=== PATIENT | male | born 1940 | race Caucasian/White ===

== ENCOUNTER 2016-06-29 03:07 | Inpatient (IN) | payer MEDICARE, MEDICAID ==
[~2016-06-29] VITALS: Ht 182.9 cm; Wt 102.2 kg
[2016-06-29] VITALS (25 sets, daily range): BP systolic 100–171; BP diastolic 63–97
[~2016-06-29 03:07] MED LIST: AGM875T PO; ASP81TEC PO; ASPI325T32 PO; ATEN25TA; AZIT-21 PO; CITA10TA; CLOP75TA; CLOP75TA PO; CLOP75TA28; FENO134C PO; FENO145T2 PO; FENO145T20; FNT100TD TD; FRSM40T; FURO20TA4; GBPN300C; HYDR-2890 PO; HYDR-32; HYDR-3720 PO; LISI-556; LISI2.5T PO; LISI2.5T56; LISI5TAB PO; LUBI24CA PO; METF500T4; METO25TA; MORP15TA PO; MORP60TA; MTF500T PO; MTL5T; MTP25TSR PO; MTX2.5T; NF-LUBIP24; NIA500ERT PO; OMEG-12 PO; ONDA4TAB11 PO; ORPH30AM2; OXYC-12; OXYC-12 PO; OXYC30TA76 PO; PGLT30T PO; PIOG1TBM PO; PIOG30TA25; PLAVIX; PREG150C; PREG300C PO; SIMV40TA2; SIMV40TA4 PO; SUCR1TAB PO; cefdinir
[2016-06-29] MEDS ORDERED: NS IV 1000 ML 1,000 ML IV ONE (03:18)
[2016-06-29 03:26] LABS: BASOPHILS % (AUTO) 1 % (0-10); EOSINOPHILS # (AUTO) 0.3 10^3/uL (0.0-0.3); EOSINOPHILS % (AUTO) 3 % (0-10); LYMPHOCYTES # (AUTO) 2.2 X 10^3 (1.0-4.0); LYMPHOCYTES % (AUTO) 28 % (12-44); MEAN CORPUSCULAR HEMOGLOBIN 28 PG (25-34); MEAN CORPUSCULAR HGB CONC 33 G/DL (32-36); MEAN CORPUSCULAR VOLUME 86 FL (80-99); MEAN PLATELET VOLUME 7.7 FL (7.4-10.4); MONOCYTES # (AUTO) 0.7 X 10^3 (0.0-1.0); MONOCYTES % (AUTO) 9 % (0-12); NEUTROPHILS # (AUTO) 4.6 X 10^3 (1.8-7.8); NEUTROPHILS % (AUTO) 59 % (42-75); PLATELET COUNT 312 10^3/uL (130-400); RED BLOOD COUNT 4.31 10^6/uL (4.35-5.85); RED CELL DISTRIBUTION WIDTH 13.2 % (10.0-14.5); WHITE BLOOD COUNT 7.7 10^3/uL (4.3-11.0)
[2016-06-29 03:42] LABS: ALANINE AMINOTRANSFERASE 20 U/L (0-55); ANION GAP 9 MMOL/L (5-14); ASPARTATE AMINO TRANSFERASE 21 U/L (5-34); BILIRUBIN,TOTAL 0.4 MG/DL (0.1-1.0); BLOOD UREA NITROGEN 33 MG/DL (7-18); BUN/CREATININE RATIO 27; CALCIUM 9.1 MG/DL (8.5-10.1); CARBON DIOXIDE 29 MMOL/L (21-32); CHLORIDE 99 MMOL/L (98-107); CREATININE SERUM 1.24 MG/DL (0.60-1.30); GFR ESTIMATED 57; GLUCOSE 130 MG/DL (70-105); MAGNESIUM 2.3 MG/DL (1.8-2.4); POTASSIUM 3.8 MMOL/L (3.6-5.0); SODIUM 137 MMOL/L (135-145); TOTAL PROTEIN 7.1 G/DL (6.4-8.2)
[2016-06-29 03:44] LABS: ALCOHOL < 10 MG/DL (<10)
[2016-06-29 03:48] LABS: TROPONIN I < 0.30 NG/ML (<0.30)
--- NOTE | 2016-06-29 04:12 | ED Fall/Injury ---
General Chief Complaint: Trauma-Non Activation Stated Complaint: [facility] Nursing Triage Note: fall from standing postion, c/o left rib pain. Source: patient Exam Limitations: no limitations History of Present Illness Time seen by provider: 03:09 Initial Comments This 75-year-old gentleman presents to the emergency room via EMS after having a fall in his restroom. He reports getting lightheaded when he went to the restroom. He fell into the bathtub striking his left lateral chest. He denies any head or neck injury. Reports intermittent episodes of dizziness/ lightheadedness over the past couple of years. He feels dry and constipated. He has a history of coronary artery disease and peripheral vascular disease. His last carotid artery exam on record was in 2008. Mentation and speech are sluggish but nursing staff familiar with him state this is his baseline. Dr. Reed in [place]. His neck cutter is Dr. Skaggs. Location Injury Occurred: home Occurred: just prior to arrival Allergies and Home Medications Allergies Coded Allergies: No Known Drug Allergies (Verified , 08/17/08) Home Medications Citalopram Hydrobromide 10 Mg Tablet #90 (Reported) Clopidogrel Bisulfate 75 Mg Tablet #90 (Reported) Fenofibrate Nanocrystallized 145 Mg Tablet #90 (Reported) Furosemide 20 Mg Tablet #90 (Reported) Lisinopril 2.5 Mg Tablet #90 (Reported) Lubiprostone 24 Mcg Capsule #60 (Reported) Metformin Hcl 500 Mg Tablet #180 (Reported) Metoprolol Succinate 25 Mg Tab.sr.24h #90 (Reported) Morphine Sulfate 60 Mg Tablet.sa #60 (Reported) Pioglitazone Hcl 30 Mg Tab #90 (Reported) Pregabalin 150 Mg Capsule #60 (Reported) Constitutional: no symptoms reported Eyes: No Symptoms Reported Ears, Nose, Mouth, Throat: no symptoms reported Respiratory: see HPI Cardiovascular: no symptoms reported Gastrointestinal: see HPI Genitourinary: no symptoms reported Musculoskeletal: see HPI Skin: no symptoms reported Psychiatric/Neurological: See HPI Past Aqpiian-Krbbwh-Lsjpes Hx Patient Social History Alcohol Use: Denies Use Recreational Drug Use: No Smoking Status: Never a Smoker Former Smoker/When Quit: Oct 07, 2004 Recent Foreign Travel: No Contact w/Someone Who Travel: No Recent Infectious Disease Expo: No Recent Hopitalizations: No Physical Abuse Screen: No Sexual Abuse: No Immunizations Up To Date Date of Pneumonia Vaccine: Oct 12, 2011 Seasonal Allergies Seasonal Allergies: No Surgeries HX Surgeries: Yes Surgeries: Coronary Stent, Orthopedic, Vascular Surgery (peripheral vascular stenting) Respiratory Hx Respiratory Disorders: No Cardiovascular Hx Cardiac Disorders: Yes Cardiac Disorders: Coronary Artery Disease, Heart Attack, Hypertension, Peripheral Vascular Neurological Hx Neurological Disorders: Yes Neurological Disorders: Neuropathy Reproductive System Hx Reproductive Disorders: No Sexually Transmitted Disease: No Genitourinary Hx Genitourinary Disorders: Yes Genitourinary Disorders: UTI-Chronic Gastrointestinal Hx Gastrointestinal Disorders: No Musculoskeletal Hx Musculoskeletal Disorders: Yes Musculoskeletal Disorders: Arthritis Endocrine Hx Endocrine Disorders: Yes Endocrine Disorders: Diabetes, Non-Insulin dep HEENT HX ENT Disorders: No Cancer Hx Cancer: No Psychosocial Hx Psychiatric Problems: Yes Behavioral Health Disorders: Depression Integumentary HX Skin/Integumentary Disorder: No Blood Transfusions Hx Blood Disorders: No Adverse Reaction to a Blood Tr: No Family Medical History Significant Family History: No Pertinent Family Hx Physical Exam Vital Signs Vital Sign - Last 12Hours 06/29/16 03:08 Temp 98.5 Pulse 88 Resp 16 B/P 150/89 Pulse Ox 99 O2 Delivery Room Air Capillary Refill : Less Than 3 Seconds General Appearance: WD/WN no apparent distress HEENT: PERRL/EOMI normal ENT inspection TMs normal other (oropharynx somewhat dry) Neck: normal inspection Cardiovascular: regular rate, rhythm no edema no murmur Respiratory: lungs clear normal breath sounds no respiratory distress no accessory muscle use other (left lateral chest tender to palpation) Gastrointestinal: normal bowel sounds non tender other (generally slightly firm abdomen) Extremities: normal inspection no pedal edema Neurologic/Psychiatric: no motor/sensory deficits alert normal mood/affect oriented x 3 other (mentation and speech slightly dulled) Skin: normal color warm/dry [place] Coma Score Best Eye Response: (4) Open Spontaneously Best Verbal Response: (5) Oriented Best Motor Response: (6) Obeys Commands [place] Total: 15 Progress/Results/Core Measures Results/Orders Lab Results Laboratory Tests Test 06/29/16 03:20 06/29/16 06:01 Range/Units Alanine Aminotransferase (ALT/SGPT) 20 0-55 U/L Albumin 4.0 3.2-4.5 G/DL Alkaline Phosphatase 74 40-136 U/L Anion Gap 9 5-14 MMOL/L Aspartate Amino Transf (AST/SGOT) 21 5-34 U/L BUN/Creatinine Ratio 27 Basophils # (Auto) 0.0 0.0-0.1 10^3/uL Basophils (%) (Auto) 1 0-10 % Blood Urea Nitrogen 33 H 7-18 MG/DL Calcium Level 9.1 8.5-10.1 MG/DL Carbon Dioxide Level 29 21-32 MMOL/L Chloride Level 99 98-107 MMOL/L Creatinine 1.24 0.60-1.30 MG/DL Eosinophils # (Auto) 0.3 0.0-0.3 10^3/uL Eosinophils (%) (Auto) 3 0-10 % Estimat Glomerular Filtration Rate 57 Glucose Level 130 H 70-105 MG/DL Hematocrit 37 L 36 L 40-54 % Hemoglobin 12.1 L 11.6 L 13.3-17.7 G/DL Lymphocytes # (Auto) 2.2 1.0-4.0 X 10^3 Lymphocytes (%) (Auto) 28 12-44 % Magnesium Level 2.3 1.8-2.4 MG/DL Mean Corpuscular Hemoglobin 28 25-34 PG Mean Corpuscular Hemoglobin Concent 33 32-36 G/DL Mean Corpuscular Volume 86 80-99 FL Mean Platelet Volume 7.7 7.4-10.4 FL Monocytes # (Auto) 0.7 0.0-1.0 X 10^3 Monocytes (%) (Auto) 9 0-12 % Neutrophils # (Auto) 4.6 1.8-7.8 X 10^3 Neutrophils (%) (Auto) 59 42-75 % Platelet Count 312 130-400 10^3/uL Potassium Level 3.8 3.6-5.0 MMOL/L Red Blood Count 4.31 L 4.35-5.85 10^6/uL Red Cell Distribution Width 13.2 10.0-14.5 % Serum Alcohol < 10 <10 MG/DL Sodium Level 137 135-145 MMOL/L Total Bilirubin 0.4 0.1-1.0 MG/DL Total Protein 7.1 6.4-8.2 G/DL Troponin I < 0.30 <0.30 NG/ML White Blood Count 7.7 4.3-11.0 10^3/uL My Orders Orders-LUIS A QUIROZ MD Alcohol (06/29/16 03:18) Cbc With Automated Diff (06/29/16 03:18) Comprehensive Metabolic Panel (06/29/16 03:18) Magnesium (06/29/16 03:18) Ua Culture If Indicated (06/29/16 03:18) Saline Lock/Iv-Start (06/29/16 03:18) Ns Iv 1000 Ml (Sodium Chloride 0.9%) (06/29/16 03:18) Troponin I (06/29/16 03:18) Chest 1 View, Ap/Pa Only (06/29/16 03:22) Ekg Tracing (06/29/16 03:49) Ct Chest/Abdomen/Pelvis W (06/29/16 03:49) Iohexol Injection (Omnipaque 350 Mg/Ml 1 (06/29/16 04:30) Ns (Ivpb) (Sodium Chloride 0.9% Ivpb Bag (06/29/16 04:30) Red Cells Leukocytes Reduced (06/29/16 04:49) Type And Screen (06/29/16 04:49) Fentanyl Injection (Sublimaze Injection (06/29/16 05:15) Hemoglobin And Hematocrit (06/29/16 05:31) Lidocaine 1% Injection (Xylocaine 1% Inj (06/29/16 06:12) Ns Iv 1000 Ml (Sodium Chloride 0.9%) (06/29/16 06:12) Heparin ([employer]) (Heparin ([employer])) (06/29/16 06:13) Fentanyl Injection (Sublimaze Injection (06/29/16 06:30) Medications Given in ED Current Medications Medications Dose Ordered Sig/Max Route Start Time Stop Time Status Last Admin Dose Admin Fentanyl Citrate 100 mcg ONCE ONCE IVP 06/29/16 05:15 06/29/16 05:16 DC 06/29/16 05:13 100 MCG Fentanyl Citrate 100 mcg ONCE ONCE IVP 06/29/16 06:30 06/29/16 06:32 DC 06/29/16 06:30 100 MCG Iohexol 100 ml ONCE ONCE IV 06/29/16 04:30 06/29/16 04:36 DC 06/29/16 04:21 100 ML Sodium Chloride 100 ml ONCE ONCE IV 06/29/16 04:30 06/29/16 04:36 DC 06/29/16 04:21 80 ML Sodium Chloride 1,000 ml @ 0 mls/hr Q0M ONCE IV 06/29/16 03:18 06/29/16 03:23 DC 06/29/16 03:27 0 MLS/HR Vital Signs/I&O Vital Sign - Last 12Hours 06/29/16 06/29/16 06/29/16 06/29/16 03:08 03:30 03:55 04:45 Temp 98.5 Pulse 88 91 87 97 Resp 16 17 9 15 B/P 150/89 135/87 148/81 146/97 Pulse Ox 99 94 99 98 O2 Delivery Room Air Room Air Room Air Room Air 06/29/16 06/29/16 06/29/16 06/29/16 05:02 05:16 05:30 06:00 Temp 98.2 Pulse 95 103 110 111 Resp 13 15 12 35 B/P 146/97 121/83 105/63 107/73 Pulse Ox 98 95 96 95 O2 Delivery Room Air Room Air Room Air Room Air 06/29/16 06/29/16 06:15 06:30 Temp 97.1 Pulse 113 114 Resp 28 18 B/P 138/84 Pulse Ox 94 94 O2 Delivery Room Air Room Air Blood Pressure Mean: 103 Progress Note #1: Time: 04:12 Progress Note after labs were reviewed. Patient was sent for CT of the chest, abdomen and pelvis for further evaluation of injuries. A liter of IV fluids is infusing. Progress Note #2: Time: 05:39 Progress Note Splenic hemorrhage was identified with active extravasation on CT scan. Case was discussed with the radiologist. Case was then reviewed with Dr. Garcia. Plan is for embolization versus surgery. Dr. Arias has been contacted and is agreeable to attempting embolization. laborer wrecking and salvaging team is being called in for the procedure. 4 units of PRBC are being held. Vital signs are stable at this time. Patient was given fentanyl 100 g for pain management. He normally takes a significant amount of morphine daily for maintenance pain management. He has not had any morphine since 16:00. Patient received 1 L of IV fluids.Dr. Garcia and Dr. Arias are in route. Patient is at higher risk for surgery given Plavix use and history of coronary artery disease and peripheral vascular disease. Therefore embolization seems to be a reasonable approach. I have suggested obtaining a carotid ultrasound at some point to further evaluate patient's syncopal/near syncopal episodes. Progress Note #3: Time: 05:59 Progress Note Patient is awaiting consultation with Dr. Garcia. Progress Note #4: Time: 06:37 Progress Note Patient was seen and evaluated by Dr. Holden. He was taken directly to [employer] [facility] for embolization. A second dose of Fentanyl was given for pain control. ECG Initial ECG Impression Date: Jun 29, 2016 Initial ECG Impression Time: 03:05 Initial ECG Rate: 87 Initial ECG Rhythm: Normal Sinus Comment sinus rhythm with no ST elevation or depression. LVH with secondary repolarization. No significant change from prior. Diagnostic Imaging Diagonstic Imaging: Xray Plain Films/CT/US/NM/MRI: chest Comments single view chest x-ray viewed by me. Report not available. No acute abnormalities appreciated. Diagonstic Imaging: CT Plain Films/CT/US/NM/MRI: chest, abdomen, pelvis Comments CT chest, abdomen, and pelvis viewed by me and statrad report reviewed. There are fractures of the 8-10 ribs without significant displacement. There is subtle anterior lateral seventh rib fracture as well. There is inferior splenic laceration with moderate to large. Splenic hematoma and active extravasation at the inferior aspect of the spleen. Surgical consultation was recommended. Small additional hemoperitoneum in the right upper quadrant and pelvis, likely related to splenic injury. There are fractures of L1 through L4 transverse processes of indeterminate age. Departure Impression Impression: Primary Impression: Spleen laceration Qualified Code: S36.039A - Unspecified laceration of spleen, initial encounter Additional Impressions: Fall on same level Qualified Code: W18.30XA - Fall on same level, unspecified, initial encounter Lightheadedness Rib fractures Qualified Code: S22.42XA - Multiple fractures of ribs, left side, initial encounter for closed fracture Disposition: ADMITTED INPATIENT Condition: Improved Decision to Admit Reason: Admit from ER (Trauma) Decision to Admit/Date: Jun 29, 2016 Time/Decision to Admit Time: 05:35 Departure-Patient Inst. Referrals: Hellen KRAMER MD (PCP/Family) Primary Care Physician LUIS A QUIROZ MD Jun 29, 2016 04:12
[2016-06-29] MEDS ORDERED: IOHEXOL 350 MG/ML 100 ML (OMNIPAQUE 350) VIAL IV ONE (04:30)
[2016-06-29] MEDS ORDERED: NS 100 ML (IVPB) BAG IV ONE (04:30)
[2016-06-29] MEDS ORDERED: fentaNYL INJECTION 100 MCG/2 ML AMP IVP ONE ×2 (05:15→06:30)
[2016-06-29] MEDS ORDERED: LIDOCAINE 1% INJ 20 ML (XYLOCAINE) VIAL ONE (06:12)
[2016-06-29] MEDS ORDERED: NS IV 1000 ML 1,000 ML ONE ×2 (06:12→07:15)
[2016-06-29] MEDS ORDERED: HEParin (CATH LAB) 2,000 ML IV ONE (06:13)
--- NOTE | 2016-06-29 06:26 | History & Physical-Surgical ---
History of Present Illness History of Present Illness Reason for visit/HPI This is a modified Trauma Activation. Pt is a 75 yo male with fall and CT shows Splenic Laceration. This 75-year-old gentleman presents to the emergency room via EMS after having a fall in his restroom. He reports getting lightheaded when he went to the restroom. He fell into the bathtub striking his left lateral chest. He denies striking his head; denies head or neck pain. Reports intermittent episodes of dizziness/lightheadedness over the past couple of years. He feels dry and constipated. He has a history of coronary artery disease and peripheral vascular disease. His last carotid artery exam on record was in 2008. Mentation and speech are sluggish. He complains of abdominal pain, rating it as at least 9 out of 10. He thinks his belly is a little bit distended. Location Injury Occurred: home Occurred: just prior to arrival Pt had stable vitals when I was called around 5 am, Pulse 90. Now it is 114. Hg was 12.1 and now just less than 3 hours later it is 11.6. On my way in we also called Interventional Radiology. Date of Admission 06/29/2016 I consulted on this patient on 06/29/16 06:21 Attending Physician Admitting Physician Hellen Tomas MD Consult Allergies and Home Medications Allergies Coded Allergies: No Known Drug Allergies (Verified , 08/17/08) Home Medications Citalopram Hydrobromide 10 Mg Tablet #90 (Reported) Clopidogrel Bisulfate 75 Mg Tablet #90 (Reported) Fenofibrate Nanocrystallized 145 Mg Tablet #90 (Reported) Furosemide 20 Mg Tablet #90 (Reported) Lisinopril 2.5 Mg Tablet #90 (Reported) Lubiprostone 24 Mcg Capsule #60 (Reported) Metformin Hcl 500 Mg Tablet #180 (Reported) Metoprolol Succinate 25 Mg Tab.sr.24h #90 (Reported) Morphine Sulfate 60 Mg Tablet.sa #60 (Reported) Pioglitazone Hcl 30 Mg Tab #90 (Reported) Pregabalin 150 Mg Capsule #60 (Reported) Past Jqaefbp-Pjwttl-Tmkkwi Hx Patient Social History Alcohol Use: Denies Use Recreational Drug Use: No Smoking Status: Never a Smoker Former Smoker/When Quit: Oct 07, 2004 Recent Foreign Travel: No Contact w/Someone Who Travel: No Recent Infectious Disease Expo: No Recent Hopitalizations: No Physical Abuse Screen: No Sexual Abuse: No Immunizations Up To Date Date of Pneumonia Vaccine: Oct 12, 2011 Seasonal Allergies Seasonal Allergies: No Surgeries HX Surgeries: Yes Surgeries: Coronary Stent, Gallbladder, Orthopedic, Vascular Surgery ( peripheral vascular stenting) Respiratory Hx Respiratory Disorders: No Cardiovascular Hx Cardiac Disorders: Yes Cardiac Disorders: Coronary Artery Disease, Heart Attack, Hypertension, Peripheral Vascular Neurological Hx Neurological Disorders: Yes Neurological Disorders: Neuropathy Reproductive System Hx Reproductive Disorders: No Sexually Transmitted Disease: No Genitourinary Hx Genitourinary Disorders: Yes Genitourinary Disorders: UTI-Chronic Gastrointestinal Hx Gastrointestinal Disorders: No Musculoskeletal Hx Musculoskeletal Disorders: Yes Musculoskeletal Disorders: Arthritis Endocrine Hx Endocrine Disorders: Yes Endocrine Disorders: Diabetes, Non-Insulin dep HEENT HX ENT Disorders: No Cancer Hx Cancer: No Psychosocial Hx Psychiatric Problems: Yes Behavioral Health Disorders: Depression Integumentary HX Skin/Integumentary Disorder: No Blood Transfusions Hx Blood Disorders: No Adverse Reaction to a Blood Tr: No Family Medical History Significant Family History: No Pertinent Family Hx, Cancer (brother of colon cancer), Diabetes (3 sisters) Constitutional: No chills, No diaphoresis, dizziness weakness EENTM: hearing loss vision lossNo throat swelling Respiratory: No cough, No dyspnea on exertion Cardiovascular: edemaNo palpitations, vascular heart diseas Gastrointestinal: abdominal painNo hematemesis, No melena, No nausea, No vomiting Genitourinary: No dysuria, No hematuria Musculoskeletal: back pain joint pain joint swelling muscle stiffness Skin: No change in color, No change in hair/nails Psychiatric/Neurological: Denies Anxiety, Denies Depressed, Paresthesia Weakness Other pt denies any swollen lymph nodes, no heat or cold intolerance. He does have diabetic neuropathy of his legs Physical Exam Vital Signs Vital Sign - Last 12Hours 06/29/16 03:08 Temp 98.5 Pulse 88 Resp 16 B/P 150/89 Pulse Ox 99 O2 Delivery Room Air Capillary Refill : Less Than 3 Seconds General Appearance: WD/WN Anxious Mild Distress Obese Eyes: Bilateral Eye EOMI, Bilateral Eye PERRL HEENT: Pharynx NormalNo Pale Conjunctivae (L), No Pale Conjunctivae (R) Neck: Non Tender Supple Respiratory: Lungs Clear Normal Breath Sounds No Accessory Muscle Use No Respiratory Distress Cardiovascular: No MurmurNo JVD, Tachycardia Gastrointestinal: Normal Bowel Sounds Distended Tenderness (diffusely) Rectal: Deferred Genital/Rectal: Normal Genital Exam (circumcised, no masses, testicles descended) Back: CVA Tenderness (L) Muscle Spasm Other (tender over ribs) Extremity: No Calf Tenderness Pedal Edema (up into mid sánchez level, erythema) Pelvis Stable Neurologic/Psychiatric: Alert No Motor/Sensory Deficits senior planner II-XII Norm as Tested Other (almost has a "foggy" mentation, cannot remember things about family) Skin: Normal Color Warm/Dry Lymphatic: No Adenopathy (neck, axilla or groin) Data Review Labs Laboratory Tests 06/29/16 03:20: Alanine Aminotransferase (ALT/SGPT) 20, Albumin 4.0, Alkaline Phosphatase 74, Anion Gap 9, Aspartate Amino Transf (AST/SGOT) 21, BUN/Creatinine Ratio 27, Basophils # (Auto) 0.0, Basophils (%) (Auto) 1, Blood Urea Nitrogen 33H, Calcium Level 9.1, Carbon Dioxide Level 29, Chloride Level 99, Creatinine 1.24, Eosinophils # (Auto) 0.3, Eosinophils (%) (Auto) 3, Estimat Glomerular Filtration Rate 57, Glucose Level 130H, Hematocrit 37L, Hemoglobin 12.1L, Lymphocytes # (Auto) 2.2, Lymphocytes (%) (Auto) 28, Magnesium Level 2.3, Mean Corpuscular Hemoglobin 28, Mean Corpuscular Hemoglobin Concent 33, Mean Corpuscular Volume 86, Mean Platelet Volume 7.7, Monocytes # (Auto) 0.7, Monocytes (%) (Auto) 9, Neutrophils # (Auto) 4.6, Neutrophils (%) (Auto) 59, Platelet Count 312, Potassium Level 3.8, Red Blood Count 4.31L, Red Cell Distribution Width 13.2, Serum Alcohol < 10, Sodium Level 137, Total Bilirubin 0.4, Total Protein 7.1, Troponin I < 0.30, White Blood Count 7.7 06/29/16 06:01: Hematocrit 36L, Hemoglobin 11.6L Assessment/Plan Assessment/Plan Assessment/Plan Trauma - Same level Fall Rib fracture 8,9, and 10 Splenic Laceration with intraperitoneal blood - Pt is going straight to specialist employee labor relations, will monitor H/H and he may need to go urgently to the OR. Pt was told about the splenic laceration and the possible need for surgery. If he needs surgery would try to first save spleen, but last resort would be splenectomy. If spleen is removed he is a risk of streptococcal sepsis and would need vaccinations. DM with neuropathy, CAD, Arthritis Max medical management. DEJAH REBOLLAR DO Jun 29, 2016 06:26
--- NOTE | 2016-06-29 06:57 | Diagnostic Imaging Report ---
Clinical indication: Patient is status post fall and complains of left rib pain. Exam: Portable chest x-ray upright view. Comparisons: Chest x-ray dated 10/16/2014. Findings: Lungs/pleura: Lungs are clear. There is no pneumothorax. There is no pleural effusion. Mediastinum: Unremarkable. Pulmonary vasculature: Unremarkable. Heart: Unremarkable. Bones/extrathoracic soft tissue: Concern for minimally displaced rib fracture involving the lateral aspect of the left T8 and T9 ribs. Impression: 1: Concern for minimally displaced rib fracture involving the lateral aspect of left T8 and T9 ribs. 2: Otherwise, there is no radiographic evidence of acute cardiopulmonary process. Dictated by: Dictated on workstation # [id number]
[2016-06-29] MEDS ORDERED: NS IV 1000 ML 1,000 ML IV SCH (07:30)
[2016-06-29] MEDS ORDERED: NS IV 500 ML 0 ML ONE (07:40)
[2016-06-29] MEDS: NS IV 1000 ML 1,000 ML IV SCH ×4 (08:00→20:02)
[2016-06-29] MEDS ORDERED: ONDANSETRON 4 MG/2 ML (SDV) Z0FRAN ONE (08:56)
[2016-06-29] MEDS ORDERED: proPOfol 200 MG/20 ML (DIPRIVAN) VIAL IV ONE (08:56)
[2016-06-29] MEDS ORDERED: ROCURONIUM 50 MG/5 ML (ZEMURON) VIAL IV ONE (08:56)
[2016-06-29] MEDS ORDERED: LACTATED RINGERS 1,000 ML IV ONE (08:56)
[2016-06-29] MEDS ORDERED: MIDAZOLAM 2 MG/2 ML (VERSED) VIAL ONE (08:57)
[2016-06-29] MEDS ORDERED: fentaNYL INJECTION 250 MCG/5 ML AMP ONE (08:57)
[2016-06-29] MEDS ORDERED: LACTATED RINGERS 1,000 ML IV PRN (09:34)
[2016-06-29] MEDS ORDERED: fentaNYL INJECTION 100 MCG/2 ML AMP ONE ×2 (09:35→22:32)
--- NOTE | 2016-06-29 10:44 | Radiology Progress Note ---
Progress Note-Radiology Progress Note s/p angiogram with distal embolization of splenic artery branchs that appeared to be feeding the lacerated area. The active bleeding stopped in the middle of the procedure spontaneously. Prophylactic distal embolization of 2 branches less than 10% of the spleen is performed. The procedure details will be dictated separately. ELIZABETH PEREZ MD Jun 29, 2016 10:44
--- NOTE | 2016-06-29 11:12 | Diagnostic Imaging Report ---
PROCEDURE: CT chest, abdomen, and pelvis with contrast. TECHNIQUE: Multiple contiguous axial images were obtained through the chest, abdomen, and pelvis after the administration of intravenous contrast. INDICATION: Fall. Left rib pain. CONTRAST: 100 mL of Omnipaque 350 was administered intravenously. COMPARISON: The exam from 04/07/2010 was reviewed. FINDINGS: CT CHEST: There is a nodule measuring 7 mm in the right middle lobe. This compares to a nodular density seen in the same area that appeared slightly smaller on the 2010 exam. Although it appears slightly larger at this time, the difference over 6 years is minimal and is favored to be benign. There is a 6 mm stable left lung base nodule in the left lower lobe. There is minimal atelectasis in the right lower lobe. There are minimally displaced left rib fractures involving the posterior aspects of the 12th, 10th, 9th, and 8th ribs. There is no bleeding into the peritoneal cavity. There is no hematoma in the mediastinum. The thoracic aorta is ectatic. There is no lymphadenopathy or soft tissue mass of significance seen. CT ABDOMEN AND PELVIS: There is a perisplenic moderate sized hematoma with evidence of active hemorrhage and contrast extravasation that accumulates in the perisplenic region. Some of the hemorrhage is subcapsular; however, most of it is into the adjacent perisplenic peritoneal cavity. A small amount of hemorrhage is seen in the pelvis. A small amount of perihepatic fluid is seen. The area of splenic laceration is within the lateral inferior aspect and is about 2.4 cm deep into the splenic parenchyma. This is a grade 3 peripheral splenic parenchymal injury. There is no extension of the injury into the splenic hilum or the major hilar vascular branches seen. The adrenal glands appear unremarkable. The pancreas appears unremarkable. The kidneys have symmetric enhancement and excretion without hematoma or laceration. No hydronephrosis. The liver demonstrate no laceration. There are cholecystectomy clips seen. The abdominal aorta demonstrates mild atherosclerotic plaque. There is mild atherosclerotic plaque in the common iliac arteries bilaterally. There is a prosthesis in the right hip with beam hardening artifacts obscuring portions of the pelvis. There is a normal appearance of the urinary bladder. The bowel loops appear grossly unremarkable. There is no free air identified. The osseous structures demonstrate degenerative changes in the lumbar spine. IMPRESSION: CT CHEST: 1. Minimally displaced left rib fractures involving the 8th, 9th, 10th, and 12th ribs without significant hemorrhage or contusion in the chest. 2. A nonspecific right middle lobe 7 mm nodule is minimally larger compared to the 2010 exam. A [address] chest is recommended. CT ABDOMEN/PELVIS: 1. Splenic laceration involving the inferior tip of the splenic parenchyma with surrounding subcapsular and peritoneal moderate hematoma with active hemorrhage. 2. No other solid organ injury is seen. A small amount of perihepatic and pelvic peritoneal hematoma is seen. The ER physician taking care of the patient has diagnosed the splenic injury and was also notified by radiology [employer] service. Dictated by: Dictated on workstation # [id number]
--- NOTE | 2016-06-29 12:39 | Radiology-Procedure Note ---
Procedures/Interventions Procedure/Intervention Procedure: Celiac angiogram, splenic artery angiogram and multiple distal branch splenic artery angiograms Embolization of distal subsegmental the splenic branch intraparenchymal arteries near the laceration. Followup splenic artery angiogram. Angiogram of the right groin. Closure of right common femoral arteriotomy with MynxGrip device. Conscious sedation for 3.5 hours INDICATION: Splenic artery laceration with a moderate sized perisplenic hematoma and evidence of arterial active extravasation of contrast on CT scan CONSENT: Informed consent was obtained from the patient. The risks, benefits, potential complications and alternatives were reviewed and all questions answered to the patient's satisfaction. Potential vascular, catheter related and nontarget embolization/chemotherapy related complications were discussed with the patient. The patient's vital signs, cardiac rhythm, and pulse oximetry were observed throughout the procedure by qualified nursing personnel. Sedation: Fentanyl 25 mcg IV. Contrast: 100 mL of Isovue 300. Fluoroscopy time: 85.3 minutes PROCEDURE: After maximal barrier sterile preparation and draping, 1% lidocaine was utilized for local anesthesia. Right common femoral artery puncture utilizing a micropuncture needle was performed The micropuncture access was exchanged over a wire for a 5 [place] sheath. Subsequently, a 5 [place] C2 Cobra catheter was advanced into the abdominal aorta. Subsequently, the catheter was repositioned into the celiac artery. Celiac angiogram was performed and demonstrates a patent splenic artery, and common hepatic artery. Second order selection into the splenic artery was performed and contrast power injection arteriogram with digital subtraction is performed and demonstrates active extravasation of contrast from the lower from lateral aspect of the spleen. Subsequently, a 2.8 [place] Prograte microcatheter was introduced into the Cobra catheter and the it was advanced into the splenic artery which is long and tortuous. The 5 [place] Cobra catheter was not stable enough for distal catheterization of the branch vessels of the splenic artery. Exchange over a wire for a 5 [place] angled tapered catheter is performed and the with attempted to be advanced further into the splenic artery without significant improvement in the stability. Loss of access resulted and the introduction of 4 [place] C2 Cobra that was introduced into the celiac trunk and then into the splenic artery was performed and negotiated with an angled glide wire into the proximal to mid portion of the splenic artery. It was impossible to advance the catheter due to significant tortuosity. This however was utilized for the introduction of a 2.8 [place] microcatheter which was advanced further into the splenic artery to the hilum of the and the branch vessels then were successfully catheterized. 2 main large branches at the bifurcation of the splenic artery with multiple other branches appearing within very short segment near the splenic hilum. Eventually after doing multiple catheterizations of a small branches and the focus in the branches of the vessels feeding the area of injury , 2 sixth order distal branches were embolized with Gelfoam slurry within the distal aspect of the spleen feeding the spleen around the laceration site and the another similar branch was embolized with the 2 mm coils, 2 coils were utilized. The embolization is based on the abnormal angiogram and site of laceration without active extravasation seen at this point. Active extravasation stopped spontaneously during the exam. Followup angiogram from the splenic artery mainstem demonstrate satisfactory results with embolized the branches around the laceration and no active extravasation was present. Subsequently, the microcatheter and the 4 [place] Cobra catheter was removed over a wire. Subsequently, utilizing the sheath in the right groin, an angiogram was performed with the tip of the sheath in the right external iliac artery. The external iliac and the common femoral artery and the bifurcation are all patent. There is good position of the arterial access over the femoral head in the mid common femoral artery suitable for closure device. Closure device utilizing MynxGrip collagen plug is successfully utilized with no immediate hematoma or bleeding noted. The patient tolerated the procedure well with no immediate complications. FINDINGS: Active extravasation of contrast is seen from inferior lateral aspect of the spleen with the irregularities in the parenchyma in the enhancement compatible with splenic lacerations. This involves about 10% of the splenic parenchyma inferiorly and laterally. The initial angiograms demonstrated the active extravasation that has resolved spontaneously during procedure. The distal branches near the laceration, total of a 2 branches embolized with Gelfoam and one branch embolized with the 2 mm coils was performed in the distal branches which had some distal irregularity and adjacent to the laceration based on the location without active extravasation at this time. This is felt to be appropriate to prevent rebleeding since this cessation of active extravasation could be temporary spasm or in adequate left related. It should be safe without the splenic complications given the very distal embolization. IMPRESSION: Successful embolization of distal splenic artery branches to the inferior lateral aspect of the spleen near the site of laceration. ELIZABETH PEREZ MD Jun 29, 2016 12:39
[2016-06-29] MEDS ORDERED: inSUlin (REGULAR) HUMAN 1 UNIT/0.01 ML (CHARGE PER UNIT) SC SCH (19:30)
[2016-06-29 21:55] LABS: ABG HCO3 25 MMOL/L (23-27); ABG OXYGEN SATURATION 95 % (94-100); ABG PCO2 41 MMHG (35-45); ABG PH 7.42 (7.37-7.43); ABG PO2 69 MMHG (79-93); ABG TCO2 26.5 MMOL/L (21.0-31.0)
[2016-06-29 22:05] LABS: ALLENS TEST YES-POS; PATIENT TEMP 100.3
[2016-06-29] MEDS: fentaNYL INJECTION 100 MCG/2 ML AMP IV PRN (22:44)
[2016-06-29] MEDS ORDERED: fentaNYL INJECTION 100 MCG/2 ML AMP IVP PRN (22:45)
[2016-06-30] VITALS (24 sets, daily range): BP systolic 120–174; BP diastolic 72–99
[2016-06-30] MEDS: inSUlin (REGULAR) HUMAN 1 UNIT/0.01 ML (CHARGE PER UNIT) SC SCH ×4 (01:22→18:20)
[2016-06-30] MEDS: fentaNYL INJECTION 100 MCG/2 ML AMP IV PRN ×2 (01:22→02:54)
[2016-06-30] MEDS: ONDANSETRON 4 MG/2 ML (SDV) Z0FRAN IVP PRN ×4 (02:34→23:40)
[2016-06-30 04:28] LABS: BASOPHILS % (AUTO) 0 % (0-10); EOSINOPHILS % (AUTO) 0 % (0-10); LYMPHOCYTES % (AUTO) 8 % (12-44); MEAN CORPUSCULAR HEMOGLOBIN 28 PG (25-34); MEAN CORPUSCULAR HGB CONC 32 G/DL (32-36); MEAN CORPUSCULAR VOLUME 87 FL (80-99); MEAN PLATELET VOLUME 8.1 FL (7.4-10.4); MONOCYTES % (AUTO) 8 % (0-12); NEUTROPHILS # (AUTO) 9.7 X 10^3 (1.8-7.8); NEUTROPHILS % (AUTO) 83 % (42-75); PLATELET COUNT 286 10^3/uL (130-400); RED CELL DISTRIBUTION WIDTH 13.4 % (10.0-14.5); WHITE BLOOD COUNT 11.6 10^3/uL (4.3-11.0)
[2016-06-30 04:42] LABS: ANION GAP 9 MMOL/L (5-14); BLOOD UREA NITROGEN 26 MG/DL (7-18); BUN/CREATININE RATIO 25; CALCIUM 8.5 MG/DL (8.5-10.1); CARBON DIOXIDE 24 MMOL/L (21-32); CHLORIDE 106 MMOL/L (98-107); CREATININE SERUM 1.02 MG/DL (0.60-1.30); GFR ESTIMATED > 60; GLUCOSE 172 MG/DL (70-105); MAGNESIUM 2.1 MG/DL (1.8-2.4); PHOSPHORUS 2.2 MG/DL (2.3-4.7); POTASSIUM 3.9 MMOL/L (3.6-5.0); SODIUM 139 MMOL/L (135-145)
[2016-06-30] MEDS: MAGNESIUM 1 GM/100 ML IVPB 100 ML IV SCH (05:24)
[2016-06-30] MEDS: KCL 20 MEQ TAB (K-DUR) PO SCH (05:24)
[2016-06-30] MEDS: POTASSIUM CL 10MEQ/50ML IVPB 50 ML IV SCH (05:24)
[2016-06-30] MEDS ORDERED: NS IV 1000 ML 1,000 ML ONE (05:38)
--- NOTE | 2016-06-30 08:05 | Diagnostic Imaging Report ---
Portable upright radiograph of the chest. INDICATION: Dyspnea. FINDINGS: Bibasilar atelectasis is seen. The heart size is at the upper limits of normal. There is no effusion or pneumothorax. The mediastinum and marli appear unremarkable. IMPRESSION: Bibasilar atelectasis. Dictated by: Dictated on workstation # [id number]
[2016-06-30] MEDS: CLOPIDOGREL 75 MG (PLAVIX) TABLET PO SCH (08:32)
[2016-06-30] MEDS ORDERED: MORP60TA52 PO (10:37)
[2016-06-30] MEDS ORDERED: MORP15TA PO (10:37)
[2016-06-30] MEDS: NS IV 1000 ML 1,000 ML IV SCH ×2 (12:00→15:49)
--- NOTE | 2016-06-30 13:41 | Progress Note ---
Subjective Subjective/Events-last exam Pt seen and examined, he is having some nausea and vomiting. States he is hungry but can't keep it down. Pt complains of some abdominal pain. Review of Systems General: No Chills, No Night Sweats HEENT: Head AchesNo Visual Changes Pulmonary: No Cough Cardiovascular: No: Chest Pain, Palpitations Gastrointestinal: : Abdominal Pain: Nausea: Vomiting Neurological: No: Change in speech, Weakness Objective Exam Vital Signs Date Time Temp Pulse Resp B/P Pulse Ox O2 Delivery O2 Flow Rate FiO2 06/30/16 12:33 99.4 06/30/16 12:00 Room Air 06/30/16 12:00 91 10 174/91 99 Room Air 06/30/16 11:00 94 7 162/84 93 Room Air 06/30/16 10:00 121 18 168/91 95 Room Air 06/30/16 08:30 98.8 89 10 154/76 94 Room Air 06/30/16 08:15 Room Air 06/30/16 08:00 90 21 154/76 95 Room Air 06/30/16 07:00 85 06/30/16 07:00 86 17 132/77 93 Room Air 06/30/16 06:00 89 11 146/78 94 Room Air 06/30/16 05:00 90 9 152/75 95 Room Air 06/30/16 04:00 97 Room Air 06/30/16 04:00 98.4 90 18 150/78 94 Room Air 06/30/16 03:00 92 24 148/95 92 Room Air 06/30/16 02:00 87 10 143/79 96 Room Air 06/30/16 01:00 90 06/30/16 01:00 89 7 145/86 95 Room Air 06/30/16 00:00 97 Room Air 06/30/16 00:00 98.5 87 20 140/74 97 Room Air 06/29/16 23:00 87 9 149/81 95 Room Air 06/29/16 22:00 91 11 144/75 96 Room Air 06/29/16 21:00 91 11 146/75 92 Room Air 06/29/16 20:00 96 Room Air 06/29/16 20:00 99.2 89 18 142/96 96 Room Air 06/29/16 19:00 92 13 142/96 95 Room Air 06/29/16 19:00 92 06/29/16 18:00 95 12 171/97 97 Room Air 06/29/16 17:20 112 17 120/71 95 Room Air 06/29/16 16:55 97 10 97 Room Air 06/29/16 16:00 99.1 06/29/16 15:00 98 35 118/68 98 Room Air 06/29/16 14:30 104 10 107/77 95 Room Air I & O 06/30/16 07:00 Intake Total 2180 ml Output Total 850 ml Balance 1330 ml Capillary Refill : Less Than 3 Seconds General Appearance: WD/WN Anxious Mild Distress Obese HEENT: Pharynx NormalNo Pale Conjunctivae (L), No Pale Conjunctivae (R) Neck: Non Tender Supple Respiratory: Lungs Clear Normal Breath Sounds No Accessory Muscle Use No Respiratory Distress Cardiovascular: No MurmurNo JVD, Tachycardia Gastrointestinal: normal bowel sounds distended (slightly more than normal for pt) tenderness (diffusely) other (generally slightly firm abdomen) Extremity: No Calf Tenderness Pedal Edema (up into mid sánchez level, erythema) Pelvis Stable Neurologic/Psychiatric: Alert No Motor/Sensory Deficits browning processor II-XII Norm as Tested Other (Pt knows he is in hospital and knows its in [place], knows his name....but you almost have to drag the information out of him.) Skin: Normal Color Warm/Dry Lymphatic: No Adenopathy (neck, axilla or groin) Results Lab Laboratory Tests 06/29/16 13:54: Hemoglobin 9.3L 06/29/16 21:45: Loyd Test YES-POS, Arterial Blood Base Excess 1.0, Arterial Blood HCO3 25, Arterial Blood Oxygen Saturation 95, Arterial Blood Partial Pressure CO2 41, Arterial Blood Partial Pressure O2 69L, Arterial Blood Total CO2 26.5, Arterial Blood pH 7.42, Blood Gas Inspired Oxygen ROOM AIR, Blood Gas Patient Temperature 100.3, Blood Gas Puncture Site RT RADIAL, Blood Gas Ventilator Setting NO 06/30/16 01:18: Glucometer 211H 06/30/16 03:50: Hemoglobin 8.7L, Anion Gap 9, BUN/Creatinine Ratio 25, Basophils # (Auto) 0.0, Basophils (%) (Auto) 0, Blood Urea Nitrogen 26H, Calcium Level 8.5, Carbon Dioxide Level 24, Chloride Level 106, Creatinine 1.02, Eosinophils # (Auto) 0.0 , Eosinophils (%) (Auto) 0, Estimat Glomerular Filtration Rate > 60, Glucose Level 172H, Hematocrit 27L, Lymphocytes # (Auto) 1.0, Lymphocytes (%) (Auto) 8L , Magnesium Level 2.1, Mean Corpuscular Hemoglobin 28, Mean Corpuscular Hemoglobin Concent 32, Mean Corpuscular Volume 87, Mean Platelet Volume 8.1, Monocytes # (Auto) 1.0, Monocytes (%) (Auto) 8, Neutrophils # (Auto) 9.7H, Neutrophils (%) (Auto) 83H, Phosphorus Level 2.2L, Platelet Count 286, Potassium Level 3.9, Red Blood Count 3.10L, Red Cell Distribution Width 13.4, Sodium Level 139, White Blood Count 11.6H 06/30/16 12:32: Glucometer 146H Assessment/Plan Assessment/Plan Assessment/Plan Trauma - Same level Fall -- will keep in ICU one more day for close monitoring. Rib fracture 8,9, and 10 Splenic Laceration with intraperitoneal blood Anemia secondary to splenic lac - monitor H/H Dizzy spells - order Carotid US to rule out carotids as cause of mentation DM with neuropathy, CAD, Arthritis Max medical management; will consult hospitalist. Clinical Quality Measures DVT/VTE Risk/Contraindication: Risk Factor Score Per Nursin RFS Level Per Nursing on Admit: 3=High DEJAH REBOLLAR DO Jun 30, 2016 13:41
--- NOTE | 2016-06-30 14:50 | Diagnostic Imaging Report ---
PROCEDURE: US Carotid Duplex Bilateral. TECHNIQUE: Multiple real-time grayscale images were obtained over the carotid arteries in various projections bilaterally. Additional duplex Doppler and color Doppler images were also obtained. INDICATION: Dizziness. FINDINGS: Grayscale images demonstrate mild atherosclerotic plaque seen in the carotid bifurcation bilaterally. The color Doppler evaluation demonstrates patency of the common, internal, and external carotid arteries on both sides. There is antegrade flow in the left vertebral artery and antegrade flow in the right vertebral artery as well. The peak systolic velocities in the right ICA are 52, 88, and 116 cm/s from proximal/ distal and on the left 114, 109, and 96 cm/s. ICA/ CCA ratios are up to 1.9 on the right and up to 2.0 on the left side. The left proximal internal carotid artery has a short-segment of obscured portion of the vessel due to shadowing from a calcified plaque. IMPRESSION: Calcified plaque is seen along the carotid bifurcation bilaterally with minimal elevation of internal carotid artery velocities suggestive of stenosis in the range of 25-50% bilaterally. Dictated by: Dictated on workstation # [id number]
--- NOTE | 2016-06-30 16:10 | Consultation-Cardiology ---
HPI-Cardiology Cardiology Consultation Date of Consultation 06/30/16 Date of Admission Indication: Coronary artery disease HPI 75-year-old gentleman was admitted after sustaining a fall in the bathtub yesterday, patient expressed that he felt lightheaded which has been a chronic problem for the last few years. Matthews lightheaded and fell in the bathtub. Does not recall having a syncopal episode, sustained a broken rib with liver laceration, underwent embolization of the liver. He is laying down in bed, tired, poor historian. Did not provide history does not recall having history of coronary artery disease, after reviewing his record he has seen Dr. Skaggs who performed multiple procedures in the past for him. He denied any chest pain or palpitation prior to the fall. Did not see Dr. Skaggs for the last 40 years. Seen by primary physician Jarrod gallegos. Has history of ischemic cardiomyopathy in the past also no recent follow-up was done. Home Medications & Allergies Allergies: Coded Allergies: No Known Drug Allergies (Verified , 08/17/08) Home Medication List Reviewed: Yes [id number] Hx Patient Social History Alcohol Use: Denies Use Recreational Drug Use: No Smoking Status: Former Smoker Former smoker/When Quit: Oct 07, 2004 Recent Foreign Travel: No Recent Infectious Disease Expo: No Recent Hopitalizations: No Physical Abuse Screen: No Sexual Abuse: No Immunizations Up To Date Date of Pneumonia Vaccine: Oct 12, 2011 Date of Influenza Vaccine: Mar 21, 2016 Past Medical History Past medical history as discussed below Family Medical History Significant Family History: No Pertinent Family Hx, Cancer (brother of colon cancer), Diabetes (3 sisters) Family History: Colon cancer G8 BROTHER, Onset:55 FHx: brain tumor G8 SISTER Constitutional: see HPI dizziness malaise weakness EENTM: no symptoms reported see HPI Respiratory: see HPI dyspnea on exertion Cardiovascular: see HPI chest pain (Musculoskeletal) Gastrointestinal: LUQ see HPI abdominal pain constipation Genitourinary: no symptoms reported see HPI Musculoskeletal: see HPI back pain joint pain Skin: no symptoms reported see HPI Psychiatric/Neurological: No Symptoms Reported See HPI Reviewed Test Results Reviewed Test Results Lab Laboratory Tests Test 06/29/16 21:45 06/30/16 01:18 06/30/16 03:50 06/30/16 12:32 Range/Units Loyd Test YES-POS Arterial Blood Base Excess 1.0 -2.5-2.5 MMOL/L Arterial Blood HCO3 25 23-27 MMOL/L Arterial Blood Oxygen Saturation 95 94-100 % Arterial Blood Partial Pressure CO2 41 35-45 MMHG Arterial Blood Partial Pressure O2 69 L 79-93 MMHG Arterial Blood Total CO2 26.5 21.0-31.0 MMOL/L Arterial Blood pH 7.42 7.37-7.43 Blood Gas Inspired Oxygen ROOM AIR Blood Gas Patient Temperature 100.3 Blood Gas Puncture Site RT RADIAL Blood Gas Ventilator Setting NO Glucometer 211 H 146 H 70-110 MG/DL Anion Gap 9 5-14 MMOL/L BUN/Creatinine Ratio 25 Basophils # (Auto) 0.0 0.0-0.1 10^3/uL Basophils (%) (Auto) 0 0-10 % Blood Urea Nitrogen 26 H 7-18 MG/DL Calcium Level 8.5 8.5-10.1 MG/DL Carbon Dioxide Level 24 21-32 MMOL/L Chloride Level 106 98-107 MMOL/L Creatinine 1.02 0.60-1.30 MG/DL Eosinophils # (Auto) 0.0 0.0-0.3 10^3/uL Eosinophils (%) (Auto) 0 0-10 % Estimat Glomerular Filtration Rate > 60 Glucose Level 172 H 70-105 MG/DL Hematocrit 27 L 40-54 % Hemoglobin 8.7 L 13.3-17.7 G/DL Lymphocytes # (Auto) 1.0 1.0-4.0 X 10^3 Lymphocytes (%) (Auto) 8 L 12-44 % Magnesium Level 2.1 1.8-2.4 MG/DL Mean Corpuscular Hemoglobin 28 25-34 PG Mean Corpuscular Hemoglobin Concent 32 32-36 G/DL Mean Corpuscular Volume 87 80-99 FL Mean Platelet Volume 8.1 7.4-10.4 FL Monocytes # (Auto) 1.0 0.0-1.0 X 10^3 Monocytes (%) (Auto) 8 0-12 % Neutrophils # (Auto) 9.7 H 1.8-7.8 X 10^3 Neutrophils (%) (Auto) 83 H 42-75 % Phosphorus Level 2.2 L 2.3-4.7 MG/DL Platelet Count 286 130-400 10^3/uL Potassium Level 3.9 3.6-5.0 MMOL/L Red Blood Count 3.10 L 4.35-5.85 10^6/uL Red Cell Distribution Width 13.4 10.0-14.5 % Sodium Level 139 135-145 MMOL/L White Blood Count 11.6 H 4.3-11.0 10^3/uL Physical Exam Vital Signs Vital Sign - Last 12Hours 06/29/16 03:08 Temp 98.5 Pulse 88 Resp 16 B/P 150/89 Pulse Ox 99 O2 Delivery Room Air Capillary Refill : Less Than 3 Seconds General Appearance: WD/WN Moderate Distress Eyes: Bilateral Eye EOMI, Bilateral Eye Normal Inspection, Bilateral Eye PERRL HEENT: PERRL/EOMI TMs Normal Normal ENT Inspection Pharynx Normal Neck: Full Range of Motion Normal Inspection Non Tender Supple Carotid Bruit Respiratory: Chest Non Tender Lungs Clear Normal Breath Sounds No Accessory Muscle Use No Respiratory Distress Cardiovascular: Regular Rate, Rhythm No Edema No Gallop No JVD Normal Peripheral Pulses Systolic Murmur Gastrointestinal: Normal Bowel Sounds No Organomegaly No Pulsatile Mass Non Tender Soft Back: Normal Inspection No CVA Tenderness No Vertebral Tenderness Extremity: Normal Capillary Refill Normal Inspection Normal Range of Motion Non Tender No Calf Tenderness Pedal Edema (Mild edema) Neurologic/Psychiatric: Alert Oriented x3 No Motor/Sensory Deficits Normal Mood/Affect Skin: Normal Color Warm/Dry Lymphatic: No Adenopathy A/P-Cardiology Admission Diagnosis Rib fracture Coronary artery disease Congestive heart failure, chronic compensated left ventricle systolic dysfunction, ischemic cardiomyopathy Hyperlipidemia Assessment/Plan Status post fall and rib fracture with liver laceration, status post embolization to the liver. Questionable cause for syncope could be hypotension versus arrhythmia. Autonomic dysfunction. Patient is monitored on telemetry. Continue to monitor H&H. Planning to evaluate echocardiogram Coronary artery disease, multiple intervention the past, last procedure reported in 2011. Patient had a patent stent in the mid LAD, at 10 2.2512 mm, 70 percent stenosis in the proximal ramus intermedius artery which was not intervened on. No further workup was done since 2011. Planning to evaluate echocardiogram Chronic dizziness and lightheadedness, no syncope was reported in the past. Mild bilateral carotid stenosis, ultrasound was done today. History of ischemic cardiomyopathy with diffuse left ventricular hypokinesia and ejection fraction 30-35 percent per last study in 2011, planning to repeat echocardiogram and monitor. 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 Hyperlipidemia Diabetes mellitus, followed and managed by primary care physician Peripheral neuropathy Gastroesophageal reflux disease Degenerative joint disease, neuropathy, chronic back pain Clinical Quality Measures DVT/VTE Risk/Contraindication: Risk Factor Score Per Nursin RFS Level Per Nursing on Admit: 3=High RODRI JOLLY MD Jun 30, 2016 16:10
[2016-07-01] VITALS (23 sets, daily range): BP systolic 126–174; BP diastolic 64–92
[2016-07-01] MEDS: inSUlin (REGULAR) HUMAN 1 UNIT/0.01 ML (CHARGE PER UNIT) SC SCH ×6 (00:19→22:22)
[2016-07-01] MEDS: NS IV 1000 ML 1,000 ML IV SCH (01:37)
[2016-07-01 04:02] LABS: BASOPHILS % (AUTO) 0 % (0-10); EOSINOPHILS % (AUTO) 0 % (0-10); LYMPHOCYTES # (AUTO) 0.9 X 10^3 (1.0-4.0); LYMPHOCYTES % (AUTO) 7 % (12-44); MEAN CORPUSCULAR HEMOGLOBIN 28 PG (25-34); MEAN CORPUSCULAR HGB CONC 32 G/DL (32-36); MEAN CORPUSCULAR VOLUME 87 FL (80-99); MEAN PLATELET VOLUME 8.1 FL (7.4-10.4); MONOCYTES # (AUTO) 1.1 X 10^3 (0.0-1.0); MONOCYTES % (AUTO) 8 % (0-12); NEUTROPHILS # (AUTO) 11.7 X 10^3 (1.8-7.8); NEUTROPHILS % (AUTO) 85 % (42-75); PLATELET COUNT 249 10^3/uL (130-400); RED BLOOD COUNT 2.96 10^6/uL (4.35-5.85); RED CELL DISTRIBUTION WIDTH 13.3 % (10.0-14.5); WHITE BLOOD COUNT 13.6 10^3/uL (4.3-11.0)
[2016-07-01 04:18] LABS: ANION GAP 10 MMOL/L (5-14); BLOOD UREA NITROGEN 20 MG/DL (7-18); BUN/CREATININE RATIO 24; CALCIUM 8.2 MG/DL (8.5-10.1); CARBON DIOXIDE 21 MMOL/L (21-32); CHLORIDE 108 MMOL/L (98-107); CREATININE SERUM 0.84 MG/DL (0.60-1.30); GFR ESTIMATED > 60; GLUCOSE 155 MG/DL (70-105); MAGNESIUM 1.8 MG/DL (1.8-2.4); PHOSPHORUS 1.6 MG/DL (2.3-4.7); POTASSIUM 3.5 MMOL/L (3.6-5.0); SODIUM 139 MMOL/L (135-145)
[2016-07-01 04:26] LABS: BAND NEUTROPHILS 0 %; BASOPHILS % (MANUAL) 0 %; EOSINOPHILS % (MANUAL) 0 %; HYPOCHROMASIA SLIGHT; LYMPHOCYTES % (MANUAL) 6 %; NEUTROPHILS % (MANUAL) 87 %; POIKILOCYTOSIS SLIGHT
[2016-07-01] MEDS: POTASSIUM CL 10MEQ/50ML IVPB 50 ML IV SCH ×3 (05:14→06:12)
[2016-07-01] MEDS: MAGNESIUM 1 GM/100 ML IVPB 100 ML IV SCH (06:00)
[2016-07-01] MEDS: KCL 20 MEQ TAB (K-DUR) PO SCH (06:00)
[2016-07-01] MEDS: fentaNYL INJECTION 100 MCG/2 ML AMP IV PRN (06:10)
--- NOTE | 2016-07-01 06:11 | Pulmonary Consultation ---
History of Present Illness History of Present Illness Date of Consultation 07/01/16 06:06 Date of Admission Reason for Visit: Coronary artery disease History of Present Illness 75yo presented to ED via EMS s/p fall and CT shows splenic laceration. PT was lightheaded and went to restroom and fell striking bathtub. He did not hit head. Reports intermittent episodes of dizziness/lightheadedness over the past couple of years. He was also found to have RIb fractures 8-10. Dr. Hanson is consulting me for ICU management. Allergies and Home Medications Allergies Coded Allergies: No Known Drug Allergies (Verified , 08/17/08) Home Medications Lubiprostone 24 Mcg Capsule 24 MCG PO BID (Reported) Morphine Sulfate 60 Mg Tablet.er 60 MG PO BID (Reported) Morphine Sulfate 15 Mg Tablet 15 MG PO Q6H PRN PRN PAIN (Reported) Past Esipvmg-Jdkdxw-Zlfepo Hx Patient Social History Alcohol Use: Denies Use Recreational Drug Use: No Smoking Status: Former Smoker Former Smoker/When Quit: Oct 07, 2004 Recent Foreign Travel: No Contact w/Someone Who Travel: No Recent Infectious Disease Expo: No Recent Hopitalizations: No Physical Abuse Screen: No Sexual Abuse: No Immunizations Up To Date Date of Pneumonia Vaccine: Oct 12, 2011 Date of Influenza Vaccine: Mar 21, 2016 Seasonal Allergies Seasonal Allergies: No Surgeries HX Surgeries: Yes Surgeries: Coronary Stent, Gallbladder, Orthopedic, Vascular Surgery ( peripheral vascular stenting) Respiratory Hx Respiratory Disorders: No Cardiovascular Hx Cardiac Disorders: Yes Cardiac Disorders: Coronary Artery Disease, Heart Attack, Hypertension, Peripheral Vascular Neurological Hx Neurological Disorders: Yes Neurological Disorders: Neuropathy Reproductive System Hx Reproductive Disorders: No Sexually Transmitted Disease: No Genitourinary Hx Genitourinary Disorders: Yes Genitourinary Disorders: UTI-Chronic Gastrointestinal Hx Gastrointestinal Disorders: No Musculoskeletal Hx Musculoskeletal Disorders: Yes Musculoskeletal Disorders: Arthritis Endocrine Hx Endocrine Disorders: Yes Endocrine Disorders: Diabetes, Non-Insulin dep HEENT HX ENT Disorders: No Cancer Hx Cancer: No Psychosocial Hx Psychiatric Problems: Yes Behavioral Health Disorders: Depression Integumentary HX Skin/Integumentary Disorder: No Blood Transfusions Hx Blood Disorders: No Adverse Reaction to a Blood Tr: No Family Medical History Significant Family History: No Pertinent Family Hx, Cancer (brother of colon cancer), Diabetes (3 sisters) Family Medial History: Colon cancer G8 BROTHER, Onset:55 FHx: brain tumor G8 SISTER Review of Systems Constitutional: : Malaise: Sweats: WeaknessNo: Chills, Fever, Other Eyes: No: Conjunctivae inflammation, Eyelid inflammation, Other, Pain, Redness , Vision change ENT: No: Ear discharge, Ear pain, Mouth pain, Mouth swelling, Nose congestion, Nose discharge, Nose pain, Other, Throat pain, Throat swelling Respiratory: : Cough: SOB with excertion: Shortness of breath Cardiovascular: No: Chest Pain, Edema, Lt Headedness, Orthopnea, Other, Palpitations, Paroxysmal Noc. Dyspnea Gastrointestinal: : Abdominal Pain: Constipation: Diarrhea: Nausea: VomitingNo : Hematochezia, Melena, Other Genitourinary: No Dysuria, No Frequency, No Incontinence, No Hematuria, No Retention, No Other Musculoskeletal: : back painNo: arm pain, foot pain, hand pain, leg pain, neck pain, other, shoulder pain Skin: : BruisingNo: Jaundice, Lesions, Other, Rash Neurological: : Confusion: Incoordination: Weakness Exam Exam Vital Signs Date Time Temp Pulse Resp B/P Pulse Ox O2 Delivery O2 Flow Rate FiO2 07/01/16 04:00 98 Nasal Cannula 2.00 07/01/16 02:00 97 18 133/88 99 Nasal Cannula 2.00 07/01/16 01:00 105 07/01/16 01:00 105 31 132/81 97 Nasal Cannula 2.00 07/01/16 00:00 100.6 93 17 138/80 98 Nasal Cannula 2.00 07/01/16 00:00 98 Nasal Cannula 2.00 06/30/16 23:00 109 32 159/76 97 Nasal Cannula 2.00 06/30/16 22:20 108 23 98 Nasal Cannula 2.00 06/30/16 22:00 100 28 147/99 92 Room Air 06/30/16 21:00 100 14 127/73 94 Room Air 06/30/16 20:00 100.3 95 10 120/80 96 Room Air 06/30/16 20:00 96 Room Air 2.00 06/30/16 19:00 94 26 133/72 95 Room Air 06/30/16 19:00 94 06/30/16 18:00 94 16 156/85 94 Room Air 06/30/16 17:00 98 18 143/81 92 Room Air 06/30/16 16:51 Nasal Cannula 2.00 06/30/16 16:00 97 7 149/80 95 Room Air 06/30/16 16:00 Nasal Cannula 2.00 06/30/16 15:49 100.9 06/30/16 15:00 100 29 149/76 Room Air 06/30/16 14:00 92 14 145/77 Room Air 06/30/16 13:00 97 7 159/93 93 Room Air 06/30/16 13:00 94 06/30/16 12:33 99.4 06/30/16 12:00 Room Air 06/30/16 12:00 91 10 174/91 99 Room Air 06/30/16 11:00 94 7 162/84 93 Room Air 06/30/16 10:00 121 18 168/91 95 Room Air 06/30/16 08:30 98.8 89 10 154/76 94 Room Air 06/30/16 08:15 Room Air 06/30/16 08:00 90 21 154/76 95 Room Air 06/30/16 07:00 85 06/30/16 07:00 86 17 132/77 93 Room Air I & O 07/01/16 06:59 Intake Total 2255 ml Output Total 1840 ml Balance 415 ml General Appearance: WD/WN Moderate Distress HEENT: PERRL/EOMI TMs Normal Normal ENT Inspection Pharynx Normal Neck: Full Range of Motion Normal Inspection Non Tender Supple Carotid Bruit Respiratory: Chest Non Tender Lungs Clear Normal Breath Sounds No Accessory Muscle Use No Respiratory Distress Cardiovascular: Regular Rate, Rhythm No Edema No Gallop No JVD Normal Peripheral Pulses Systolic Murmur Capillary Refill: Less Than 3 Seconds Gastrointestinal: normal bowel sounds distended (slightly more than normal for pt) tenderness (diffusely) other (generally slightly firm abdomen) Extremity: Normal Capillary Refill Normal Inspection Normal Range of Motion Non Tender No Calf Tenderness Pedal Edema (Mild edema) Neurologic/Psychiatric: Alert Oriented x3 No Motor/Sensory Deficits Normal Mood/Affect Skin: Normal Color Warm/Dry Lymphatic: No Adenopathy Results Lab Laboratory Tests 06/29/16 13:54 06/30/16 03:50 07/01/16 03:55 Assessment/Plan Assessment/Plan Trauma - Same level Fall -- -trauma is following Rib fracture 8,9, and 10 with atelectasis -IS -increase activity Splenic Laceration with intraperitoneal blood s/p embolization per radiology -monitor Gastric distention -check KUB Bilateral carotid stenosis CHF EF 35% Anemia secondary to splenic lac - monitor H/H vertigo DM with neuropathy CAD Clinical Quality Measures DVT/VTE Risk/Contraindication: Risk Factor Score Per Nursin RFS Level Per Nursing on Admit: 3=High BINA TSAI DO Jul 01, 2016 06:11
[2016-07-01] MEDS ORDERED: SODIUM PHOSPHATE INJ 30 MM in NS (IVPB) 100 ML IV NR (06:30)
--- NOTE | 2016-07-01 08:19 | Diagnostic Imaging Report ---
Supine view of the abdomen. INDICATION: Abdominal distention. FINDINGS: There is marked gaseous distention of the stomach. There is mild nonspecific gaseous distention of small bowel loops. There is some air seen in the colon and in the rectum. Right hip prosthesis is seen. IMPRESSION: Gaseous distention mostly in the stomach and small bowel loops may relate to reactive ileus. Dictated by: Dictated on workstation # [id number]
[2016-07-01] MEDS: CLOPIDOGREL 75 MG (PLAVIX) TABLET PO SCH (08:46)
--- NOTE | 2016-07-01 08:50 | Diagnostic Imaging Report ---
INDICATION: Dyspnea. COMPARISON: June 30. FINDINGS: There is a questionable minimal lucency at the right apex which may reflect a 2 mm pleural separation and signify a minute apical pneumothorax, maybe 1%. Rib fractures bilaterally are noted. There is no convincing evidence for substantial pleural fluid. There is some vascular congestion, perihilar edema, and basilar atelectasis. IMPRESSION: Increased vascular caliber basilar atelectasis. No obvious pleural fluid. Questionable findings for a minute right apical pneumothorax. Dictated by: Dictated on workstation # [id number]
--- NOTE | 2016-07-01 10:06 | ECHOCARDIOGRAPHY REPORT ---
PROCEDURE PHYSICIAN: RODRI JOLLY DATE OF PROCEDURE: 06/30/2016 TWO DIMENSIONAL ECHOCARDIOGRAM REPORT PRIMARY PHYSICIAN: OTHER PHYSICIAN: REFERRING PHYSICIAN: Dr. Rodriguez, Dr. Garcia ORDERING PHYSICIAN: INDICATION FOR THE PROCEDURE: MEASUREMENTS DERIVED VALUES LV DIAMETER (LAX) NORMALS NORMALS Diastolic 5.6 (3.6-5.2) Eject. Fract. 50% (60%+/-6%) Systolic (2.3-3.9) Diastolic Vol. % Shortening (0.22-0.42) Systolic Vol. Aortic Root IVS THICKNESS Diastolic 1.2 (0.6-1.1) LVPW THICKNESS Diastolic 1.2 (0.6-1.1) LA DIAMETER Systolic 4.6 (2.1-3.7) FINDINGS: 1. Technically difficult study. 2. The left ventricle is normal in size with mild left ventricular hypertrophy. Endocardium was not well visualized in all segments. Hypokinesia is suspected in the mid to apical anterior wall. Systolic function is mildly reduced. Ejection fraction 50%. 3. The left atrium is dilated. No clot or thrombus were seen within the left atrium. 4. The right atrium and right ventricle were not well visualized. 5. Mitral valve is normal in morphology with mild mitral regurgitation noted by color Doppler flow. No mitral valve prolapse. No mitral valve stenosis. 6. Aortic valve was not visualized. There is no significant aortic stenosis or regurgitation was seen. 7. Tricuspid valve is normal in morphology with mild tricuspid regurgitation noted by color Doppler flow. Doppler across tricuspid valve estimated pulmonary artery pressure of 24+ right atrial pressure. 8. Pulmonic valve is functioning normally. 9. No pericardial effusion. CONCLUSION: 1. Technically difficult study. The patient had trauma with spleen laceration and abdominal distention. 2. Mild to moderate left ventricular hypertrophy. Endocardium was not well visualized in all segments. Questionable hypokinesia at the mid to apical anterior wall. Systolic function is mildly reduced. Estimated ejection fraction 50%. 3. Mildly dilated left atrium. 4. Mild mitral and tricuspid regurgitation. 5. Estimated pulmonary artery pressure of 30 mmHg. Job ID: [id number] Dictated Date: 07/01/2016 09:22:29 [address] Truck Driver Date: 07/01/2016 10:00:59 / abi
[2016-07-01] MEDS: AA 4.25% W/LYTES IN D5W IV SOL 1,000 ML IV SCH ×2 (11:00→22:23)
[2016-07-01] MEDS: LUBIPROSTONE 24 MCG CAP (AMITIZA) NON-FORMULARY PO SCH ×2 (11:24→21:13)
[2016-07-01] MEDS: morphine IMMEDIATE RELEASE 15 MG TABLET PO PRN (11:24)
--- NOTE | 2016-07-01 11:24 | Cardiology Progress Note ---
Subjective Subjective/Events-last exam Patient is asleep in bed. Easily awakens to answer questions. Denies any CP or dyspnea. Review of Systems General: No Night Sweats, No Fatigue, No Malaise HEENT: No Visual Changes, No Dysphasia, No Sore Throat Pulmonary: No Dyspnea, No Cough, No Pleuritic Chest Pain Cardiovascular: No: Chest Pain, Edema, Palpitations, Paroxysmal Noc. Dyspnea Gastrointestinal: No: Abdominal Pain, Constipation, Diarrhea, Nausea, Vomiting Genitourinary: No Dysuria, No Frequency Musculoskeletal: No: back pain, neck pain Neurological: : WeaknessNo: Change in speech, Confusion, Numbness Objective-Cardiology Exam Last Set of Vital Signs Vital Signs 07/01/16 07/01/16 07/01/16 07/01/16 06:00 07:00 07:51 09:27 Temp 99.9 Pulse 77 Resp 34 B/P 174/86 Pulse Ox 97 O2 Delivery Nasal Cannula O2 Flow Rate 2.00 Capillary Refill : Less Than 3 Seconds I&O Intake and Output 07/01/16 00:00 Intake Total 1220 ml Output Total 1890 ml Balance -670 ml Intake Oral 220 ml IV Total 1000 ml Output Urine Total 1750 ml Emesis 140 ml # Bowel Movements 1 # Emeses 1 General: Alert, Oriented X3, Cooperative HEENT: Atraumatic, PERRLA Neck: Supple, No JVD, No Thyromegaly Lungs: Clear to Auscultation, Normal Air Movement Heart: Regular Rate, Normal S1, Normal S2, No Murmurs Abdomen: Normal Bowel Sounds, Soft, No Tenderness, No Hepatosplenomegaly, No Masses Extremities: No Clubbing, No Cyanosis, No Edema, Normal Pulses, No Tenderness/ Swelling Skin: No Rashes, No Breakdown Neuro: Normal Gait, Normal Speech, Strength at 5/5 X4 Ext, Normal Tone, Sensation Intact Results Lab Laboratory Tests 07/01/16 03:55 A/P-Cardiology Admission Diagnosis Rib fracture Coronary artery disease Congestive heart failure, chronic compensated left ventricle systolic dysfunction, ischemic cardiomyopathy Hyperlipidemia Assessment/Plan Status post fall and rib fracture with liver laceration, status post embolization to the liver. Questionable cause for syncope could be hypotension versus arrhythmia. Autonomic dysfunction. Telemetry reveals SR with BBB, 2D Echo shows EF 50%. Continue to monitor. Coronary artery disease, multiple intervention the past, last procedure reported in 2011. Patient had a patent stent in the mid LAD, at 10 2.2512 mm, 70 percent stenosis in the proximal ramus intermedius artery which was not intervened on. 2D Echo done yesterday reveals mild LVH with EF 50%. Chronic dizziness and lightheadedness, no syncope was reported in the past. Mild bilateral carotid stenosis, ultrasound done yesterday reveals nonobstructive disease bilaterally. History of ischemic cardiomyopathy with diffuse left ventricular hypokinesia and ejection fraction 30-35 percent per last study in 2011, EF improved to 50% per 2D Echo done yesterday. 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 Hyperlipidemia Diabetes mellitus, followed and managed by primary care physician Peripheral neuropathy Gastroesophageal reflux disease Degenerative joint disease, neuropathy, chronic back pain Clinical Quality Measures DVT/VTE Risk/Contraindication: Risk Factor Score Per Nursin RFS Level Per Nursing on Admit: 3=High MERY MUNSON Jul 01, 2016 11:24
--- NOTE | 2016-07-01 11:32 | Progress Note ---
Subjective Subjective/Events-last exam Pt seen and examined. States he has some stomach pain. Partially controlled with meds. Pt has been incontinent of stool twice. Review of Systems General: No Chills, No Night Sweats Cardiovascular: No: Chest Pain, Palpitations Gastrointestinal: : Abdominal PainNo: Nausea, Vomiting Objective Exam Vital Signs Date Time Temp Pulse Resp B/P Pulse Ox O2 Delivery O2 Flow Rate FiO2 07/01/16 09:27 97 Nasal Cannula 2.00 07/01/16 09:26 81 Room Air 07/01/16 07:54 97 Room Air 07/01/16 07:51 99.9 Room Air 07/01/16 07:00 77 07/01/16 06:00 97 34 174/86 97 Nasal Cannula 2.00 07/01/16 05:00 96 33 157/83 97 Nasal Cannula 2.00 07/01/16 04:00 100.1 94 32 167/77 98 Nasal Cannula 2.00 07/01/16 04:00 98 Nasal Cannula 2.00 07/01/16 03:00 96 16 160/91 98 Nasal Cannula 2.00 07/01/16 02:00 97 18 133/88 99 Nasal Cannula 2.00 07/01/16 01:00 105 07/01/16 01:00 105 31 132/81 97 Nasal Cannula 2.00 07/01/16 00:00 100.6 93 17 138/80 98 Nasal Cannula 2.00 07/01/16 00:00 98 Nasal Cannula 2.00 06/30/16 23:00 109 32 159/76 97 Nasal Cannula 2.00 06/30/16 22:20 108 23 98 Nasal Cannula 2.00 06/30/16 22:00 100 28 147/99 92 Room Air 06/30/16 21:00 100 14 127/73 94 Room Air 06/30/16 20:00 100.3 95 10 120/80 96 Room Air 06/30/16 20:00 96 Room Air 2.00 06/30/16 19:00 94 26 133/72 95 Room Air 06/30/16 19:00 94 06/30/16 18:00 94 16 156/85 94 Room Air 06/30/16 17:00 98 18 143/81 92 Room Air 06/30/16 16:51 Nasal Cannula 2.00 06/30/16 16:00 97 7 149/80 95 Room Air 06/30/16 16:00 Nasal Cannula 2.00 06/30/16 15:49 100.9 06/30/16 15:00 100 29 149/76 Room Air 06/30/16 14:00 92 14 145/77 Room Air 06/30/16 13:00 97 7 159/93 93 Room Air 06/30/16 13:00 94 06/30/16 12:33 99.4 06/30/16 12:00 Room Air 06/30/16 12:00 91 10 174/91 99 Room Air I & O 07/01/16 07:00 Intake Total 2351 ml Output Total 2065 ml Balance 286 ml Capillary Refill : Less Than 3 Seconds General Appearance: WD/WN Moderate Distress HEENT: PERRL/EOMI Pharynx Normal Neck: Non Tender Supple Carotid Bruit Respiratory: Chest Non Tender Lungs Clear Normal Breath Sounds No Accessory Muscle Use No Respiratory Distress Cardiovascular: Regular Rate, Rhythm No Edema No Gallop No JVD Normal Peripheral Pulses Systolic Murmur Gastrointestinal: normal bowel sounds distended (slightly more than normal for pt) tenderness (diffusely) other (generally slightly firm abdomen) Extremity: Normal Capillary Refill Non Tender No Calf Tenderness Pedal Edema ( Mild edema) Neurologic/Psychiatric: Alert Skin: Normal Color Warm/Dry Lymphatic: No Adenopathy Results Lab Laboratory Tests 06/30/16 12:32: Glucometer 146H 06/30/16 18:10: Glucometer 173H 07/01/16 00:13: Glucometer 166H 07/01/16 03:55: Anion Gap 10, BUN/Creatinine Ratio 24, Band Neutrophils 0, Basophils # (Auto) 0.0, Basophils % (Manual) 0, Basophils (%) (Auto) 0, Blood Urea Nitrogen 20H, Calcium Level 8.2L, Carbon Dioxide Level 21, Chloride Level 108H, Creatinine 0.84, Eosinophils # (Auto) 0.0, Eosinophils % (Manual) 0, Eosinophils (%) (Auto ) 0, Estimat Glomerular Filtration Rate > 60, Glucose Level 155H, Hematocrit 26L , Hemoglobin 8.3L, Hypochromasia SLIGHT, Lymphocytes # (Auto) 0.9L, Lymphocytes % (Manual) 6, Lymphocytes (%) (Auto) 7L, Magnesium Level 1.8, Mean Corpuscular Hemoglobin 28, Mean Corpuscular Hemoglobin Concent 32, Mean Corpuscular Volume 87, Mean Platelet Volume 8.1, Monocytes # (Auto) 1.1H, Monocytes % (Manual) 7, Monocytes (%) (Auto) 8, Neutrophils # (Auto) 11.7H, Neutrophils % (Manual) 87, Neutrophils (%) (Auto) 85H, Phosphorus Level 1.6L, Platelet Count 249, Poikilocytosis SLIGHT, Potassium Level 3.5L, Red Blood Count 2.96L, Red Cell Distribution Width 13.3, Sodium Level 139, White Blood Count 13.6H 07/01/16 06:38: Glucometer 143H Assessment/Plan Assessment/Plan Assessment/Plan Trauma - Same level Fall . Rib fracture 8,9, and 10 Splenic Laceration with intraperitoneal blood Anemia secondary to splenic lac - monitor H/H, has been stable 8.3 today Dizzy spells - Carotid US showed 25-50% stenosis bilaterally, not sure if they are causing any symptoms Hypokalemia and Hypophosphatemia - being replaced Pt must get up and move around; PT/OT has been consulted. DM with neuropathy, CAD, Arthritis Max medical management; Appreciate Pulmonary and Hospitalist consult Clinical Quality Measures DVT/VTE Risk/Contraindication: Risk Factor Score Per Nursin RFS Level Per Nursing on Admit: 3=High DEJAH REBOLLAR DO Jul 01, 2016 11:32
--- NOTE | 2016-07-01 13:42 | Cardiology Progress Note ---
Subjective Subjective/Events-last exam patient is laying down in bed, still having abdominal distention and abdominal pain. No chest pain. Generalized weakness. Review of Systems General: No Chills, No Night Sweats, No Fatigue, No Malaise, No Appetite, No Other HEENT: No Head Aches, No Visual Changes, No Eye Pain, No Ear Pain, No Dysphasia , No Sinus Congestion, No Post Nasal Drip, No Sore Throat, No Other Pulmonary: No Dyspnea, No Cough, No Pleuritic Chest Pain, No Other Cardiovascular: No: Chest Pain, Edema, Lt Headedness, Orthopnea, Other, Palpitations, Paroxysmal Noc. Dyspnea Objective-Cardiology Exam Last Set of Vital Signs Vital Signs 07/01/16 07/01/16 06:00 13:00 Pulse 85 Resp 34 B/P 174/86 Capillary Refill : Less Than 3 Seconds I&O Intake and Output 07/01/16 00:00 Intake Total 1220 ml Output Total 1890 ml Balance -670 ml Intake Oral 220 ml IV Total 1000 ml Output Urine Total 1750 ml Emesis 140 ml # Bowel Movements 1 # Emeses 1 General: Alert, Oriented X3, Cooperative HEENT: Atraumatic, PERRLA Neck: Supple, No JVD, No Thyromegaly Lungs: Clear to Auscultation, Normal Air Movement Heart: Regular Rate, Normal S1, Normal S2, No Murmurs Abdomen: Normal Bowel Sounds, Soft, No Tenderness, No Hepatosplenomegaly, No Masses Extremities: No Clubbing, No Cyanosis, No Edema, Normal Pulses, No Tenderness/ Swelling Skin: No Rashes, No Breakdown Neuro: Normal Gait, Normal Speech, Strength at 5/5 X4 Ext, Normal Tone, Sensation Intact Results Lab Laboratory Tests 07/01/16 03:55 A/P-Cardiology Admission Diagnosis Rib fracture Coronary artery disease Congestive heart failure, chronic compensated left ventricle systolic dysfunction, ischemic cardiomyopathy Hyperlipidemia Assessment/Plan Status post fall and rib fracture with liver laceration, status post embolization to the liver. Questionable cause for syncope could be hypotension versus arrhythmia. Autonomic dysfunction. Telemetry reveals SR with BBB, 2D Echo shows EF 50%. Continue to monitor. Generalized weakness, unable to support himself. Starting on physical therapy. I doubt that he will be able to go home and live by himself beyond this point. Coronary artery disease, multiple intervention the past, last procedure reported in 2011. Patient had a patent stent in the mid LAD, at 10 2.2512 mm, 70 percent stenosis in the proximal ramus intermedius artery which was not intervened on. 2D Echo done yesterday reveals mild LVH with EF 50%. Chronic dizziness and lightheadedness, no syncope was reported in the past. Mild bilateral carotid stenosis, ultrasound done yesterday reveals nonobstructive disease bilaterally. History of ischemic cardiomyopathy with diffuse left ventricular hypokinesia and ejection fraction 30-35 percent per last study in 2011, EF improved to 50% per 2D Echo done yesterday. 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 Hyperlipidemia Diabetes mellitus, followed and managed by primary care physician Peripheral neuropathy Gastroesophageal reflux disease Degenerative joint disease, neuropathy, chronic back pain Clinical Quality Measures DVT/VTE Risk/Contraindication: Risk Factor Score Per Nursin RFS Level Per Nursing on Admit: 3=High RODRI JOLLY MD Jul 01, 2016 1:42 pm
--- NOTE | 2016-07-01 15:23 | Physical Therapy Progress Note ---
Therapy Progress Note Evaluation attempted but patient is ill. Patient is laying in bed with emesis basin in hand. He states he is on the verge of vomiting and would prefer to try physical therapy in the morning tomorrow. WOLFGANG MOTA PT Jul 01, 2016 15:23
--- NOTE | 2016-07-01 15:55 | Occ Therapy Progress Note ---
Therapy Progress Note Order received for OT eval and treat. Chart review completed. Attempted evaluation at 1545. Pt in bed with eyes closed. Pt refused therapy this afternoon secondary to fatigue and feeling ill. Pt agrees to participate tomorrow, states "I will start fresh tomorrow." Will attempt to complete . 1 visit DORENE PERRY OT Jul 01, 2016 15:55
[2016-07-01 22:40] LABS: BILIRUBIN,URINE NEGATIVE (NEGATIVE); KETONES,URINE NEGATIVE (NEGATIVE); LEUKOCYTE ESTERASE ,URINE NEGATIVE (NEGATIVE); NITRITE,URINE NEGATIVE (NEGATIVE); PH,URINE 6.5 (5-9); PROTEIN,URINE 1+ (NEGATIVE); UROBILINOGEN,URINE NORMAL (NORMAL)
[2016-07-01 23:06] LABS: WBC,URINE 0-2 /HPF
[2016-07-01 23:07] LABS: SQUAMOUS EPITHELIAL CELL,UR RARE /HPF
[2016-07-02] VITALS (13 sets, daily range): BP systolic 121–154; BP diastolic 61–97
[2016-07-02 03:57] LABS: BASOPHILS % (AUTO) 0 % (0-10); EOSINOPHILS % (AUTO) 0 % (0-10); LYMPHOCYTES % (AUTO) 9 % (12-44); MEAN CORPUSCULAR HEMOGLOBIN 28 PG (25-34); MEAN CORPUSCULAR HGB CONC 33 G/DL (32-36); MEAN CORPUSCULAR VOLUME 86 FL (80-99); MEAN PLATELET VOLUME 8.5 FL (7.4-10.4); MONOCYTES # (AUTO) 0.9 X 10^3 (0.0-1.0); MONOCYTES % (AUTO) 8 % (0-12); NEUTROPHILS # (AUTO) 9.5 X 10^3 (1.8-7.8); NEUTROPHILS % (AUTO) 83 % (42-75); PLATELET COUNT 250 10^3/uL (130-400); RED BLOOD COUNT 2.93 10^6/uL (4.35-5.85); RED CELL DISTRIBUTION WIDTH 13.4 % (10.0-14.5); WHITE BLOOD COUNT 11.5 10^3/uL (4.3-11.0)
[2016-07-02 04:13] LABS: ANION GAP 9 MMOL/L (5-14); BLOOD UREA NITROGEN 19 MG/DL (7-18); BUN/CREATININE RATIO 24; CALCIUM 8.3 MG/DL (8.5-10.1); CARBON DIOXIDE 22 MMOL/L (21-32); CHLORIDE 105 MMOL/L (98-107); GFR ESTIMATED > 60; GLUCOSE 150 MG/DL (70-105); MAGNESIUM 1.8 MG/DL (1.8-2.4); PHOSPHORUS 2.1 MG/DL (2.3-4.7); POTASSIUM 3.2 MMOL/L (3.6-5.0); SODIUM 136 MMOL/L (135-145)
[2016-07-02] MEDS: POTASSIUM CL 10MEQ/50ML IVPB 50 ML IV SCH ×6 (04:54→09:59)
[2016-07-02] MEDS: KCL 20 MEQ TAB (K-DUR) PO SCH (06:00)
[2016-07-02] MEDS: MAGNESIUM 1 GM/100 ML IVPB 100 ML IV SCH (06:00)
--- NOTE | 2016-07-02 06:26 | Pulmonary Progress Note ---
Subjective Subjective/Events-last exam Pt is doing better no complications noted. Exam Exam Vital Signs Date Time Temp Pulse Resp B/P Pulse Ox O2 Delivery O2 Flow Rate FiO2 07/02/16 06:00 94 14 129/97 99 Nasal Cannula 2.00 07/02/16 05:00 89 13 135/80 99 Nasal Cannula 2.00 07/02/16 04:00 Nasal Cannula 2.00 07/02/16 04:00 98.3 92 34 142/75 100 Nasal Cannula 2.00 07/02/16 03:00 83 16 148/80 98 Nasal Cannula 2.00 07/02/16 02:00 84 10 121/72 99 Nasal Cannula 2.00 07/02/16 01:00 87 07/02/16 01:00 87 33 132/64 96 Nasal Cannula 2.00 07/02/16 00:00 99.1 89 18 123/61 97 Nasal Cannula 2.00 07/02/16 00:00 97 Nasal Cannula 2.00 07/01/16 23:00 90 32 126/64 95 Nasal Cannula 2.00 07/01/16 22:00 87 19 136/92 99 Nasal Cannula 2.00 07/01/16 21:00 84 9 141/72 98 Nasal Cannula 2.00 07/01/16 20:00 97.3 82 8 140/67 96 Nasal Cannula 2.00 07/01/16 20:00 96 Nasal Cannula 2.00 07/01/16 19:00 89 14 142/78 95 Nasal Cannula 2.00 07/01/16 19:00 89 07/01/16 18:00 87 17 150/74 95 Nasal Cannula 2.00 07/01/16 17:00 90 31 156/82 96 Nasal Cannula 2.00 07/01/16 16:00 99.4 Nasal Cannula 2.00 07/01/16 16:00 97 Nasal Cannula 2.00 07/01/16 16:00 75 150/74 100 Nasal Cannula 2.00 07/01/16 15:00 84 17 153/80 98 Nasal Cannula 2.00 07/01/16 14:00 92 10 149/79 97 Nasal Cannula 2.00 07/01/16 13:00 92 6 149/84 98 Nasal Cannula 2.00 07/01/16 13:00 85 07/01/16 12:00 99.7 97 Nasal Cannula 2.00 07/01/16 12:00 97 Nasal Cannula 2.00 07/01/16 11:00 109 36 164/89 95 Nasal Cannula 2.00 07/01/16 10:00 108 40 173/88 96 Nasal Cannula 2.00 07/01/16 09:27 97 Nasal Cannula 2.00 07/01/16 09:26 81 Room Air 07/01/16 09:00 76 12 167/88 94 Room Air 07/01/16 08:00 100 36 159/84 94 Room Air 07/01/16 07:54 97 Room Air 07/01/16 07:51 99.9 Room Air 07/01/16 07:00 15 160/92 98 Nasal Cannula 2.00 07/01/16 07:00 77 I & O 07/02/16 07:00 Intake Total 2820 ml Output Total 1725 ml Balance 1095 ml General Appearance: No Apparent Distress WD/WN Chronically ill Obese HEENT: PERRL/EOMI Normal ENT Inspection Pharynx Normal Neck: Full Range of Motion Normal Inspection Non Tender Supple Carotid Bruit Respiratory: Chest Non Tender No Accessory Muscle Use No Respiratory Distress Crackles Decreased Breath Sounds Cardiovascular: No Edema No Gallop No JVD No Murmur Normal Peripheral Pulses Tachycardia Capillary Refill: Less Than 3 Seconds Gastrointestinal: normal bowel sounds distended (slightly more than normal for pt) tenderness (diffusely) other (generally slightly firm abdomen) Extremity: Normal Capillary Refill Normal Inspection Normal Range of Motion Non Tender No Calf Tenderness No Pedal Edema Neurologic/Psychiatric: Alert Oriented x3 (poor recall, searching for words unsure of baseline) No Motor/Sensory Deficits Normal Mood/Affect Skin: Normal Color Warm/Dry Lymphatic: No Adenopathy Results Lab Laboratory Tests 07/01/16 03:55 07/02/16 03:25 Assessment/Plan Assessment/Plan Trauma - Same level Fall -- -trauma is following Rib fracture 8,9, and 10 with atelectasis -IS -increase activity Splenic Laceration with intraperitoneal blood s/p embolization per radiology -monitor Gastric distention improving Bilateral carotid stenosis CHF EF 35% Anemia secondary to splenic lac - monitor H/H vertigo DM with neuropathy CAD To floor when ok with surgery. Clinical Quality Measures DVT/VTE Risk/Contraindication: Risk Factor Score Per Nursin RFS Level Per Nursing on Admit: 3=High BINA TSAI DO Jul 02, 2016 06:26
[2016-07-02] MEDS: inSUlin (REGULAR) HUMAN 1 UNIT/0.01 ML (CHARGE PER UNIT) SC SCH ×3 (06:27→18:00)
[2016-07-02] MEDS ORDERED: POTASSIUM CL 10MEQ/50ML IVPB 50 ML IV SCH (06:30)
--- NOTE | 2016-07-02 07:09 | Cardiology Progress Note ---
Subjective Subjective/Events-last exam Patient is laying down in bed, still having chest pain, had trauma to the chest with rib fracture. Expressed that he is ready to get out of bed today, willing to work with the physical therapist Review of Systems General: No Chills, No Night Sweats, No Fatigue, No Malaise, No Appetite, No Other HEENT: No Head Aches, No Visual Changes, No Eye Pain, No Ear Pain, No Dysphasia , No Sinus Congestion, No Post Nasal Drip, No Sore Throat, No Other Pulmonary: DyspneaNo Cough, No Pleuritic Chest Pain, No Other Cardiovascular: : Chest PainNo: Edema, Lt Headedness, Orthopnea, Other, Palpitations, Paroxysmal Noc. Dyspnea Objective-Cardiology Exam Last Set of Vital Signs Vital Signs 07/02/16 07/02/16 04:00 06:00 Temp 98.3 Pulse 94 Resp 14 B/P 129/97 Pulse Ox 99 O2 Delivery Nasal Cannula O2 Flow Rate 2.00 Capillary Refill : Less Than 3 Seconds I&O Intake and Output 07/01/16 23:59 Intake Total 3856 ml Output Total 1900 ml Balance 1956 ml Intake Oral 690 ml IV Total 3166 ml Output Urine Total 1900 ml # Bowel Movements 10 General: Alert, Oriented X3, Cooperative HEENT: Atraumatic, PERRLA Neck: Supple, No JVD, No Thyromegaly Lungs: Clear to Auscultation, Normal Air Movement Heart: Regular Rate, Normal S1, Normal S2, No Murmurs Abdomen: Normal Bowel Sounds, Soft, No Tenderness, No Hepatosplenomegaly, No Masses Extremities: No Clubbing, No Cyanosis, No Edema, Normal Pulses, No Tenderness/ Swelling Skin: No Rashes, No Breakdown Neuro: Normal Gait, Normal Speech, Strength at 5/5 X4 Ext, Normal Tone, Sensation Intact Results Lab Laboratory Tests 07/02/16 03:25 A/P-Cardiology Admission Diagnosis Rib fracture Coronary artery disease Congestive heart failure, chronic compensated left ventricle systolic dysfunction, ischemic cardiomyopathy Hyperlipidemia Assessment/Plan Status post fall and rib fracture with liver laceration, status post embolization to the spleen. Questionable cause for syncope could be hypotension versus arrhythmia, Autonomic dysfunction. Telemetry reveals SR with BBB, 2D Echo shows EF 50%. Continue on current medication monitor, no changes are recommended at this time. Generalized weakness, unable to support himself. Starting on physical therapy. I doubt that he will be able to go home and live by himself beyond this point. Possible acute rehabilitation Coronary artery disease, multiple intervention the past, last procedure reported in 2011. Patient had a patent stent in the mid LAD, at 10 2.2512 mm, 70 percent stenosis in the proximal ramus intermedius artery which was not intervened on. 2D Echo done yesterday reveals mild LVH with EF 50%. Continue to monitor Mild bilateral carotid stenosis, ultrasound done yesterday reveals nonobstructive disease bilaterally. Continue to monitor History of ischemic cardiomyopathy with diffuse left ventricular hypokinesia and ejection fraction 30-35 percent per last study in 2011, EF improved to 50%, quality of the echo was fairly limited, endocardium was not well visualized, I will evaluate MUGA scan prior to discharge. 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 Hyperlipidemia Diabetes mellitus, followed and managed by primary care physician Peripheral neuropathy Gastroesophageal reflux disease Degenerative joint disease, neuropathy, chronic back pain Clinical Quality Measures DVT/VTE Risk/Contraindication: Risk Factor Score Per Nursin RFS Level Per Nursing on Admit: 3=High RODRI JOLLY MD Jul 02, 2016 07:08
--- NOTE | 2016-07-02 08:49 | Physical Therapy Evaluation ---
PT Evaluation-General Medical Diagnosis Admission Date Jun 29, 2016 at 10:50 Medical Diagnosis: splenic laceration/rib fractures Onset Date: Jun 29, 2016 Therapy Diagnosis Therapy Diagnosis: general weakness/debility Height/Weight Height (Feet): 6 Height (Inches): 0.00 Weight (Pounds): 225 Weight (Ounces): 4.8 Precautions Precautions/Isolations: Fall Prevention, Standard Precautions Referral Physician: Margie Reason for Referral: Evaluation/Treatment Medical History Pertinent Medical History: Arthritis, CAD, DM, HTN, RI, Neuropathy, PVD Additional Medical History excessive alcohol use/smoker Current History s/p fall landing in the bathtub resulting in left rib fractures (8-10) and splenic laceration Reviewed History: Yes Social History Home: Apartment Current Living Status: Alone Entry Into Home: Level Entry Prior/Core FIM Prior Level of Function Functional [place] Measure 0=Not Assessed/NA 4=Minimal Assistance 1=Total Assistance 5=Supervision or Setup 2=Maximal Assistance 6=Modified [place] 3=Moderate Assistance 7=Complete [place] Bed Mobility: 7 Transfers (B,C,W/C) (FIM): 7 Gait: 7 Locomotion: 7 PT Evaluation-Current Subjective Patient reluctantly agrees to PT. Patient states, "I feel like hell." Pain Numeric Pain Scale: 8 Location: Left Location Body Site: Side Pain Description: Acute Comment: RN notified of patient pain level Objective Patient Orientation: Normal For Age Problem Solving: Fair Attachments: Oxygen, IV ROM/Strength ROM Lower Extremities bilateral LE WFL Strenght Lower Extremities bilateral LE WFL Integumentary/Posture Integumentary refer to nursing notes Bowel Incontinence: No Bladder Incontinence: No Posture slight flexed hip posture due to left rib discomfort Neuromuscular (Tone, Coordination, Reflexes) slightly diminished coordination due to inactivity x 4 days Sensory Vision: Wears Glasses Hearing: Functional Sensation Right Lower Extremit: Impaired Sensation Left Lower Extremity: Impaired Sensation Lower Extremities neuropathy Transfers Functional [place] Measure 0=Not Assessed/NA 4=Minimal Assistance 1=Total Assistance 5=Supervision or Setup 2=Maximal Assistance 6=Modified [place] 3=Moderate Assistance 7=Complete [place] Transfers (B, C, W/C) (FIM): 3 Scootin Rollin Supine to/from Sit: 3 Sit to/from Stand: 5 assist due to left side pain Gait Mode of Locomotion: Walk Anticipated Mode of Locomotion: Walk Gait (FIM): 4 Distance (FIM): 3=150 ft Distance: 150' Gait Level of Assist: 4 Gait Persons Needed: 1 Gait Assistive Device: FWW Comments/Gait Description slight LOB initially with improved gait sequence with distance; safe and functional Balance Sitting Static: Normal Sitting Dynamic: Normal Standing Static: Good Standing Dynamic: Good Assessment/Needs 75 y.o. male, will benefit from short term skilled PT to address functional strength and mobility to improve current LOF and to safely return to home at independent PLOF. Rehab Potential: Poor (per Dr. Hanson ) Post Rehab Potential-Barriers: comorbidities PT Email Marketing Assistant Goals Intermediate Goals PT Intermediate Goals Time Frame: Jul 09, 2016 Transfers (B,C,W/C) (FIM): 7 Gait (FIM): 7 Gait distance (FIM): 3=150 ft Distance: 250' Gait Level of Assist: 7 Gait Assistive Device: None, FWW PT Plan Problem List Problem List: Activity Tolerance, Functional Strength Treatment/Plan Treatment Plan: Continue Plan of Care Treatment Plan: Bed Mobility, Education, Functional Activity Aris, Functional Strength, Gait, Safety, Therapeutic Exercise, Transfers Treatment Duration: Jul 09, 2016 # of days/week 5-6 Visits Per Week: 5-6 Pt/Family Agrees w/Plan: Yes Safety Risks/Education Patient Education: Safety Issues Teaching Recipient: Patient Teaching Methods: Discussion Response to Teaching: Verbalize Understanding Discharge Recommendations Therapy D/C Recommendations: Home Independently Time/GCodes Time In: 810 Time Out: 835 Total Billed Treatment Time: 25 Total Billed Treatment 1 visit EVM 15 min FA 10 min G Codes Necessary: SHLOMO Farrell PT Jul 02, 2016 08:49
[2016-07-02] MEDS: morphine IMMEDIATE RELEASE 15 MG TABLET PO PRN ×2 (08:54→22:23)
[2016-07-02] MEDS: LUBIPROSTONE 24 MCG CAP (AMITIZA) NON-FORMULARY PO SCH ×2 (08:54→21:00)
[2016-07-02] MEDS: ONDANSETRON 4 MG/2 ML (SDV) Z0FRAN IVP PRN (08:54)
[2016-07-02] MEDS: CLOPIDOGREL 75 MG (PLAVIX) TABLET PO SCH (08:54)
--- NOTE | 2016-07-02 11:15 | Progress Note-Hospitalist ---
Progress Note HPI/CC on Admission CC: Confusion after fall with splenic injury HPI: This is a 75[address]WM pt of Dr. Khan that presented to ED via EMS after fall and workup revealed splenic laceration on CT and rib fractures 8-10. He underwent an uncomplicated embolization per interventional radiology and Dr. Alcantara and Dr. Holder have been consulted for pulmonary contusion and CHF respectively. photographer news: Pt was incontinent of stool today twice Pt has not been ambulating yet RN states that pt has not been eating much Pt has SCDs Pt has not received any pain meds K+ and PO4 are being replaced. Patient Interview: Pt confirms that PCP is Dr. Tomas in [place]. Pt lives in [place] by himself. Pt states that family members from [place] occasionally check on him. Physical exam was stable. Pt denies smoking and drinking excessive ETOH. 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 Pt states that he used to see Dr. Holder for Cardiology but no longer does on a regular basis. Pt states that he checks his blood sugar almost every day at home. Pt uses [facility] and [facility] for pharmacy needs. Dr. Pearl informs pt that he will receive nutrition through IV and begin to work with PT. Pt states that he normally takes morphine prescribed by Dr. Guadalupe but he has not received it this month. Scribed by Arpan Fitzgerald under the direct supervision of Dr. Pearl. Progress Notes/Assess & Plan Date Seen 07/02/16 Admission Dx/Process Assessment: Fall with splenic laceration s/p embolization Cognitive deficit with live and care takers CHF EF of 35% Rib fractures 8-10 with ATX Anemia due to splenic laceration DM CAD Leukocytosis Hypokalemia HTN Low grade fever Weakness Diagonsis/Assessment & Plan Chart Review: BP 154/95 Max fever 100.6 WBC 11.5 Hgb 8.2 K+ 3.2 w/ supplement Albumin poor at 2.1 Sugars 160s photographer news: Pt had a loose BM this morning but it did not smell like C. Diff. Dr. Alcantara stated that he is ok with move to floor if approved by Dr. Garcia. Dr. Garcia has not seen pt yet today. MUGA scan scheduled for 1pm. Pt has been ambulating this morning. RN states that swingbed is likely. RN has not spoken to family regarding baseline. Patient Interview: Pt states that he remembers Dr. Pearl from yesterday. Pt states that he still feels somewhat weak and sore. Dr. Pearl informs pt that he will receive MUGA scan. Pt confirms that he has been ambulating. Pt states that he normally does not use a walker at home. Dr. Pearl discusses rehab option with pt. Pt is not decisive at this time but is open to the option. Pt states that he has spoken to PCP and will have a follow-up after DC. Physical exam was stable. Low grade fever noted, O x 3 delayed affect RRR, decreased BS all tyler No edema Laboratory Tests 07/02/16 03:25 Assessment: Fall with splenic laceration s/p embolization Cognitive deficit with live-in care takers CHF EF of 35% Rib fractures 8-10 with ATX Anemia due to splenic laceration DM CAD Leukocytosis Hypokalemia HTN Low grade fever Weakness Plan: Rehab eval Swingbed eval MUGA scan at 1pm to evaluate for spleen bleeding Prognosis poor Scribed by Arpan Fitzgerald under the direct supervision of Dr. Pearl. CATHIE PEARL DO Jul 02, 2016 11:14
--- NOTE | 2016-07-02 11:28 | Diagnostic Imaging Report ---
Posterior upright radiograph of the chest. INDICATION: Dyspnea. COMPARISON: 07/01/2016. FINDINGS: There is increased opacity in the left lung base compatible with atelectasis or infiltrate. Mild right basilar atelectasis is also seen. The heart size is enlarged. There is minimal vascular congestion suggested. Small left pleural effusion is suggested. No pneumothorax is seen. IMPRESSION: Slightly increased left basilar infiltrate or atelectasis. Cardiomegaly with minimal vascular congestion. Dictated by: Dictated on workstation # [id number]
--- NOTE | 2016-07-02 11:59 | Occupational Therapy Eval ---
OT Evaluation-General/PLF Medical Diagnosis Admission Date Jun 29, 2016 at 10:50 Medical Diagnosis: splenic laceration/rib fractures Onset Date: Jun 29, 2016 Therapy Diagnosis Therapy Diagnosis: decreased self care, weakness, decreased activity tolerance Height/Weight Height (Feet): 6 Height (Inches): 0.00 Weight (Pounds): 225 Weight (Ounces): 4.8 Precautions Precautions/Isolations: Fall Prevention, Standard Precautions Safety Interventions: Bed Exit Alarm, Reorient-PRN Referral Physician: Margie Referral Reason: Evaluation/Treatment Medical History Pertinent Medical History: Arthritis, CAD, DM, HTN, [place], Neuropathy, PVD Additional Medical History Hx coronary stent, chronic UTI, depression, bilat carotid stenosis Current History Fell at home in bathroom, fx several ribs. Syncope Reviewed History: Yes Social History Home: Apartment ([facility]) Current Living Status: Alone Entry Into Home: Level Entry ADL-Prior Level of Function ADL PLOF Comments Pt reported that he has been able to manage his basic self care needs, do light cooking and housework, laundry. He said his daughter comes over every now and then to help around his apartment. He still drives. he seemed most concerned abotu getting morphine for chronic back and leg pain. Pt was on IRF about 6 years ago for hip fx DME/Equipment Comments Pt reports no adapted equipment in bathroom Occupation: retired truck mechanic apprentice Drive Self: Yes OT Current Status Subjective Pt seen in room, up in chair finishing lunch, agreeable to OT. Pt reported pain 0/10 but demonstrated some discomfort in back when asked to sit up tall away from the back of the chair. Appearance Alert, but difficulty staying awake Mental Status/Objective Patient Orientation: Person, Place Attachments: IV (2), Oxygen, Telemetry Current Glasses/Contacts: Yes Hand Dominance: Right Upper Extremity ROM Grossly WFL bilat Upper Extremity Strength Grossly 4/5 bilat ADL-Treatment ADL-Current Pt was unable or unwilling to lean forward to take slipper socks off. He said that he normally has trouble with socks and is interested in finding out about devices to help with dressing. He was feeding himself and observed getting a drink from a glass Functional [place] Measure 0=Not Assessed/NA 4=Minimal Assistance 1=Total Assistance 5=Supervision or Setup 2=Maximal Assistance 6=Modified [place] 3=Moderate Assistance 7=Complete IndependenceIRFPAI Quality Coding Scale 6 Independent with activity with or without an assistive device 5 Patient requires set up or clean up by helper. Patient completes activity by themselves 4 Supervision or touching assist (CGA). [place] provide cues , steadying assist 3 The helper provides less than half the effort to complete the activity 2 The helper provides more than half the effort to complete the activity 1 Dependent. The helper does all the effort to complete an activity 7 Patient refused to complete or attempt activity 9 The patient did not perform the activity before the current illness or injury 88 Not attempted due to Medical conditions or safety concerns Education OT Patient Education: Purpose of tx/functional activities, Rehab process Teaching Recipient: Patient Teaching Methods: Discussion Response to Teaching: Verbalize Understanding OT Short Term Goals Short Term Goals 1=Demonstrate adherence to instructed precautions during ADL tasks. 2=Patient will verbalize/demonstrate understanding of assistive devices/ modifications for ADL. 3=Patient will improve strength/tolerance for activity to enable patient to perform ADL's. OT Prison Goals Crusher [employer] [place] Goals Time Frame: 2 weeks Grooming(FIM): 6 Bathing(FIM): 5 Upper Body Dressing(FIM): 5 Lower Body Dressing(FIM): 5 Toileting(FIM): 6 Toilet/Commode Transfer(FIM): 6 Shower Transfer(FIM): 5 Additional Goals: 2-Verbalize Understanding, 3-ImproveStrength/Aris 1=Demonstrate adherence to instructed precautions during ADL tasks. 2=Patient will verbalize/demonstrate understanding of assistive devices/ modifications for ADL. 3=Patient will improve strength/tolerance for activity to enable patient to perform ADL's. OT Education/Plan Problem List/Assessment Assessment: Decreased Activ Tolerance, Decreased UE Strength, Dependent Transfers, Impaired Funct Balance, Impaired Self-Care Skills Pt would benefit from skilled OT to increase his independence in basic self care to allow him to safely return to his home after hospitalization, rib fx, chronic back and leg pain Discharge Recommendations Plan/Recommendations: Continue POC Barriers to Progress comorbidities Treatment Plan/Plan of Care Treatment,Training & Education: Yes Patient would benefit from OT for education, treatment and training to promote independence in ADL's, mobility, safety and/or upper extremity function for ADL' s. Plan of Care: ADL Retraining, Functional Mobility, UE Funct Exercise/Act, UE Neuromus Re-Ed/Coord Treatment Duration: Jul 16, 2016 # of days/week 5 Visits Per Week: 5 Agreement: Yes Rehab Potential: Fair (per Dr. Hanson ) Time/GCodes Start Time: 11:30 Stop Time: 11:50 Total Time Billed (hr/min): 20 Billed Treatment Time visit, eval medium complexity 20 minutes NICO CHIRINOS OT Jul 02, 2016 11:59
[2016-07-02] MEDS: AA 4.25% W/LYTES IN D5W IV SOL 1,000 ML IV SCH (12:00)
[2016-07-02] MEDS ORDERED: HEParin (CENTRAL IV FLUSH) 500 UNIT/5 ML SYR ONE (12:15)
--- NOTE | 2016-07-02 12:26 | Progress Note ---
Subjective Subjective/Events-last exam Pt seen and examined. Denies pain, states he is trying to eat. He is sitting up in chair. It is still hard to get him to answer questions. Review of Systems General: No Chills, No Night Sweats Pulmonary: No Dyspnea, No Cough Cardiovascular: No: Chest Pain, Palpitations Gastrointestinal: No: Abdominal Pain, Nausea, Vomiting Objective Exam Vital Signs Date Time Temp Pulse Resp B/P Pulse Ox O2 Delivery O2 Flow Rate FiO2 07/02/16 09:00 97 14 154/95 93 Nasal Cannula 2.00 07/02/16 08:30 98.3 07/02/16 08:00 93 Nasal Cannula 2.00 07/02/16 08:00 87 16 147/71 97 Nasal Cannula 2.00 07/02/16 07:00 86 07/02/16 07:00 86 13 146/79 98 Nasal Cannula 2.00 07/02/16 06:00 94 14 129/97 99 Nasal Cannula 2.00 07/02/16 05:00 89 13 135/80 99 Nasal Cannula 2.00 07/02/16 04:00 Nasal Cannula 2.00 07/02/16 04:00 98.3 92 34 142/75 100 Nasal Cannula 2.00 07/02/16 03:00 83 16 148/80 98 Nasal Cannula 2.00 07/02/16 02:00 84 10 121/72 99 Nasal Cannula 2.00 07/02/16 01:00 87 07/02/16 01:00 87 33 132/64 96 Nasal Cannula 2.00 07/02/16 00:00 99.1 89 18 123/61 97 Nasal Cannula 2.00 07/02/16 00:00 97 Nasal Cannula 2.00 07/01/16 23:00 90 32 126/64 95 Nasal Cannula 2.00 07/01/16 22:00 87 19 136/92 99 Nasal Cannula 2.00 07/01/16 21:00 84 9 141/72 98 Nasal Cannula 2.00 07/01/16 20:00 97.3 82 8 140/67 96 Nasal Cannula 2.00 07/01/16 20:00 96 Nasal Cannula 2.00 07/01/16 19:00 89 14 142/78 95 Nasal Cannula 2.00 07/01/16 19:00 89 07/01/16 18:00 87 17 150/74 95 Nasal Cannula 2.00 07/01/16 17:00 90 31 156/82 96 Nasal Cannula 2.00 07/01/16 16:00 99.4 Nasal Cannula 2.00 07/01/16 16:00 97 Nasal Cannula 2.00 07/01/16 16:00 75 150/74 100 Nasal Cannula 2.00 07/01/16 15:00 84 17 153/80 98 Nasal Cannula 2.00 07/01/16 14:00 92 10 149/79 97 Nasal Cannula 2.00 07/01/16 13:00 92 6 149/84 98 Nasal Cannula 2.00 07/01/16 13:00 85 I & O 07/02/16 07:00 Intake Total 2995 ml Output Total 2625 ml Balance 370 ml Capillary Refill : Less Than 3 Seconds General Appearance: No Apparent Distress WD/WN Chronically ill Obese HEENT: PERRL/EOMI Normal ENT Inspection Pharynx Normal Neck: Full Range of Motion Normal Inspection Non Tender Supple Carotid Bruit Respiratory: Chest Non Tender No Accessory Muscle Use No Respiratory Distress Crackles Decreased Breath Sounds Cardiovascular: No Edema No Gallop No JVD No Murmur Normal Peripheral Pulses Tachycardia Gastrointestinal: normal bowel sounds distended (slightly more than normal for pt) tenderness (diffusely but mild, much less than yesterday) other ( generally slightly firm abdomen) Extremity: Normal Capillary Refill Normal Inspection Normal Range of Motion Non Tender No Calf Tenderness No Pedal Edema Neurologic/Psychiatric: Alert Oriented x3 (poor recall, searching for words unsure of baseline) No Motor/Sensory Deficits Normal Mood/Affect Skin: Normal Color Warm/Dry Lymphatic: No Adenopathy Results Lab Laboratory Tests 07/01/16 18:49: Glucometer 157H 07/01/16 22:15: Glucometer 166H 07/01/16 22:30: Urine Bacteria NONE, Urine Bilirubin NEGATIVE, Urine Casts NONE, Urine Clarity CLEAR, Urine Color YELLOW, Urine Crystals NONE, Urine Culture Indicated NO, Urine Glucose (UA) 4+H, Urine Ketones NEGATIVE, Urine Leukocyte Esterase NEGATIVE, Urine Mucus NEGATIVE, Urine Nitrite NEGATIVE, Urine Protein 1+H, Urine RBC 0-2, Urine RBC (Auto) 1+H, Urine Specific [place] 1.015L, Urine Squamous Epithelial Cells RARE, Urine Urobilinogen NORMAL, Urine WBC 0-2, Urine pH 6.5 07/02/16 03:25: Anion Gap 9, BUN/Creatinine Ratio 24, Basophils # (Auto) 0.0, Basophils (%) ( Auto) 0, Blood Urea Nitrogen 19H, Calcium Level 8.3L, Carbon Dioxide Level 22, Chloride Level 105, Creatinine 0.80, Eosinophils # (Auto) 0.0, Eosinophils (%) ( Auto) 0, Estimat Glomerular Filtration Rate > 60, Glucose Level 150H, Hematocrit 25L, Hemoglobin 8.2L, Lymphocytes # (Auto) 1.0, Lymphocytes (%) (Auto ) 9L, Magnesium Level 1.8, Mean Corpuscular Hemoglobin 28, Mean Corpuscular Hemoglobin Concent 33, Mean Corpuscular Volume 86, Mean Platelet Volume 8.5, Monocytes # (Auto) 0.9, Monocytes (%) (Auto) 8, Neutrophils # (Auto) 9.5H, Neutrophils (%) (Auto) 83H, Phosphorus Level 2.1L, Platelet Count 250, Potassium Level 3.2L, Red Blood Count 2.93L, Red Cell Distribution Width 13.4, Smear Scan YES, Sodium Level 136, White Blood Count 11.5H 07/02/16 06:21: Glucometer 162H Assessment/Plan Assessment/Plan Assessment/Plan Trauma - Same level Fall . Rib fracture 8,9, and 10 Splenic Laceration with intraperitoneal blood H/H has been stable recommend stopping daily CBC Dizzy spells - Carotid US showed 25-50% stenosis bilaterally, not sure if they are causing any symptoms Hypokalemia and Hypophosphatemia - being replaced Pt must get up and move around; PT/OT has been consulted. DM with neuropathy, CAD, Arthritis Max medical management; Appreciate Pulmonary and Hospitalist consult Pt probably will be ok to be discharged in next day or so, but would not send him home. He needs SNF or swing bed or rehab, but not home alone. Clinical Quality Measures DVT/VTE Risk/Contraindication: Risk Factor Score Per Nursin RFS Level Per Nursing on Admit: 3=High DEJAH REBOLLAR DO Jul 02, 2016 12:25
--- NOTE | 2016-07-02 17:21 | Diagnostic Imaging Report ---
PROCEDURE: CT head without contrast. TECHNIQUE: Multiple contiguous axial images were obtained through the brain without the use of intravenous contrast. INDICATION: Decreased level of consciousness. FINDINGS: There is no mass, shift of the midline, or hemorrhage to suggest an acute intracranial abnormality. The ventricles are not abnormally dilated and similar in size to the prior exam of 02/23/2010. The senescent changes seen on the previous study are again evident and do not appear to have progressed. The bone windows show no evidence for a skull fracture or for a destructive lesion. The orbits are symmetric and within normal limits. The sinuses are not visualized in their entirety; where visualized, there is no acute abnormality. IMPRESSION: 1. There is no evidence for an acute intracranial abnormality. 2. If clinical concern regarding an underlying abnormality persists, then MRI will be recommended for further study. Dictated by: Dictated on workstation # [id number]
[2016-07-03] VITALS: BP 156/72
[2016-07-03] MEDS: AA 4.25% W/LYTES IN D5W IV SOL 1,000 ML IV SCH (00:16)
[2016-07-03] MEDS: inSUlin (REGULAR) HUMAN 1 UNIT/0.01 ML (CHARGE PER UNIT) SC SCH ×2 (00:17→05:39)
[2016-07-03 04:00] VITALS: BP 129/77
[2016-07-03 05:06] LABS: BASOPHILS % (AUTO) 0 % (0-10); EOSINOPHILS # (AUTO) 0.1 10^3/uL (0.0-0.3); EOSINOPHILS % (AUTO) 2 % (0-10); LYMPHOCYTES # (AUTO) 1.1 X 10^3 (1.0-4.0); LYMPHOCYTES % (AUTO) 13 % (12-44); MEAN CORPUSCULAR HEMOGLOBIN 28 PG (25-34); MEAN CORPUSCULAR HGB CONC 33 G/DL (32-36); MEAN CORPUSCULAR VOLUME 85 FL (80-99); MEAN PLATELET VOLUME 8.6 FL (7.4-10.4); MONOCYTES # (AUTO) 0.7 X 10^3 (0.0-1.0); MONOCYTES % (AUTO) 9 % (0-12); NEUTROPHILS # (AUTO) 6.2 X 10^3 (1.8-7.8); NEUTROPHILS % (AUTO) 76 % (42-75); PLATELET COUNT 267 10^3/uL (130-400); RED BLOOD COUNT 2.81 10^6/uL (4.35-5.85); RED CELL DISTRIBUTION WIDTH 13.3 % (10.0-14.5); WHITE BLOOD COUNT 8.2 10^3/uL (4.3-11.0)
[2016-07-03 05:32] LABS: ANION GAP 9 MMOL/L (5-14); BLOOD UREA NITROGEN 19 MG/DL (7-18); BUN/CREATININE RATIO 27; CALCIUM 8.2 MG/DL (8.5-10.1); CARBON DIOXIDE 20 MMOL/L (21-32); CHLORIDE 105 MMOL/L (98-107); CREATININE SERUM 0.71 MG/DL (0.60-1.30); GFR ESTIMATED > 60; GLUCOSE 128 MG/DL (70-105); MAGNESIUM 1.9 MG/DL (1.8-2.4); PHOSPHORUS 2.2 MG/DL (2.3-4.7); POTASSIUM 3.2 MMOL/L (3.6-5.0); SODIUM 134 MMOL/L (135-145)
[2016-07-03] MEDS: morphine IMMEDIATE RELEASE 15 MG TABLET PO PRN (05:41)
[2016-07-03 06:00] VITALS: BP 129/77
[2016-07-03] MEDS: fentaNYL INJECTION 100 MCG/2 ML AMP IV PRN (07:53)
[2016-07-03] MEDS: LUBIPROSTONE 24 MCG CAP (AMITIZA) NON-FORMULARY PO SCH (07:54)
[2016-07-03] MEDS: CLOPIDOGREL 75 MG (PLAVIX) TABLET PO SCH (07:54)
[2016-07-03 08:00] VITALS: BP 131/77
--- NOTE | 2016-07-03 08:06 | Pulmonary Progress Note ---
Subjective Subjective/Events-last exam PT feels improved no complications noted. Exam Exam Vital Signs Date Time Temp Pulse Resp B/P Pulse Ox O2 Delivery O2 Flow Rate FiO2 07/03/16 06:00 99.0 82 18 129/77 96 Nasal Cannula 2.00 07/03/16 05:30 95 Nasal Cannula 2.00 07/03/16 04:00 99.0 82 18 129/77 96 Nasal Cannula 2.00 07/03/16 00:00 99.1 86 18 156/72 95 Nasal Cannula 2.00 07/02/16 21:10 Nasal Cannula 2.00 07/02/16 20:35 Nasal Cannula 2.00 07/02/16 19:55 98.3 92 20 127/75 96 Nasal Cannula 2.00 07/02/16 16:05 98.1 90 26 121/66 96 Nasal Cannula 2.00 07/02/16 14:44 98.2 89 20 149/82 93 Nasal Cannula 2.00 07/02/16 12:30 98.2 07/02/16 09:00 97 14 154/95 93 Nasal Cannula 2.00 07/02/16 08:30 98.3 I & O 07/03/16 07:00 Intake Total 3690 ml Output Total 1725 ml Balance 1965 ml General Appearance: No Apparent Distress WD/WN Chronically ill Obese HEENT: PERRL/EOMI Normal ENT Inspection Pharynx Normal Neck: Full Range of Motion Normal Inspection Non Tender Supple Carotid Bruit Respiratory: Chest Non Tender No Accessory Muscle Use No Respiratory Distress Crackles Decreased Breath Sounds Cardiovascular: No Edema No Gallop No JVD No Murmur Normal Peripheral Pulses Tachycardia Capillary Refill: Less Than 3 Seconds Gastrointestinal: normal bowel sounds distended (slightly more than normal for pt) tenderness (diffusely but mild, much less than yesterday) other ( generally slightly firm abdomen) Extremity: Normal Capillary Refill Normal Inspection Normal Range of Motion Non Tender No Calf Tenderness No Pedal Edema Neurologic/Psychiatric: Alert Oriented x3 (poor recall, searching for words unsure of baseline) No Motor/Sensory Deficits Normal Mood/Affect Skin: Normal Color Warm/Dry Lymphatic: No Adenopathy Results Lab Laboratory Tests 07/02/16 03:25 07/03/16 04:30 Assessment/Plan Assessment/Plan Trauma - Same level Fall -- -trauma is following Rib fracture 8,9, and 10 with atelectasis -IS -increase activity Splenic Laceration with intraperitoneal blood s/p embolization per radiology -monitor Gastric distention improving Bilateral carotid stenosis CHF EF 35% Anemia secondary to splenic lac - monitor H/H vertigo DM with neuropathy CAD Clinical Quality Measures DVT/VTE Risk/Contraindication: Risk Factor Score Per Nursin RFS Level Per Nursing on Admit: 3=High BINA TSAI DO Jul 03, 2016 08:06
--- NOTE | 2016-07-03 08:58 | Physical Therapy Daily Note ---
PT Daily Note-Current Subjective Pt says "It's bad" when asked to rate pain level. Pt rates pain 8/10 located in "this whole L side". Pt agreeable to therapy at this time. Transfers Functional [place] Measure 0=Not Assessed/NA 4=Minimal Assistance 1=Total Assistance 5=Supervision or Setup 2=Maximal Assistance 6=Modified [place] 3=Moderate Assistance 7=Complete IndependenceIRFPAI Quality Coding Scale 6 Independent with activity with or without an assistive device 5 Patient requires set up or clean up by helper. Patient completes activity by themselves 4 Supervision or touching assist (CGA). [place] provide cues , steadying assist 3 The helper provides less than half the effort to complete the activity 2 The helper provides more than half the effort to complete the activity 1 Dependent. The helper does all the effort to complete an activity 7 Patient refused to complete or attempt activity 9 The patient did not perform the activity before the current illness or injury 88 Not attempted due to Medical conditions or safety concerns Transfers slow and guarded due to pain. Pt able to stand mod (I) level from chair. Gait Training Gait Assistive Device: FWW Pt amb with FWW and SBA x 400ft at slow speed. Treatments Pt seen for gait training in [facility]. Pt amb with FWW, O2 at 2L/min and f/u of IV pole, SBA. Assessment Current Status: Good Progress Pt moving slow and guarded due to pain. Pt lukas fair-well and was able to participate despite high pain level. Pt back to chair with call light in reach , O2 insitu and all needs met. PT Mcc Goals Mcc Goals PT Assembling Machine Operator Goals Time Frame: Jul 09, 2016 Transfers (B,C,W/C) (FIM): 7 Gait (FIM): 7 Gait distance (FIM): 3=150 ft Distance: 250' Gait Level of Assist: 7 Gait Assistive Device: None, FWW PT Plan Treatment/Plan Treatment Plan: Continue Plan of Care Treatment Plan: Bed Mobility, Education, Functional Activity Aris, Functional Strength, Gait, Safety, Therapeutic Exercise, Transfers Treatment Duration: Jul 09, 2016 Visits Per Week: 5-6 Time/GCodes Time In: 825 Time Out: 850 Total Billed Treatment Time: 25 Total Billed Treatment 1, gait 25 min [facility] CPTA Jul 03, 2016 08:58
--- NOTE | 2016-07-03 09:29 | Cardiology Progress Note ---
Objective-Cardiology Exam Last Set of Vital Signs Vital Signs 07/03/16 08:00 Temp 99.0 Pulse 86 Resp 20 B/P 131/77 Pulse Ox 97 O2 Delivery Nasal Cannula O2 Flow Rate 2.00 Capillary Refill : Less Than 3 Seconds I&O Intake and Output 07/03/16 00:00 Intake Total 2500 ml Output Total 2450 ml Balance 50 ml Intake Oral 1205 ml IV Total 1295 ml Output Urine Total 2450 ml # Bowel Movements 7 General: Alert, Oriented X3, Cooperative HEENT: Atraumatic, PERRLA Neck: Supple, No JVD, No Thyromegaly Lungs: Clear to Auscultation, Normal Air Movement Heart: Regular Rate, Normal S1, Normal S2, No Murmurs Abdomen: Normal Bowel Sounds, Soft, No Tenderness, No Hepatosplenomegaly, No Masses Extremities: No Clubbing, No Cyanosis, No Edema, Normal Pulses, No Tenderness/ Swelling Skin: No Rashes, No Breakdown Neuro: Normal Gait, Normal Speech, Strength at 5/5 X4 Ext, Normal Tone, Sensation Intact Results Lab Laboratory Tests 07/03/16 04:30 A/P-Cardiology Admission Diagnosis Rib fracture Coronary artery disease Congestive heart failure, chronic compensated left ventricle systolic dysfunction, ischemic cardiomyopathy Hyperlipidemia Assessment/Plan Status post fall and rib fracture with liver laceration, status post embolization to the spleen. Questionable cause for syncope could be hypotension versus arrhythmia, Autonomic dysfunction. Telemetry reveals SR with BBB, H&H are decreasing. Continue to monitor, stop Plavix. Generalized weakness, receiving physical therapy. Hypokalemia, replace and monitor electrolytes Coronary artery disease, multiple intervention the past, last procedure reported in 2011. Patient had a patent stent in the mid LAD, Atom 2.2512 mm, 70 percent stenosis in the proximal ramus intermedius artery which was not intervened on. I will discontinue Plavix at this time. Monitor H&H Mild bilateral carotid stenosis, ultrasound done yesterday reveals nonobstructive disease bilaterally. Continue to monitor History of ischemic cardiomyopathy with diffuse left ventricular hypokinesia and ejection fraction 30-35 percent per last study in 2011, EF improved to 50%, quality of the echo was fairly limited, endocardium was not well visualized, MUGA scan showed ejection fraction 40 percent.cannot tolerate beta blockers, MIHAI inhibitor and/or ARB at this point due to possible orthostatic hypotension and syncope. I will try low dose beta blockers and evaluate tolerance. 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 Hyperlipidemia Diabetes mellitus, followed and managed by primary care physician Peripheral neuropathy Gastroesophageal reflux disease Degenerative joint disease, neuropathy, chronic back pain Clinical Quality Measures DVT/VTE Risk/Contraindication: Risk Factor Score Per Nursin RFS Level Per Nursing on Admit: 3=High RODRI JOLLY MD Jul 03, 2016 09:29
[2016-07-03] MEDS: POTASSIUM CL 10MEQ/50ML IVPB 50 ML IV SCH (09:41)
[2016-07-03 12:00] VITALS: BP 161/79
--- NOTE | 2016-07-03 12:09 | Discharge Summary-Hospitalist ---
Diagnosis/Chief Complaint Date of Admission Jun 29, 2016 at 10:50 Date of Discharge Jul 03, 2016 at 10:16 Discharge Date: Jul 03, 2016 Admission Diagnosis Assessment: Fall with splenic laceration s/p embolization Cognitive deficit with live and care takers CHF EF of 35% Rib fractures 8-10 with ATX Anemia due to splenic laceration DM CAD Leukocytosis Hypokalemia HTN Low grade fever Weakness Discharge Diagnosis Assessment: Fall with splenic laceration s/p embolization MUGA scan negative Cognitive deficit with live-in care takers CT head negative likely this slowed cognition is baseline CHF EF of 35% Rib fractures 8-10 with ATX Anemia due to splenic laceration DM CAD Leukocytosis Hypokalemia HTN Low grade fever Weakness Chart Review: BP 154/95 Max fever 100.6 WBC 11.5 Hgb 8.2 K+ 3.2 w/ supplement Albumin poor at 2.1 Sugars 160s varnisher: Pt had a loose BM this morning but it did not smell like C. Diff. Dr. Alcantara stated that he is ok with move to floor if approved by Dr. Garcia. Dr. Garcia has not seen pt yet today. MUGA scan scheduled for 1pm. Pt has been ambulating this morning. RN states that swingbed is likely. RN has not spoken to family regarding baseline. Patient Interview: Pt states that he remembers Dr. Pearl from yesterday. Pt states that he still feels somewhat weak and sore. Dr. Pearl informs pt that he will receive MUGA scan. Pt confirms that he has been ambulating. Pt states that he normally does not use a walker at home. Dr. Pearl discusses rehab option with pt. Pt is not decisive at this time but is open to the option. Pt states that he has spoken to PCP and will have a follow-up after DC. Physical exam was stable. Low grade fever noted, O x 3 delayed affect RRR, decreased BS all tyler No edema Laboratory Tests 07/02/16 03:25 Assessment: Fall with splenic laceration s/p embolization Cognitive deficit with live-in care takers CHF EF of 35% Rib fractures 8-10 with ATX Anemia due to splenic laceration DM CAD Leukocytosis Hypokalemia HTN Low grade fever Weakness Plan: Rehab eval Swingbed eval MUGA scan at 1pm to evaluate for spleen bleeding Prognosis poor Scribed by Arpan Fitzgerald under the direct supervision of Dr. Pearl. Reason Hospital Visit/Course CC: Confusion after fall with splenic injury HPI: This is a 75yoWM pt of Dr. Noriega' that presented to ED via EMS after fall and workup revealed splenic laceration on CT and rib fractures 8-10. He underwent an uncomplicated embolization per interventional radiology and Dr. Alcantara and Dr. Holder have been consulted for pulmonary contusion and CHF respectively. varnisher: Pt was incontinent of stool today twice Pt has not been ambulating yet RN states that pt has not been eating much Pt has SCDs Pt has not received any pain meds K+ and PO4 are being replaced. Patient Interview: Pt confirms that PCP is Dr. Tomas in [place]. Pt lives in [place] by himself. Pt states that family members from [place] occasionally check on him. Physical exam was stable. Pt denies smoking and drinking excessive ETOH. 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 Pt states that he used to see Dr. Holder for Cardiology but no longer does on a regular basis. Pt states that he checks his blood sugar almost every day at home. Pt uses [facility] and [facility] for pharmacy needs. Dr. Pearl informs pt that he will receive nutrition through IV and begin to work with PT. Pt states that he normally takes morphine prescribed by Dr. Guadalupe but he has not received it this month. Scribed by Arpan Fitzgerald under the direct supervision of Dr. Pearl. Patient feels much better but overall slow recovery and has little confidence in his ability to ambulate with 1 assist with physical therapy but he appears to be doing well Reviewed CT head due to confusion but no acute abnormality and likely cognition is baseline but unable to confer with family Will swing bed to further recuperate no fever, vital signs stable, Slow affect and cognition no change Regular rate and rhythm, but also should bilaterally but decreased excursion due to rib fractures No edema Positive bowel sounds nontender Hospital course: Patient had an uneventful hospital course very complicated though requiring ICU after fall sustaining a splenic laceration status post embolization by interventional radiology with good results and MUGA scan showed no evidence of any continued bleeding. He overall had severe weakness and unable to regain ability to ambulate and baseline cognitive decline slowed that recovery process he was placed on swing bed for close monitoring and supportive care and hopefully be able to disposition to home or senior living facility on Wednesday. Discharge Summary Discharge Physical Examination Allergies: Coded Allergies: No Known Drug Allergies (Verified , 07/03/16) Vitals & I&Os Vital Signs Date Time Temp Pulse Resp B/P Pulse Ox O2 Delivery O2 Flow Rate FiO2 07/03/16 08:00 97 Nasal Cannula 2.00 07/03/16 08:00 99.0 86 20 131/77 Hospital Course Labs (last 24 hrs) Laboratory Tests 07/02/16 17:53: Glucometer 134H 07/03/16 00:07: Glucometer 210H 07/03/16 04:30: Anion Gap 9, BUN/Creatinine Ratio 27, Basophils # (Auto) 0.0, Basophils (%) ( Auto) 0, Blood Urea Nitrogen 19H, Calcium Level 8.2L, Carbon Dioxide Level 20L, Chloride Level 105, Creatinine 0.71, Eosinophils # (Auto) 0.1, Eosinophils (%) ( Auto) 2, Estimat Glomerular Filtration Rate > 60, Glucose Level 128H, Hematocrit 24L, Hemoglobin 7.8L, Lymphocytes # (Auto) 1.1, Lymphocytes (%) (Auto ) 13, Magnesium Level 1.9, Mean Corpuscular Hemoglobin 28, Mean Corpuscular Hemoglobin Concent 33, Mean Corpuscular Volume 85, Mean Platelet Volume 8.6, Monocytes # (Auto) 0.7, Monocytes (%) (Auto) 9, Neutrophils # (Auto) 6.2, Neutrophils (%) (Auto) 76H, Phosphorus Level 2.2L, Platelet Count 267, Potassium Level 3.2L, Red Blood Count 2.81L, Red Cell Distribution Width 13.3, Sodium Level 134L, White Blood Count 8.2 Pending Labs Laboratory Tests 07/03/16 04:30: Anion Gap 9, BUN/Creatinine Ratio 27, Basophils # (Auto) 0.0, Basophils (%) ( Auto) 0, Blood Urea Nitrogen 19, Calcium Level 8.2, Carbon Dioxide Level 20, Chloride Level 105, Creatinine 0.71, Eosinophils # (Auto) 0.1, Eosinophils (%) ( Auto) 2, Estimat Glomerular Filtration Rate > 60, Glucose Level 128, Hematocrit 24, Hemoglobin 7.8, Lymphocytes # (Auto) 1.1, Lymphocytes (%) (Auto) 13, Magnesium Level 1.9, Mean Corpuscular Hemoglobin 28, Mean Corpuscular Hemoglobin Concent 33, Mean Corpuscular Volume 85, Mean Platelet Volume 8.6, Monocytes # (Auto) 0.7, Monocytes (%) (Auto) 9, Neutrophils # (Auto) 6.2, Neutrophils (%) (Auto) 76, Phosphorus Level 2.2, Platelet Count 267, Potassium Level 3.2, Red Blood Count 2.81, Red Cell Distribution Width 13.3, Sodium Level 134, White Blood Count 8.2 Discharge Home Medications: Active Scripts Active Reported Morphine Sulfate 15 Mg Tablet 15 Mg PO Q6H PRN Morphine Sulfate ER (Morphine Sulfate) 60 Mg Tablet.er 60 Mg PO BID Amitiza (Lubiprostone) 24 Mcg Capsule 24 Mcg PO BID Instructions to patient/family Please see electonic discharge instructions given to patient. Clinical Quality Measures DVT/VTE Risk/Contraindication: Risk Factor Score Per Nursin RFS Level Per Nursing on Admit: 3=High CATHIE PEARL DO Jul 03, 2016 12:09
--- NOTE | 2016-07-03 14:58 | Diagnostic Imaging Report ---
Indication: Shortness of breath. Exam: Portable chest at 3:04 AM Findings: The heart size and pulmonary vascularity are normal. There is slight blunting of left costophrenic angle suggesting left basilar infiltrate and/or atelectasis plus or minus an effusion. Impression: Minimal consolidation of the left lung base appears similar to the previous day. Dictated by: Dictated on workstation # [id number]
[2016-07-03] MEDS ORDERED: meTOprolol TARTRATE 25 MG (LOPRESSOR) TABLET PO SCH (21:00)
[2016-07-07] MEDS ORDERED: MORP15TA PO (09:16)
[2016-07-07] MEDS ORDERED: MORP60TA52 PO (09:16)
== END 2016-07-03 10:16 | disposition swing bed (61) | DRG 988 ==
LOC: EDUNIT# 03:07 → ER 03:10 → CATH 06:30 → ICU 10:30 → CATH 10:50 → ICU 10:50 → 4TH 07-02 13:35
PROVIDERS: ADMIT Surgery; ATTEND Surgery
PROC: 04L43DZ Occlusion of Splenic Artery with Intraluminal Device, Percutaneous Approach (ICD-10-PCS; principal; 2016-06-29)
PROC: B4131ZZ Fluoroscopy of Splenic Arteries using Low Osmolar Contrast (ICD-10-PCS; 2016-06-29)
PROC: B4121ZZ Fluoroscopy of Hepatic Artery using Low Osmolar Contrast (ICD-10-PCS; 2016-06-29)
PROC: B41C1ZZ Fluoroscopy of Pelvic Arteries using Low Osmolar Contrast (ICD-10-PCS; 2016-06-29)
DX: S36.039A Unspecified laceration of spleen, initial encounter (principal); S22.42XA Multiple fractures of ribs, left side, initial encounter for closed fracture; I25.10 Atherosclerotic heart disease of native coronary artery without angina pectoris; E11.51 Type 2 diabetes mellitus with diabetic peripheral angiopathy without gangrene; E11.42 Type 2 diabetes mellitus with diabetic polyneuropathy; I11.0 Hypertensive heart disease with heart failure; I50.22 Chronic systolic (congestive) heart failure; D64.9 Anemia, unspecified; E87.6 Hypokalemia; I25.2 Old myocardial infarction; F32.9 Major depressive disorder, single episode, unspecified; M19.90 Unspecified osteoarthritis, unspecified site; E83.39 Other disorders of phosphorus metabolism; Z95.5 Presence of coronary angioplasty implant and graft; Z95.820 Peripheral vascular angioplasty status with implants and grafts; W18.2XXA Fall in (into) shower or empty bathtub, initial encounter; Y92.002 Bathroom of unspecified non-institutional (private) residence as the place of occurrence of the external cause; Y99.8 Other external cause status; R53.1 Weakness; R42 Dizziness and giddiness; I65.23 Occlusion and stenosis of bilateral carotid arteries; I25.5 Ischemic cardiomyopathy; R41.89 Other symptoms and signs involving cognitive functions and awareness
CPT/HCPCS: 36245; 36246; 36248; 36415; 37244; 70450; 71010; 71260; 74000; 74177; 75625; 75774; 78472; 80048; 80053; 80320; 81000; 82805; 82962; 83735; 84100; 84484; 85007; 85014; 85018; 85025; 85027; 86850; 86900; 86901; 86920; 93005; 93306; 93880; 94664; 96361; 96374; 96376

== ENCOUNTER 2016-07-03 10:44 | Inpatient (IN) | payer MEDICARE, MEDICAID ==
[~2016-07-03] VITALS: Ht 182.9 cm; Wt 102.2 kg
--- NOTE | 2016-07-03 09:55 | Diagnostic Imaging Report ---
PROCEDURE PHYSICIAN: RODRI JOLLY DATE OF PROCEDURE: 07/02/2016 REFERRING PHYSICIAN: Dr. Reed SUMMARY: The patient was injected with 31.8 mCi of technetium 99 tagged RBCs. Images were acquired in 4 views. Review of the images showed the left ventricular contractility appeared to be good. Calculated ejection fraction is 40%. CONCLUSION: Calculated ejection fraction on MUGA scan is 40% Job ID: [id number] Dictated Date: 07/03/2016 08:42:09 Internal Grinder Set Up Operator Date: 07/03/2016 09:52:19 / abi
[~2016-07-03 10:44] MED LIST changes: +MORP60TA52 PO; +ONDANSETRON 4 MG/2 ML (SDV) Z0FRAN IVP PRN; +POTASSIUM CL 10MEQ/50ML IVPB 50 ML IV SCH
[2016-07-03] MEDS: AA 4.25% W/LYTES IN D5W IV SOL 1,000 ML IV SCH (13:05)
[2016-07-03] MEDS: inSUlin (REGULAR) HUMAN 1 UNIT/0.01 ML (CHARGE PER UNIT) SC SCH ×2 (13:06→17:50)
--- NOTE | 2016-07-03 13:34 | Physical Therapy Progress Note ---
Therapy Progress Note Attempted swing bed evaluation twice this afternoon. Patient refused both times. He states he is just "too " to do anything right now, meaning he is too exhausted. Will try again in the morning. WOLFGANG MOTA PT Jul 03, 2016 13:33
--- NOTE | 2016-07-03 16:22 | Occupational Therapy Eval ---
OT Evaluation-General/PLF Medical Diagnosis Admission Date Jul 03, 2016 at 10:44 Medical Diagnosis: splenic laceration, rib fractures Onset Date: Jun 29, 2016 Therapy Diagnosis Therapy Diagnosis: decr self care, weakness, decr activity tolerance Height/Weight Height (Feet): 6 Height (Inches): 0.00 Weight (Pounds): 225 Weight (Ounces): 4.8 Precautions Precautions/Isolations: Fall Prevention, Standard Precautions Referral Physician: Margie Referral Reason: Evaluation/Treatment Medical History Pertinent Medical History: Arthritis, CAD, DM, HTN, [place], Neuropathy, PVD Additional Medical History Hx coronary stent, chronic UTI, depression, bilat carotid stenosis Current History Fell at home in bathroom, fx several ribs. Syncope Social History Home: Apartment ([facility]) Current Living Status: Alone Entry Into Home: Level Entry ADL-Prior Level of Function ADL PLOF Comments Pt reported that he has been able to manage his basic self care needs , do light cooking and housework, laundry. He said his daughter comes over every now and then to help around his apartment. he still drives. Pt was on IRF about 6 years ago for hip fx. DME/Equipment Comments Pt reported no adapted equipment in bathroom Occupation: retired flatbed truck driver Drive Self: Yes OT Current Status Subjective Pt seen in room, up in bed, agreeable to OT but having difficulty staying awake and on task. Pt reported pain 5/10 but unable to describe where he hurt or how much. Said he was getting the medicine he needed Appearance Sleepy, slow to respond Mental Status/Objective Patient Orientation: Person, Place, Time, Situation Attachments: IV, Oxygen, Telemetry Current Glasses/Contacts: Yes Hand Dominance: Right Upper Extremity ROM Grossly WFL bilat Upper Extremity Strength Grossly 4/5 bilat ADL-Treatment ADL-Current Pt was eating lunch and was able to get drink and take bites with setup. He was able to brush his teeth with supervision and cues. Nursing reported he was able to get on/off toilet with CGA and was able to manage clothing CGA and hygiene Functional [place] Measure 0=Not Assessed/NA 4=Minimal Assistance 1=Total Assistance 5=Supervision or Setup 2=Maximal Assistance 6=Modified [place] 3=Moderate Assistance 7=Complete IndependenceIRFPAI Quality Coding Scale 6 Independent with activity with or without an assistive device 5 Patient requires set up or clean up by helper. Patient completes activity by themselves 4 Supervision or touching assist (CGA). [place] provide cues , steadying assist 3 The helper provides less than half the effort to complete the activity 2 The helper provides more than half the effort to complete the activity 1 Dependent. The helper does all the effort to complete an activity 7 Patient refused to complete or attempt activity 9 The patient did not perform the activity before the current illness or injury 88 Not attempted due to Medical conditions or safety concerns Eating (FIM): 5 Eating (QC): 5 Grooming (FIM): 5 (superv) Oral Hygiene (QC): 4 (superv) Toileting Hygiene (QC): 4 Toileting (FIM): 4 (CGA) Toilet/Commode Transfer (FIM): 4 (CGA) Toilet Transfer (QC): 4 Education OT Patient Education: Purpose of tx/functional activities, Rehab process Teaching Recipient: Patient Teaching Methods: Discussion Response to Teaching: Verbalize Understanding, Reinforcement Needed OT Detention Goals Detention Goals Time Frame: Jul 17, 2016 Eating (FIM): 6 Eating (QC): 6 Oral Hygiene (QC): 6 Grooming(FIM): 6 Bathing(FIM): 5 Upper Body Dressing(FIM): 5 Lower Body Dressing(FIM): 5 Toileting(FIM): 6 Toilet/Commode Transfer(FIM): 6 Toilet/Commode Transfer (QC): 5 Shower Transfer(FIM): 5 Additional Goals: 2-Verbalize Understanding, 3-ImproveStrength/Aris 1=Demonstrate adherence to instructed precautions during ADL tasks. 2=Patient will verbalize/demonstrate understanding of assistive devices/ modifications for ADL. 3=Patient will improve strength/tolerance for activity to enable patient to perform ADL's. OT Education/Plan Problem List/Assessment Assessment: Decreased Activ Tolerance, Decreased UE Strength, Dependent Transfers, Impaired Funct Balance, Impaired Self-Care Skills Pt would benefit from skilled OT to increase his indep in basic self care to allow him to safely return to his home after hospitalization, rib fx, chronic back and leg pain Discharge Recommendations Plan/Recommendations: Continue POC Barriers to Progress medications Treatment Plan/Plan of Care Treatment,Training & Education: Yes Patient would benefit from OT for education, treatment and training to promote independence in ADL's, mobility, safety and/or upper extremity function for ADL' s. Plan of Care: ADL Retraining, Functional Mobility, UE Funct Exercise/Act, UE Neuromus Re-Ed/Coord Treatment Duration: Jul 17, 2016 # of days/week 5 Visits Per Week: 5 Agreement: Yes Rehab Potential: Fair Time/GCodes Start Time: 13:45 Stop Time: 14:03 Total Time Billed (hr/min): 18 Billed Treatment Time visit, 18 minutes evaluation moderate complexity NICO CHIRINOS OT Jul 03, 2016 16:22
[2016-07-03 16:55] VITALS: BP 136/74
[2016-07-03 19:20] VITALS: BP 138/85
[2016-07-03 21:33] VITALS: BP 150/80
[2016-07-03] MEDS: LUBIPROSTONE 24 MCG CAP (AMITIZA) NON-FORMULARY PO SCH (21:35)
[2016-07-03] MEDS: meTOprolol TARTRATE 25 MG (LOPRESSOR) TABLET PO SCH (21:36)
[2016-07-03] MEDS: morphine IMMEDIATE RELEASE 15 MG TABLET PO PRN (23:45)
[2016-07-04] VITALS (7 sets, daily range): BP systolic 100–140; BP diastolic 50–80
[2016-07-04] MEDS: inSUlin (REGULAR) HUMAN 1 UNIT/0.01 ML (CHARGE PER UNIT) SC SCH ×5 (00:50→18:35)
[2016-07-04] MEDS: AA 4.25% W/LYTES IN D5W IV SOL 1,000 ML IV SCH ×2 (01:50→12:12)
[2016-07-04] MEDS: morphine IMMEDIATE RELEASE 15 MG TABLET PO PRN ×3 (06:42→21:14)
[2016-07-04] MEDS: fentaNYL INJECTION 100 MCG/2 ML AMP IV PRN ×2 (07:48→18:39)
[2016-07-04] MEDS: LUBIPROSTONE 24 MCG CAP (AMITIZA) NON-FORMULARY PO SCH ×2 (09:04→21:14)
[2016-07-04] MEDS: meTOprolol TARTRATE 25 MG (LOPRESSOR) TABLET PO SCH ×2 (09:04→21:00)
--- NOTE | 2016-07-04 10:20 | Physical Therapy Evaluation ---
PT Evaluation-General Medical Diagnosis Admission Date Jul 03, 2016 at 10:44 Medical Diagnosis: splenic laceration, rib fractures Onset Date: Jun 29, 2016 Therapy Diagnosis Therapy Diagnosis: decreased mobility Height/Weight Height (Feet): 6 Height (Inches): 0.00 Weight (Pounds): 225 Weight (Ounces): 4.8 Precautions Precautions/Isolations: Fall Prevention, Standard Precautions Referral Physician: Margie Reason for Referral: Evaluation/Treatment Medical History Pertinent Medical History: Arthritis, CAD, DM, HTN, [place], Neuropathy, PVD Current History Fall at home, sustained several rib fractures Reviewed History: Yes ([place]) Social History Home: Apartment ([facility]) Current Living Status: Alone Entry Into Home: Level Entry Pt. says he may stay with his daughter following discharge Prior/Core FIM Prior Level of Function Functional [place] Measure 0=Not Assessed/NA 4=Minimal Assistance 1=Total Assistance 5=Supervision or Setup 2=Maximal Assistance 6=Modified [place] 3=Moderate Assistance 7=Complete [place] Bed Mobility: 7 Transfers (B,C,W/C) (FIM): 7 Gait: 7 Locomotion: 7 PT Evaluation-Current Subjective Pt. in bed and agrees to therapy. Pain Numeric Pain Scale: 8 Location: Anterior Location Body Site: Abdomen Pain Description: Sharp Pt/Family Goals home with daughter vs. apartment Objective Patient Orientation: Person, Place, Time, Situation Problem Solving: Good Attachments: Oxygen (2L), IV ROM/Strength ROM Upper Extremities WFL ROM Lower Extremities WFL Strength Upper Extremities WFL Strenght Lower Extremities Grossly 4+/5 (B) Integumentary/Posture Integumentary see nursing notes Bowel Incontinence: No Bladder Incontinence: No Posture guarded of trunk due to pain Neuromuscular (Tone, Coordination, Reflexes) intact Sensory Vision: Wears Glasses Hearing: Functional Hand Dominance: Right Sensation Right Upper Extremit: Intact Sensation Left Upper Extremity: Intact Sensation Right Lower Extremit: Intact Sensation Left Lower Extremity: Intact Transfers Functional [place] Measure 0=Not Assessed/NA 4=Minimal Assistance 1=Total Assistance 5=Supervision or Setup 2=Maximal Assistance 6=Modified [place] 3=Moderate Assistance 7=Complete [place] Transfers (B, C, W/C) (FIM): 3 Supine to/from Sit: 3 Sit to/from Stand: 4 Sit to Lying (QC): 88 Lying to Sitting/Side of Bed(Q: 3 Sit to Stand (QC): 4 Chair/Uyd-pb-Cqdll Xfer(QC): 4 Gait Does the Patient Walk?: Yes Mode of Locomotion: Walk Anticipated Mode of Locomotion: Walk Gait (FIM): 4 Distance (FIM): 3=150 ft Distance: 400 ft Walk 50 ft with 2 Turns(QC): 4 Walk 150 ft (QC): 4 Gait Level of Assist: 4 Gait Persons Needed: 1 Gait Assistive Device: FWW Comments/Gait Description steady during ambulation but leans of walker Balance Sitting Static: Good Sitting Dynamic: Good Standing Static: Good Standing Dynamic: Fair Treatment gait Assessment/Needs Pt. is a 75 y.o. male with decreased mobility following a fall at home and sustaining several rib fractures. Pt. was steady during ambulation and has some difficulty with transfers due to rib pain. Pt. to benefit from skilled PT to improve mobility and (I) to return home. Rehab Potential: Good PT Retirement Goals Retirement Goals PT Retirement Goals Time Frame: Jul 25, 2016 Transfers (B,C,W/C) (FIM): 6 Sit to Lying (QC): 6 Lying-Sitting on Side/Bed(QC): 6 Sit to Stand (QC): 6 Chair/Juc-pi-Nnrqm Xfer(QC): 6 Does the Patient Walk: Yes Gait (FIM): 6 Gait distance (FIM): 3=150 ft Distance: 300 ft Walk 50ft with 2 Turns (QC): 6 Walk 150 ft (QC): 6 Gait Level of Assist: 6 Gait Assistive Device: FWW Does the Pt use WC or Scooter?: No PT Plan Problem List Problem List: Activity Tolerance, Functional Strength, Safety, Balance, Gait, Transfer, Bed Mobility Treatment/Plan Treatment Plan: Continue Plan of Care Treatment Plan: Bed Mobility, Education, Functional Activity Aris, Functional Strength, Gait, Safety, Therapeutic Exercise, Transfers Treatment Duration: Jul 25, 2016 # of days/week 6 Visits Per Week: 6 Pt/Family Agrees w/Plan: Yes Time/GCodes Time In: 815 Time Out: 845 Total Billed Treatment Time: 30 Total Billed Treatment 1, EVS 15', GT 15' EDGAR VIGIL PT Jul 04, 2016 10:20
[2016-07-05] VITALS: BP 105/62
[2016-07-05] MEDS: fentaNYL INJECTION 100 MCG/2 ML AMP IV PRN (00:11)
[2016-07-05] MEDS: inSUlin (REGULAR) HUMAN 1 UNIT/0.01 ML (CHARGE PER UNIT) SC SCH ×4 (00:14→18:25)
[2016-07-05] MEDS: AA 4.25% W/LYTES IN D5W IV SOL 1,000 ML IV SCH ×3 (01:51→16:33)
[2016-07-05 04:00] VITALS: BP 110/56
[2016-07-05] MEDS: morphine IMMEDIATE RELEASE 15 MG TABLET PO PRN ×3 (06:41→20:36)
[2016-07-05 08:00] VITALS: BP 118/55
[2016-07-05] MEDS: LUBIPROSTONE 24 MCG CAP (AMITIZA) NON-FORMULARY PO SCH ×2 (10:08→20:08)
[2016-07-05] MEDS: meTOprolol TARTRATE 25 MG (LOPRESSOR) TABLET PO SCH ×2 (10:08→20:34)
[2016-07-05 12:00] VITALS: BP 141/64
[2016-07-05 16:00] VITALS: BP 124/60
[2016-07-05 20:05] VITALS: BP 118/71
[2016-07-05] MEDS ORDERED: ACETAMINOPHEN 500 MG TAB (TYLENOL) PO PRN (21:30)
[2016-07-06] MEDS: fentaNYL INJECTION 100 MCG/2 ML AMP IV PRN (00:05)
[2016-07-06 00:12] VITALS: BP 96/59
[2016-07-06] MEDS: inSUlin (REGULAR) HUMAN 1 UNIT/0.01 ML (CHARGE PER UNIT) SC SCH ×4 (00:51→19:24)
[2016-07-06 04:40] LABS: MEAN PLATELET VOLUME 8.7 FL (7.4-10.4); RED BLOOD COUNT 2.97 10^6/uL (4.35-5.85); RED CELL DISTRIBUTION WIDTH 14.5 % (10.0-14.5); WHITE BLOOD COUNT 8.3 10^3/uL (4.3-11.0)
[2016-07-06] MEDS: AA 4.25% W/LYTES IN D5W IV SOL 1,000 ML IV SCH (04:41)
[2016-07-06 05:04] LABS: ANION GAP 8 MMOL/L (5-14); BLOOD UREA NITROGEN 18 MG/DL (7-18); BUN/CREATININE RATIO 23; CALCIUM 8.6 MG/DL (8.5-10.1); CARBON DIOXIDE 21 MMOL/L (21-32); CHLORIDE 109 MMOL/L (98-107); CREATININE SERUM 0.77 MG/DL (0.60-1.30); GFR ESTIMATED > 60; GLUCOSE 145 MG/DL (70-105); POTASSIUM 3.3 MMOL/L (3.6-5.0); SODIUM 138 MMOL/L (135-145)
--- NOTE | 2016-07-06 07:44 | Progress Note-Hospitalist ---
Progress Note Progress Notes/Assess & Plan Date Seen 07/06/16 Diagonsis/Assessment & Plan Patient had no events over the weekend Low-grade fever persist Still in a lot of pain so will restart his home medication extended release morphine Loose stools persist low potassium noted so we'll supplement Overall doing much better and getting around better so will plan on disposition in the next day or two AFVSS, pleasant, oriented 3, improved cognition Regular rate and rhythm, clear to auscultation bilaterally but decreased breath sounds in the bases No edema Laboratory Tests 07/06/16 04:08 Assessment: Fall with splenic laceration s/p embolization MUGA scan negative Cognitive deficit with live-in care takers CT head negative likely this slowed cognition is baseline CHF EF of 35% Rib fractures 8-10 with ATX Anemia due to splenic laceration DM CAD Leukocytosis Hypokalemia replacing HTN Low grade fever Weakness Check Iron level and give Venofer empirically due to iron loss from acute blood loss Replace Potassium Social service consult for disposition Discontinue Clinimix Restart home meds morphine CATHIE PEARL DO Jul 06, 2016 07:44
[2016-07-06 08:05] VITALS: BP 124/58
[2016-07-06] MEDS ORDERED: KCL 20 MEQ TAB (K-DUR) PO NR (08:12)
[2016-07-06] MEDS ORDERED: IRON SUCROSE INJECTION 200 MG in NS (IVPB) 100 ML IV SCH (08:15)
[2016-07-06] MEDS: morphine ER 15 MG (MS CONTIN) TAB PO SCH ×2 (08:33→20:29)
[2016-07-06] MEDS: meTOprolol TARTRATE 25 MG (LOPRESSOR) TABLET PO SCH ×2 (08:40→21:50)
[2016-07-06] MEDS: LUBIPROSTONE 24 MCG CAP (AMITIZA) NON-FORMULARY PO SCH ×2 (08:41→20:20)
[2016-07-06] MEDS ORDERED: ZINC OXIDE 16% OINT (BUTT PASTE) 113 GM TUBE TOP PRN (08:45)
--- NOTE | 2016-07-06 10:45 | Physical Therapy Daily Note ---
PT Daily Note-Current Subjective Pt sitting in recliner upon arrival. Pt reports still having pain along all L side in ribs where is fell. Pt agrees to walk for PT though. Pain Numeric Pain Scale: 7 Location: Left Location Body Site: Side Pain Description: Sharp Mental Status Patient Orientation: Person, Place, Time, Situation Attachments: IV Transfers Functional [place] Measure 0=Not Assessed/NA 4=Minimal Assistance 1=Total Assistance 5=Supervision or Setup 2=Maximal Assistance 6=Modified [place] 3=Moderate Assistance 7=Complete IndependenceIRFPAI Quality Coding Scale 6 Independent with activity with or without an assistive device 5 Patient requires set up or clean up by helper. Patient completes activity by themselves 4 Supervision or touching assist (CGA). [place] provide cues , steadying assist 3 The helper provides less than half the effort to complete the activity 2 The helper provides more than half the effort to complete the activity 1 Dependent. The helper does all the effort to complete an activity 7 Patient refused to complete or attempt activity 9 The patient did not perform the activity before the current illness or injury 88 Not attempted due to Medical conditions or safety concerns Transfers (B, C, W/C) (FIM): 4 Scootin Roll Left to Right (QC): 88 Sit to/from Stand: 4 Sit to Lying (QC): 88 Sit to Stand (QC): 4 Chair/Mpx-ay-[facility] Xfer(QC): 88 Didn't attempt any lying transfers due to pain and discomfort pt is feeling in L side ribs. Weight Bearing Weight Bearing Restriction: Full Weight Bearing Location Restriction: LE Bilateral Gait Training Does the Patient Walk?: Yes Gait (FIM): 4 Distance (FIM): 3=150 ft Distance: 325' Walk 50 ft with 2 Turns(QC): 4 Walk 150 ft (QC): 4 Gait Level of Assist: 4 Gait Persons Needed: 1 Gait Assistive Device: FWW Pt walks with slow josé luis but is steady with no LOB. Treatments Pt transferred from recliner to standing using FWW at Min A. Pt ambulates using FWW at CGA in case of unsteadiness. Pt was fatigued by end of walk and wanted to return to room to rest in recliner. Pt was a little SOB so PT encouraged Deep Breathing Technique (VC and Visualization). Pt returned to recliner to rest with all needs met at end of tx. Assessment Current Status: Good Progress Pt is making progress. Pt ambulated farther with less fatigue and more steadiness during ambulation. PT Shelter Goals Shelter Goals PT Deputy Program Manager Goals Time Frame: Jul 25, 2016 Transfers (B,C,W/C) (FIM): 6 Sit to Lying (QC): 6 Lying-Sitting on Side/Bed(QC): 6 Sit to Stand (QC): 6 Chair/Dnc-hd-Lpanw Xfer(QC): 6 Does the Patient Walk: Yes Gait (FIM): 6 Gait distance (FIM): 3=150 ft Distance: 300 ft Walk 50ft with 2 Turns (QC): 6 Walk 150 ft (QC): 6 Gait Level of Assist: 6 Gait Assistive Device: FWW Does the Pt use WC or Scooter?: No PT Plan Problem List Problem List: Activity Tolerance, Functional Strength, Safety, Balance, Gait, Transfer, Bed Mobility Treatment/Plan Treatment Plan: Continue Plan of Care Treatment Plan: Bed Mobility, Education, Functional Activity Aris, Functional Strength, Gait, Safety, Therapeutic Exercise, Transfers Treatment Duration: Jul 25, 2016 Visits Per Week: 6 Safety Risks/Education Patient Education: Gait Training, Transfer Techniques, Correct Positioning, Safety Issues Teaching Recipient: Patient Teaching Methods: Discussion Response to Teaching: Verbalize Understanding Time/GCodes Time In: 1015 Time Out: 1035 Total Billed Treatment Time: 20 Total Billed Treatment visit, GT (20m) OSBALDO OLVERA PTA Jul 06, 2016 10:45
--- NOTE | 2016-07-06 13:16 | Occupational Ther Daily Note ---
OT Current Status-Daily Note Subjective Pt seen in room, up in recliner, agreeable to OT. Said he has clothes and razor coming this afternoon Mental Status/Objective Functional [place] Measure 0=Not Assessed/NA 4=Minimal Assistance 1=Total Assistance 5=Supervision or Setup 2=Maximal Assistance 6=Modified [place] 3=Moderate Assistance 7=Complete [place] ADL-Treatment Functional [place] Measure 0=Not Assessed/NA 4=Minimal Assistance 1=Total Assistance 5=Supervision or Setup 2=Maximal Assistance 6=Modified [place] 3=Moderate Assistance 7=Complete IndependenceIRFPAI Quality Coding Scale 6 Independent with activity with or without an assistive device 5 Patient requires set up or clean up by helper. Patient completes activity by themselves 4 Supervision or touching assist (CGA). [place] provide cues , steadying assist 3 The helper provides less than half the effort to complete the activity 2 The helper provides more than half the effort to complete the activity 1 Dependent. The helper does all the effort to complete an activity 7 Patient refused to complete or attempt activity 9 The patient did not perform the activity before the current illness or injury 88 Not attempted due to Medical conditions or safety concerns Other Treatment Pt declined taking a shower or toileting. Said he had clothes coming later today and didn't want to do dressing until then. he agreed to exercise. Pt did 10 reps bilat UE exercise with no additional resistance, working on shoulders, elbows, forearms, wrists and hands. Pt was able to track repetitions and needed only occasional cueing with the exercises. Exercise to help with transfers and standing during ADLs. Pt left up in recliner, all needs met. He was able to open drink can and pour it without difficulty. Education OT Patient Education: Exercise program, Purpose of tx/functional activities Teaching Recipient: Patient Teaching Methods: Demonstration Response to Teaching: Return Demonstration OT Short Term Goals Short Term Goals 1=Demonstrate adherence to instructed precautions during ADL tasks. 2=Patient will verbalize/demonstrate understanding of assistive devices/ modifications for ADL. 3=Patient will improve strength/tolerance for activity to enable patient to perform ADL's. OT Supervisor [place] Goals Skilled Nursing Goals Time Frame: Jul 17, 2016 Eating (FIM): 6 Eating (QC): 6 Oral Hygiene (QC): 6 Grooming(FIM): 6 Bathing(FIM): 5 Upper Body Dressing(FIM): 5 Lower Body Dressing(FIM): 5 Toileting(FIM): 6 Toilet/Commode Transfer(FIM): 6 Toilet/Commode Transfer (QC): 5 Shower Transfer(FIM): 5 Additional Goals: 2-Verbalize Understanding, 3-ImproveStrength/Aris 1=Demonstrate adherence to instructed precautions during ADL tasks. 2=Patient will verbalize/demonstrate understanding of assistive devices/ modifications for ADL. 3=Patient will improve strength/tolerance for activity to enable patient to perform ADL's. OT Education/Plan Problem List/Assessment Pt would benefit from skilled OT to increase his indep in basic self care to allow him to safely return to his home after hospitalization, rib fx, chronic back and leg pain Discharge Recommendations Plan/Recommendations: Continue POC Treatment Plan/Plan of Care Patient would benefit from OT for education, treatment and training to promote independence in ADL's, mobility, safety and/or upper extremity function for ADL' s. Plan of Care: ADL Retraining, Functional Mobility, UE Funct Exercise/Act, UE Neuromus Re-Ed/Coord Treatment Duration: Jul 17, 2016 Visits Per Week: 5 Agreement: Yes Rehab Potential: Good Time/GCodes Start Time: 11:41 Stop Time: 11:59 Total Time Billed (hr/min): 18 Billed Treatment Time visit, 18 minutes exercise NICO CHIRINOS OT Jul 06, 2016 13:16
[2016-07-06 15:45] VITALS: BP 107/66
[2016-07-07] VITALS: BP 105/55
[2016-07-07 04:43] LABS: BASOPHILS % (AUTO) 1 % (0-10); EOSINOPHILS # (AUTO) 0.3 10^3/uL (0.0-0.3); EOSINOPHILS % (AUTO) 4 % (0-10); LYMPHOCYTES # (AUTO) 1.1 X 10^3 (1.0-4.0); LYMPHOCYTES % (AUTO) 15 % (12-44); MEAN CORPUSCULAR HEMOGLOBIN 27 PG (25-34); MEAN CORPUSCULAR HGB CONC 31 G/DL (32-36); MEAN CORPUSCULAR VOLUME 86 FL (80-99); MEAN PLATELET VOLUME 8.2 FL (7.4-10.4); MONOCYTES # (AUTO) 0.7 X 10^3 (0.0-1.0); MONOCYTES % (AUTO) 9 % (0-12); NEUTROPHILS # (AUTO) 5.3 X 10^3 (1.8-7.8); NEUTROPHILS % (AUTO) 72 % (42-75); PLATELET COUNT 440 10^3/uL (130-400); RED BLOOD COUNT 3.08 10^6/uL (4.35-5.85); RED CELL DISTRIBUTION WIDTH 14.5 % (10.0-14.5); WHITE BLOOD COUNT 7.4 10^3/uL (4.3-11.0)
[2016-07-07 05:07] LABS: ALANINE AMINOTRANSFERASE 122 U/L (0-55); ANION GAP 9 MMOL/L (5-14); ASPARTATE AMINO TRANSFERASE 90 U/L (5-34); BILIRUBIN,TOTAL 0.7 MG/DL (0.1-1.0); BLOOD UREA NITROGEN 16 MG/DL (7-18); BUN/CREATININE RATIO 20; CALCIUM 8.4 MG/DL (8.5-10.1); CARBON DIOXIDE 22 MMOL/L (21-32); CHLORIDE 105 MMOL/L (98-107); CREATININE SERUM 0.79 MG/DL (0.60-1.30); GFR ESTIMATED > 60; GLUCOSE 121 MG/DL (70-105); POTASSIUM 3.5 MMOL/L (3.6-5.0); SODIUM 136 MMOL/L (135-145)
[2016-07-07] MEDS: inSUlin (REGULAR) HUMAN 1 UNIT/0.01 ML (CHARGE PER UNIT) SC SCH ×3 (05:25→14:25)
--- NOTE | 2016-07-07 07:16 | Pulmonary Progress Note ---
Subjective Subjective/Events-last exam No complications noted. Exam Exam Vital Signs Date Time Temp Pulse Resp B/P Pulse Ox O2 Delivery O2 Flow Rate FiO2 07/07/16 00:00 98.8 75 18 105/55 95 Nasal Cannula 1.00 07/06/16 20:30 Nasal Cannula 1.00 07/06/16 19:31 93 Nasal Cannula 1.00 07/06/16 15:45 98.9 81 20 107/66 93 Nasal Cannula 1.00 07/06/16 08:05 98.5 76 24 124/58 95 Nasal Cannula 2.00 07/06/16 08:00 93 Nasal Cannula 1.00 I & O 07/07/16 07:00 Intake Total 1195 ml Output Total 1100 ml Balance 95 ml General Appearance: No Apparent Distress WD/WN HEENT: PERRL/EOMI Respiratory: Chest Non Tender No Accessory Muscle Use No Respiratory Distress Gastrointestinal: normal bowel sounds non tender soft no organomegaly Neurologic/Psychiatric: Alert Skin: Normal Color Warm/Dry Lymphatic: No Adenopathy Results Lab Laboratory Tests 07/06/16 04:08 07/07/16 04:30 Assessment/Plan Assessment/Plan Trauma - Same level Fall -- Rib fracture 8,9, and 10 with atelectasis -IS -increase activity Splenic Laceration with intraperitoneal blood s/p embolization per radiology -monitor Bilateral carotid stenosis CHF EF 35% Anemia secondary to splenic lac - monitor H/H vertigo DM with neuropathy BINA CARREON DO Jul 07, 2016 07:16
[2016-07-07 08:00] VITALS: BP 101/64
[2016-07-07] MEDS: morphine ER 15 MG (MS CONTIN) TAB PO SCH (08:04)
[2016-07-07] MEDS: meTOprolol TARTRATE 25 MG (LOPRESSOR) TABLET PO SCH (08:04)
[2016-07-07] MEDS: LUBIPROSTONE 24 MCG CAP (AMITIZA) NON-FORMULARY PO SCH (08:05)
--- NOTE | 2016-07-07 09:14 | Discharge Summary-Hospitalist ---
Diagnosis/Chief Complaint Date of Admission Jul 03, 2016 at 10:44 Date of Discharge Discharge Diagnosis Assessment: Fall with splenic laceration s/p embolization MUGA scan negative Cognitive deficit with live-in care takers CT head negative likely this slowed cognition is baseline CHF EF of 35% Rib fractures 8-10 with ATX Anemia due to splenic laceration w/iron deficiency DM CAD Leukocytosis Hypokalemia replacing HTN Low grade fever Weakness Patient had no events over the weekend Low-grade fever persist Still in a lot of pain so will restart his home medication extended release morphine Loose stools persist low potassium noted so we'll supplement Overall doing much better and getting around better so will plan on disposition in the next day or two AFVSS, pleasant, oriented 3, improved cognition Regular rate and rhythm, clear to auscultation bilaterally but decreased breath sounds in the bases No edema Laboratory Tests 07/06/16 04:08 Assessment: Fall with splenic laceration s/p embolization MUGA scan negative Cognitive deficit with live-in care takers CT head negative likely this slowed cognition is baseline CHF EF of 35% Rib fractures 8-10 with ATX Anemia due to splenic laceration DM CAD Leukocytosis Hypokalemia replacing HTN Low grade fever Weakness Check Iron level and give Venofer empirically due to iron loss from acute blood loss Replace Potassium Social service consult for disposition Discontinue Clinimix Restart home meds morphine Reason Hospital Visit/Course No fever, pleasant, oriented 3, chronically ill Regular rate and rhythm, clear to all sedation bilaterally No edema Hospital course: Patient had an uneventful swing bed course he was placed on swing bed for recuperation due to overall debility and fall prevention. He did receive benefit for iron infusions with good results. Bowels returned back to his normal and patient was restarted on home pain medication. Daughter was very interested in home healthcare and patient declines skilled nursing care so that will be arranged. Home O2 evaluation was completed and will be ordered if meets criteria. Overall prognosis guarded considering his comorbidities and overall debility and I would recommend skilled therapy but he insisted on going home. Discharge Summary Discharge Physical Examination Allergies: Coded Allergies: No Known Drug Allergies (Verified , 07/03/16) Vitals & I&Os Vital Signs Date Time Temp Pulse Resp B/P Pulse Ox O2 Delivery O2 Flow Rate FiO2 07/07/16 00:00 98.8 75 18 105/55 95 Nasal Cannula 1.00 Hospital Course Labs (last 24 hrs) Laboratory Tests 07/06/16 12:05: Glucometer 134H 07/06/16 19:01: Glucometer 203H 07/07/16 00:55: Glucometer 122H 07/07/16 04:30: Alanine Aminotransferase (ALT/SGPT) 122H, Albumin 3.0L, Alkaline Phosphatase 91 , Anion Gap 9, Aspartate Amino Transf (AST/SGOT) 90H, BUN/Creatinine Ratio 20, Basophils # (Auto) 0.0, Basophils (%) (Auto) 1, Blood Urea Nitrogen 16, Calcium Level 8.4L, Carbon Dioxide Level 22, Chloride Level 105, Creatinine 0.79, Eosinophils # (Auto) 0.3, Eosinophils (%) (Auto) 4, Estimat Glomerular Filtration Rate > 60, Glucose Level 121H, Hematocrit 27L, Hemoglobin 8.3L, Lymphocytes # (Auto) 1.1, Lymphocytes (%) (Auto) 15, Mean Corpuscular Hemoglobin 27, Mean Corpuscular Hemoglobin Concent 31L, Mean Corpuscular Volume 86, Mean Platelet Volume 8.2, Monocytes # (Auto) 0.7, Monocytes (%) (Auto) 9, Neutrophils # (Auto) 5.3, Neutrophils (%) (Auto) 72, Platelet Count 440H, Potassium Level 3.5L, Red Blood Count 3.08L, Red Cell Distribution Width 14.5, Sodium Level 136, Total Bilirubin 0.7, Total Protein 6.0L, White Blood Count 7.4 Pending Labs Laboratory Tests 07/07/16 04:30: Alanine Aminotransferase (ALT/SGPT) 122, Albumin 3.0, Alkaline Phosphatase 91, Anion Gap 9, Aspartate Amino Transf (AST/SGOT) 90, BUN/Creatinine Ratio 20, Basophils # (Auto) 0.0, Basophils (%) (Auto) 1, Blood Urea Nitrogen 16, Calcium Level 8.4, Carbon Dioxide Level 22, Chloride Level 105, Creatinine 0.79, Eosinophils # (Auto) 0.3, Eosinophils (%) (Auto) 4, Estimat Glomerular Filtration Rate > 60, Glucose Level 121, Hematocrit 27, Hemoglobin 8.3, Lymphocytes # (Auto) 1.1, Lymphocytes (%) (Auto) 15, Mean Corpuscular Hemoglobin 27, Mean Corpuscular Hemoglobin Concent 31, Mean Corpuscular Volume 86, Mean Platelet Volume 8.2, Monocytes # (Auto) 0.7, Monocytes (%) (Auto) 9, Neutrophils # (Auto) 5.3, Neutrophils (%) (Auto) 72, Platelet Count 440, Potassium Level 3.5, Red Blood Count 3.08, Red Cell Distribution Width 14.5, Sodium Level 136, Total Bilirubin 0.7, Total Protein 6.0, White Blood Count 7.4 Discharge Home Medications: Active Scripts Active Reported Morphine Sulfate 15 Mg Tablet 15 Mg PO Q6H PRN Morphine Sulfate ER (Morphine Sulfate) 60 Mg Tablet.er 60 Mg PO BID Amitiza (Lubiprostone) 24 Mcg Capsule 24 Mcg PO BID Instructions to patient/family Please see electonic discharge instructions given to patient. CATHIE PEARL DO Jul 07, 2016 09:14
[2016-07-07] MEDS ORDERED: KCL 20 MEQ TAB (K-DUR) PO NR (09:15)
[2016-07-07] MEDS ORDERED: MORP15TA PO (09:16)
[2016-07-07] MEDS ORDERED: MORP60TA52 PO (09:16)
--- NOTE | 2016-07-07 09:19 | Discharge Inst-Home Health ---
Discharge Inst-to Home Health Patient Instructions Patient Instructions/FollowUp: Dr Rodriguez in 1 week Patient Problems: Falls Spleneic laceration Chronic pain VIA [place], [place] DISCHARGE ORDERS Allergies: Coded Allergies: No Known Drug Allergies (Verified , 07/03/16) Height (Feet): 6 Height (Inches): 0.00 Weight (Pounds): 225 Weight (Ounces): 4.8 Home Health Need/Face to Face Reason Pt Homebound weakness, fall risk I Have Seen Pt [id number]: Yes Date of Face to Face: Jul 07, 2016 Discharged To: Home Diagnosis/Conditions HH Order: med administration Fall prevention Consult/Follow Up/New Order *I certify that based on my findings, the following services are medically necessary Home Health Services: Services: Nursing Services, Transportation Attendant-Evaluate & Treat, Physical Therapy-Evaluate & Treat, Speech Language-Evaluate & Treat My clinical findings support the need for the above services; see Diagnosis. Dicharge Diet: No Restrictions Daily Activity as Tolerated: Yes Discharge Medications: New, Converted, or Re-newed RX: RX on Chart I certify that this patient is under my care and that I, a nurse practitioner or a physician; a treasury assistant working with me, had a face to face encounter that - meets the physician face to face encounter requirements with this patient as dated. CATHIE PEARL DO Jul 07, 2016 09:19
--- NOTE | 2016-07-07 10:59 | Therapy Team Discharge Summary ---
Therapy Discharge Summary Discharge Recommendations Date of Discharge Physical Therapy Patient declined PT intervention on this date. He will dismiss to home with family and CGA to SBA LOF with gross motor skills. Patient continues to c/o left rib pain with minimal activity. Goals not attained. Home Health intervention is recommended to follow (PT) to ensure improvement with gross motor skills and pulmonary function. Patient on this date qualifies for O2 per RT. PT Mcc Goals Foreign Student Adviser Goals PT Mcc Goals Time Frame: Jul 25, 2016 Transfers (B,C,W/C) (FIM): 6 Sit to Lying (QC): 6 Lying-Sitting on Side/Bed(QC): 6 Sit to Stand (QC): 6 Chair/Rjc-gh-Jgtxx Xfer(QC): 6 Does the Patient Walk: Yes Gait (FIM): 6 Gait distance (FIM): 3=150 ft Distance: 300 ft Walk 50ft with 2 Turns (QC): 6 Walk 150 ft (QC): 6 Gait Level of Assist: 6 Gait Assistive Device: FWW Does the Pt use WC or Scooter?: No OT Foreign Student Adviser Goals Foreign Student Adviser Goals Time Frame: Jul 17, 2016 Eating (FIM): 6 Eating (QC): 6 Oral Hygiene (QC): 6 Grooming(FIM): 6 Bathing(FIM): 5 Upper Body Dressing(FIM): 5 Lower Body Dressing(FIM): 5 Toileting(FIM): 6 Toilet/Commode Transfer(FIM): 6 Toilet/Commode Transfer (QC): 5 Shower Transfer(FIM): 5 Additional Goals: 2-Verbalize Understanding, 3-ImproveStrength/Aris 1=Demonstrate adherence to instructed precautions during ADL tasks. 2=Patient will verbalize/demonstrate understanding of assistive devices/ modifications for ADL. 3=Patient will improve strength/tolerance for activity to enable patient to perform ADL's. SHLOMO ESPAÑA PT Jul 07, 2016 10:59
--- NOTE | 2016-07-07 13:06 | Occupational Ther Daily Note ---
OT Current Status-Daily Note Subjective Pt seen in room, up in recliner, reluctantly agreeable to OT. No pain mentioned. O2 at 2 L/min in place Appearance Alert, cooperative Mental Status/Objective Functional [place] Measure 0=Not Assessed/NA 4=Minimal Assistance 1=Total Assistance 5=Supervision or Setup 2=Maximal Assistance 6=Modified [place] 3=Moderate Assistance 7=Complete [place] ADL-Treatment Functional [place] Measure 0=Not Assessed/NA 4=Minimal Assistance 1=Total Assistance 5=Supervision or Setup 2=Maximal Assistance 6=Modified [place] 3=Moderate Assistance 7=Complete IndependenceIRFPAI Quality Coding Scale 6 Independent with activity with or without an assistive device 5 Patient requires set up or clean up by helper. Patient completes activity by themselves 4 Supervision or touching assist (CGA). [place] provide cues , steadying assist 3 The helper provides less than half the effort to complete the activity 2 The helper provides more than half the effort to complete the activity 1 Dependent. The helper does all the effort to complete an activity 7 Patient refused to complete or attempt activity 9 The patient did not perform the activity before the current illness or injury 88 Not attempted due to Medical conditions or safety concerns Eating (FIM): 6 (Pt report he doesn't need help opening packages or cutting food) Eating (QC): 6 Grooming (FIM): 5 (Setup to brush teeth (dentures)) Oral Hygiene (QC): 5 Toileting Hygiene (QC): 4 (Per pt report. he is able to manage clothing. SBA for clothing management) Upper Body (FIM): 5 (setup) Lower Body Dressing (FIM): 4 (Reluctantly able to get pants on over feet, pull pants up. Unable to manage slipper socks. Sit to stand with difficulty but able to do it., FWW) Toileting (FIM): 5 (Pt report on managing hygiene. He is able to get pants up and down with SBA, FWW) Toilet/Commode Transfer (FIM): 5 (Tall toilet, grab bar, FWW, SBA) Toilet Transfer (QC): 4 (SBA) Other Treatment Pt left up in recliner, all needs met, O2 in place. OT Short Term Goals Short Term Goals 1=Demonstrate adherence to instructed precautions during ADL tasks. 2=Patient will verbalize/demonstrate understanding of assistive devices/ modifications for ADL. 3=Patient will improve strength/tolerance for activity to enable patient to perform ADL's. OT Care Home Goals Care Home Goals Time Frame: Jul 17, 2016 Eating (FIM): 6 (met) Eating (QC): 6 (met) Oral Hygiene (QC): 6 (not met setup) Grooming(FIM): 6 (not met. setup) Bathing(FIM): 5 (not tested) Upper Body Dressing(FIM): 5 (met) Lower Body Dressing(FIM): 5 (not met. help with socks) Toileting(FIM): 6 (not met. SBA) Toilet/Commode Transfer(FIM): 6 (not met. SBA) Toilet/Commode Transfer (QC): 5 (not met SBA) Shower Transfer(FIM): 5 (not tested) Additional Goals: 2-Verbalize Understanding, 3-ImproveStrength/Aris 1=Demonstrate adherence to instructed precautions during ADL tasks. 2=Patient will verbalize/demonstrate understanding of assistive devices/ modifications for ADL. 3=Patient will improve strength/tolerance for activity to enable patient to perform ADL's. OT Education/Plan Problem List/Assessment Pt would benefit from skilled OT to increase his indep in basic self care to allow him to safely return to his home after hospitalization, rib fx, chronic back and leg pain Discharge Recommendations Plan/Recommendations: Discontinue OT (see tx plan for goals met) Treatment Plan/Plan of Care Patient would benefit from OT for education, treatment and training to promote independence in ADL's, mobility, safety and/or upper extremity function for ADL' s. Plan of Care: ADL Retraining, Functional Mobility, UE Funct Exercise/Act, UE Neuromus Re-Ed/Coord Treatment Duration: Jul 17, 2016 Visits Per Week: 5 Agreement: Yes Rehab Potential: Good Time/GCodes Start Time: 11:20 Stop Time: 12:01 Total Time Billed (hr/min): 41 Billed Treatment Time visit, 41 minutes ADL NICO CHIRINOS OT Jul 07, 2016 13:06
--- NOTE | 2016-07-07 13:13 | Therapy Team Discharge Summary ---
Therapy Discharge Summary Discharge Recommendations Date of Discharge July 07, 2016 Therapy D/C Recommendations: Occupational Therapy Home Care Occupational Therapy Pt was seen for skilled OT to increase his independence in basic self care. On admission he needed CGA with toileting and toilet transfers, supervision with grooming and setup with eating. By discharge he was toileting with SBA, FWW, grab bars, dressed min assist lower body (help with socks) and setup upper body , groomed with setup and ate modified indep. He is being discharged to his granddaughter's home. Recommend home health OT, especially for bathrooms safety. See tx plan for goals met. DC OT PT Residential Goals Residential Goals PT Examining Officer Goals Time Frame: Jul 25, 2016 Transfers (B,C,W/C) (FIM): 6 Sit to Lying (QC): 6 Lying-Sitting on Side/Bed(QC): 6 Sit to Stand (QC): 6 Chair/Rmi-jz-Cpdnd Xfer(QC): 6 Does the Patient Walk: Yes Gait (FIM): 6 Gait distance (FIM): 3=150 ft Distance: 300 ft Walk 50ft with 2 Turns (QC): 6 Walk 150 ft (QC): 6 Gait Level of Assist: 6 Gait Assistive Device: FWW Does the Pt use WC or Scooter?: No OT Examining Officer Goals Examining Officer Goals Time Frame: Jul 17, 2016 Eating (FIM): 6 (met) Eating (QC): 6 (met) Oral Hygiene (QC): 6 (not met setup) Grooming(FIM): 6 (not met. setup) Bathing(FIM): 5 (not tested) Upper Body Dressing(FIM): 5 (met) Lower Body Dressing(FIM): 5 (not met. help with socks) Toileting(FIM): 6 (not met. SBA) Toilet/Commode Transfer(FIM): 6 (not met. SBA) Toilet/Commode Transfer (QC): 5 (not met SBA) Shower Transfer(FIM): 5 (not tested) Additional Goals: 2-Verbalize Understanding, 3-ImproveStrength/Aris 1=Demonstrate adherence to instructed precautions during ADL tasks. 2=Patient will verbalize/demonstrate understanding of assistive devices/ modifications for ADL. 3=Patient will improve strength/tolerance for activity to enable patient to perform ADL's. NICO CHIRINOS OT Jul 07, 2016 13:13
[2016-07-07 17:00] VITALS: BP 158/88
== END 2016-07-07 17:00 | disposition home health service (06) | DRG 948 ==
LOC: 4TH 10:44
PROVIDERS: ADMIT Internal Medicine; ATTEND Internal Medicine
DX: R53.81 Other malaise (principal); S36.039D Unspecified laceration of spleen, subsequent encounter; S22.42XD Multiple fractures of ribs, left side, subsequent encounter for fracture with routine healing; F09 Unspecified mental disorder due to known physiological condition; I25.10 Atherosclerotic heart disease of native coronary artery without angina pectoris; E11.51 Type 2 diabetes mellitus with diabetic peripheral angiopathy without gangrene; E11.42 Type 2 diabetes mellitus with diabetic polyneuropathy; I11.0 Hypertensive heart disease with heart failure; I50.22 Chronic systolic (congestive) heart failure; D50.0 Iron deficiency anemia secondary to blood loss (chronic); E87.6 Hypokalemia; R50.9 Fever, unspecified; F32.9 Major depressive disorder, single episode, unspecified; M19.90 Unspecified osteoarthritis, unspecified site; I65.23 Occlusion and stenosis of bilateral carotid arteries; I25.5 Ischemic cardiomyopathy; W18.2XXD Fall in (into) shower or empty bathtub, subsequent encounter; Y92.002 Bathroom of unspecified non-institutional (private) residence as the place of occurrence of the external cause; Y99.8 Other external cause status; Z95.5 Presence of coronary angioplasty implant and graft; Z95.820 Peripheral vascular angioplasty status with implants and grafts
CPT/HCPCS: 36415; 80048; 80053; 82962; 83540; 85025; 85027; 94664; 94760; 94761

== ENCOUNTER 2016-07-13 15:45 | Observation (INO) | payer MEDICARE, MEDICAID ==
[~2016-07-13] VITALS: Ht 182.9 cm; Wt 99.8 kg
[~2016-07-13 15:45] MED LIST changes: -ONDANSETRON 4 MG/2 ML (SDV) Z0FRAN IVP PRN; -POTASSIUM CL 10MEQ/50ML IVPB 50 ML IV SCH
--- NOTE | 2016-07-13 15:54 | ED General ---
General Chief Complaint: Altered Mental Status Stated Complaint: SOA Source of Information: Patient Exam Limitations: No Limitations History of Present Illness Time Seen by Provider: 15:51 Initial Comments To ER with reports of shortness of breath and altered mental status. He was referred to the emergency room by home health. He was discharged from the hospital on 07/07/16 to live with his daughter here in [place] following admission for minimally displaced left rib fractures 8 through 12 1 laceration which required interventional radiology for embolization of splenic arteries near the laceration. Home health presented to his house today to check on him and noticed him to be shaking, short of breath and more confused than over the past few days. Granddaughter is present in the emergency room, she is very pleasant and states that he has fallen twice today because of weakness. Timing/Duration: 1-2 Days Severity: Moderate Allergies and Home Medications Allergies Coded Allergies: No Known Drug Allergies (Verified , 07/03/16) Home Medications Citalopram Hydrobromide 10 Mg Tablet 10 MG PO DAILY (Reported) Fenofibrate Nanocrystallized 145 Mg Tablet 145 MG PO DAILY (Reported) Lubiprostone 24 Mcg Capsule 24 MCG PO BID (Reported) Metformin HCl 500 Mg Tablet 500 MG PO BID (Reported) Morphine Sulfate 60 Mg Tablet.er #60 60 MG PO BID Prescribed by: CATHIE PEARL on 07/07/16 09 Morphine Sulfate 15 Mg Tablet #60 15 MG PO Q6H PRN PRN PAIN Prescribed by: CATHIE PEARL on 07/07/16 0916 Pregabalin 225 Mg Capsule 225 MG PO BID (Reported) Sucralfate 1 Gm Tablet 1 GM PO BID (Reported) Constitutional: see HPI EENTM: see HPI Respiratory: see HPI cough short of breath Cardiovascular: no symptoms reported Genitourinary: no symptoms reported Musculoskeletal: no symptoms reported Skin: no symptoms reported Psychiatric/Neurological: No Symptoms Reported Hematologic/Lymphatic: No Symptoms Reported Immunological/Allergic: no symptoms reported Past Xpubppq-Zjhkrt-Bfxegv Hx Patient Social History Alcohol Use: Denies Use Recreational Drug Use: No Smoking Status: Former Smoker Type Used: Cigarettes Former Smoker/When Quit: Oct 07, 2004 Recent Hopitalizations: No Physical Abuse Screen: No Sexual Abuse: No Immunizations Up To Date Date of Pneumonia Vaccine: Oct 12, 2011 Date of Influenza Vaccine: Mar 21, 2016 Seasonal Allergies Seasonal Allergies: No Surgeries HX Surgeries: Yes Surgeries: Coronary Stent, Gallbladder, Orthopedic, Vascular Surgery Respiratory Hx Respiratory Disorders: No Cardiovascular Hx Cardiac Disorders: Yes Cardiac Disorders: Coronary Artery Disease, Heart Attack, Hypertension, Peripheral Vascular Neurological Hx Neurological Disorders: Yes Neurological Disorders: Neuropathy Reproductive System Hx Reproductive Disorders: No Sexually Transmitted Disease: No Genitourinary Hx Genitourinary Disorders: Yes Genitourinary Disorders: UTI-Chronic Gastrointestinal Hx Gastrointestinal Disorders: No Musculoskeletal Hx Musculoskeletal Disorders: Yes Musculoskeletal Disorders: Arthritis Endocrine Hx Endocrine Disorders: Yes Endocrine Disorders: Diabetes, Non-Insulin dep HEENT HX ENT Disorders: No Cancer Hx Cancer: No Psychosocial Hx Psychiatric Problems: Yes Behavioral Health Disorders: Depression Integumentary HX Skin/Integumentary Disorder: No Blood Transfusions Hx Blood Disorders: No Adverse Reaction to a Blood Tr: No Family Medical History Significant Family History: No Pertinent Family Hx, Cancer, Diabetes Family Medial History: Colon cancer G8 BROTHER, Onset:55 FHx: brain tumor G8 SISTER Physical Exam Vital Signs Vital Sign - Last 12Hours 07/13/16 15:48 Temp 99.5 Pulse 83 Resp 18 B/P 95/65 Pulse Ox 92 O2 Delivery Nasal Cannula O2 Flow Rate 2 Capillary Refill : General Appearance: No Apparent Distress WD/WN Chronically ill Eyes: Bilateral Eye EOMI, Bilateral Eye Normal Inspection, Bilateral Eye PERRL HEENT: PERRL/EOMI TMs Normal Neck: Full Range of Motion Normal Inspection Respiratory: No Accessory Muscle Use No Respiratory Distress Decreased Breath Sounds Cardiovascular: Regular Rate, Rhythm Normal Peripheral Pulses Gastrointestinal: Normal Bowel Sounds Soft Distended Extremity: Normal Inspection Other (+2 pitting edema bilateral lower cavity) Neurologic/Psychiatric: Alert Other (confused conversation, states that he hurts everywhere.) Skin: Normal Color Warm/Dry Progress/Results/Core Measures Results/Orders Lab Results Laboratory Tests Test 07/13/16 16:08 Range/Units Alanine Aminotransferase (ALT/SGPT) 38 0-55 U/L Albumin 2.9 L 3.2-4.5 G/DL Alkaline Phosphatase 86 40-136 U/L Anion Gap 7 5-14 MMOL/L Aspartate Amino Transf (AST/SGOT) 26 5-34 U/L BUN/Creatinine Ratio 12 Basophils # (Auto) 0.0 0.0-0.1 10^3/uL Basophils (%) (Auto) 1 0-10 % Blood Urea Nitrogen 12 7-18 MG/DL Calcium Level 8.4 L 8.5-10.1 MG/DL Carbon Dioxide Level 28 21-32 MMOL/L Chloride Level 98 98-107 MMOL/L Creatinine 1.01 0.60-1.30 MG/DL Eosinophils # (Auto) 0.2 0.0-0.3 10^3/uL Eosinophils (%) (Auto) 3 0-10 % Estimat Glomerular Filtration Rate > 60 Glucose Level 140 H 70-105 MG/DL Hematocrit 28 L 40-54 % Hemoglobin 8.7 L 13.3-17.7 G/DL Lymphocytes # (Auto) 1.2 1.0-4.0 X 10^3 Lymphocytes (%) (Auto) 16 12-44 % Mean Corpuscular Hemoglobin 27 25-34 PG Mean Corpuscular Hemoglobin Concent 31 L 32-36 G/DL Mean Corpuscular Volume 86 80-99 FL Mean Platelet Volume 8.2 7.4-10.4 FL Monocytes # (Auto) 0.7 0.0-1.0 X 10^3 Monocytes (%) (Auto) 10 0-12 % Neutrophils # (Auto) 5.1 1.8-7.8 X 10^3 Neutrophils (%) (Auto) 71 42-75 % Platelet Count 462 H 130-400 10^3/uL Potassium Level 3.5 L 3.6-5.0 MMOL/L Red Blood Count 3.23 L 4.35-5.85 10^6/uL Red Cell Distribution Width 14.4 10.0-14.5 % Sodium Level 133 L 135-145 MMOL/L Total Bilirubin 0.8 0.1-1.0 MG/DL Total Protein 6.2 L 6.4-8.2 G/DL Urine Bacteria NEGATIVE /HPF Urine Bilirubin NEGATIVE NEGATIVE Urine Casts NONE /LPF Urine Clarity CLEAR Urine Color YELLOW Urine Crystals NONE /LPF Urine Culture Indicated NO Urine Glucose (UA) NEGATIVE NEGATIVE Urine Ketones NEGATIVE NEGATIVE Urine Leukocyte Esterase NEGATIVE NEGATIVE Urine Mucus MODERATE H /LPF Urine Nitrite NEGATIVE NEGATIVE Urine Protein NEGATIVE NEGATIVE Urine RBC RARE /HPF Urine RBC (Auto) 1+ H NEGATIVE Urine Specific [place] 1.015 L 1.016-1.022 Urine Urobilinogen 8 H NORMAL MG/DL Urine WBC 2-5 /HPF Urine pH 6 5-9 White Blood Count 7.2 4.3-11.0 10^3/uL My Orders Orders-MELVI BOOTHE APRN Cbc With Automated Diff (07/13/16 16:01) Comprehensive Metabolic Panel (07/13/16 16:01) Ua Culture If Indicated (07/13/16 16:01) Saline Lock/Iv-Start (07/13/16 16:01) Chest 1 View, Ap/Pa Only (07/13/16 16:01) Ct Abdomen/Pelvis W (07/13/16 16:01) Iohexol Injection (Omnipaque 350 Mg/Ml 1 (07/13/16 16:15) Ns (Ivpb) (Sodium Chloride 0.9% Ivpb Bag (07/13/16 16:15) Medications Given in ED Current Medications Medications Dose Ordered Sig/Max Route Start Time Stop Time Status Last Admin Dose Admin Iohexol 100 ml ONCE ONCE IV 07/13/16 16:15 07/13/16 16:19 DC 07/13/16 16:35 100 ML Sodium Chloride 100 ml ONCE ONCE IV 07/13/16 16:15 07/13/16 16:19 DC 07/13/16 16:35 100 ML Vital Signs/I&O Vital Sign - Last 12Hours 07/13/16 15:48 Temp 99.5 Pulse 83 Resp 18 B/P 95/65 Pulse Ox 92 O2 Delivery Nasal Cannula O2 Flow Rate 2 Diagnostic Imaging Diagonstic Imaging: CT Comments NAME: SHAYLA FUNK [facility] REC#: [id number] PT STATUS: REG ER : 1940 PHYSICIAN: MELVI BOOTHE APRN ADMIT DATE: 07/13/16/ER Draft Date of Exam:07/13/16 CT ABDOMEN/PELVIS W PROCEDURE: CT abdomen and pelvis with contrast. TECHNIQUE: Multiple contiguous axial images were obtained through the abdomen and pelvis after administration of intravenous contrast. INDICATION: Fell, left flank pain. FINDINGS: The CT abdomen/pelvis exam performed on 06/29/2016 noted a splenic laceration with a moderate amount of hematoma formation about the spleen as well as active bleeding. Reportedly, in the interval since the previous exam, the patient has undergone an embolectomy of the spleen. On this study however, the spleen does seem smaller and more irregular and the hemorrhage/hematoma about the spleen has increased in size. On the prior exam, the perisplenic hemorrhage measured approximately 2.8 cm in maximum dimension. On this study, the hemorrhage is now 5.5 cm. There is also increased density within the hemorrhage indicating that there is active bleeding. The embolectomy coil is seen along the anterior aspect of the spleen. The overall appearance of the abdomen and pelvis itself has not changed significantly. The small perihepatic fluid collection seen previously has resolved, however. The multiple left-sided rib fractures and the fractures of the transverse processes of L2 and L3 on the left seen previously are again evident and not significantly changed. However, there has been an increase in the atelectasis/infiltrate in both lung bases since the prior exam and there is now left-sided pleural effusion measuring nearly 4 cm in depth. There is no sign of a pneumothorax on the left. IMPRESSION: 1. The appearance of the abdomen and pelvis has worsened since the prior study as the spleen does seem smaller and more irregular than on the previous exam. The amount of hemorrhage/hematoma formation about the spleen has also increased and there does appear to be active bleeding. 2. There is no acute abnormality of the abdomen or pelvis noted, otherwise. 3. There has been an increase in the atelectasis/infiltrate in both lung bases and there is now a moderate left pleural effusion present as well. 4. These results were discussed with Melvi Boothe APRN, in the ER. CRITICAL FINDING Dictated on workstation # [id number] Dict: 07/13/16 1704 Trans: 07/13/16 1723 [id number] Interpreted by: MARY FOX MD Electronically signed by: Departure Communication Time/Spoke to Admitting Phy: 17:[address] Hall who agrees to admit and consult surgery Time/Spoke to Consulting Physi: 17:17 Communication/Consulting Spoke with Dr. Garcia from surgery, he will be on consult. Impression Impression: Primary Impression: Rib fractures Qualified Code: S22.42XA - Multiple fractures of ribs, left side, initial encounter for closed fracture Additional Impression: Spleen laceration Qualified Code: S36.039A - Unspecified laceration of spleen, initial encounter Disposition: ADMITTED INPATIENT Condition: Stable Decision to Admit Reason: Admit from ER (General) Decision to Admit/Date: Jul 13, 2016 Time/Decision to Admit Time: 17:18 Departure-Patient Inst. Referrals: WILLIAMS,F A MD (PCP/Family) Primary Care Physician MELVI BOOTHE APRN Jul 13, 2016 15:54
[2016-07-13] MEDS ORDERED: CITA10TA7 PO (15:59)
[2016-07-13] MEDS ORDERED: SUCR1TAB PO (15:59)
[2016-07-13] MEDS ORDERED: FENO145T20 PO (15:59)
[2016-07-13] MEDS ORDERED: PREG225C PO (15:59)
[2016-07-13] MEDS ORDERED: METF500T4 PO (16:00)
[2016-07-13] MEDS ORDERED: IOHEXOL 350 MG/ML 100 ML (OMNIPAQUE 350) VIAL IV ONE (16:15)
[2016-07-13] MEDS ORDERED: NS 100 ML (IVPB) BAG IV ONE (16:15)
[2016-07-13 16:19] LABS: BASOPHILS % (AUTO) 1 % (0-10); EOSINOPHILS # (AUTO) 0.2 10^3/uL (0.0-0.3); EOSINOPHILS % (AUTO) 3 % (0-10); LYMPHOCYTES # (AUTO) 1.2 X 10^3 (1.0-4.0); LYMPHOCYTES % (AUTO) 16 % (12-44); MEAN CORPUSCULAR HEMOGLOBIN 27 PG (25-34); MEAN CORPUSCULAR HGB CONC 31 G/DL (32-36); MEAN CORPUSCULAR VOLUME 86 FL (80-99); MEAN PLATELET VOLUME 8.2 FL (7.4-10.4); MONOCYTES # (AUTO) 0.7 X 10^3 (0.0-1.0); MONOCYTES % (AUTO) 10 % (0-12); NEUTROPHILS # (AUTO) 5.1 X 10^3 (1.8-7.8); NEUTROPHILS % (AUTO) 71 % (42-75); PLATELET COUNT 462 10^3/uL (130-400); RED BLOOD COUNT 3.23 10^6/uL (4.35-5.85); RED CELL DISTRIBUTION WIDTH 14.4 % (10.0-14.5); WHITE BLOOD COUNT 7.2 10^3/uL (4.3-11.0)
[2016-07-13 16:20] LABS: BILIRUBIN,URINE NEGATIVE (NEGATIVE); KETONES,URINE NEGATIVE (NEGATIVE); LEUKOCYTE ESTERASE ,URINE NEGATIVE (NEGATIVE); NITRITE,URINE NEGATIVE (NEGATIVE); PH,URINE 6 (5-9); PROTEIN,URINE NEGATIVE (NEGATIVE); UROBILINOGEN,URINE 8 MG/DL (NORMAL)
[2016-07-13 16:40] LABS: ALANINE AMINOTRANSFERASE 38 U/L (0-55); ALBUMIN 2.9 G/DL (3.2-4.5); ANION GAP 7 MMOL/L (5-14); ASPARTATE AMINO TRANSFERASE 26 U/L (5-34); BILIRUBIN,TOTAL 0.8 MG/DL (0.1-1.0); BLOOD UREA NITROGEN 12 MG/DL (7-18); BUN/CREATININE RATIO 12; CALCIUM 8.4 MG/DL (8.5-10.1); CARBON DIOXIDE 28 MMOL/L (21-32); CHLORIDE 98 MMOL/L (98-107); CREATININE SERUM 1.01 MG/DL (0.60-1.30); GFR ESTIMATED > 60; GLUCOSE 140 MG/DL (70-105); POTASSIUM 3.5 MMOL/L (3.6-5.0); SODIUM 133 MMOL/L (135-145); TOTAL PROTEIN 6.2 G/DL (6.4-8.2)
--- NOTE | 2016-07-13 17:07 | Diagnostic Imaging Report ---
Portable erect AP chest at 04:44 p.m. INDICATION: Left-sided pain. FINDINGS: The appearance of the chest has worsened since the prior study of 07/03/2016 as the density in the left lung base noted previously has increased. The left hemidiaphragm is now completely obscured. I suspect these findings are due to atelectasis/infiltrate and fluid. The left upper lung and right lung are generally clear. The heart is stable in size. The mediastinum is not widened. The osseous structures show no sign of an acute abnormality. There is some irregularity of the anterior aspect of the left 10th rib however. IMPRESSION: 1. The appearance of the chest has worsened as the atelectasis/infiltrate and fluid in the left lung base seen previously have increased. There is no acute cardiopulmonary abnormality noted otherwise. 2. Reportedly, CT of the abdomen and pelvis is pending for further study. Dictated by: Dictated on workstation # [id number]
--- NOTE | 2016-07-13 17:23 | Diagnostic Imaging Report ---
PROCEDURE: CT abdomen and pelvis with contrast. TECHNIQUE: Multiple contiguous axial images were obtained through the abdomen and pelvis after administration of intravenous contrast. INDICATION: Fell, left flank pain. FINDINGS: The CT abdomen/pelvis exam performed on 06/29/2016 noted a splenic laceration with a moderate amount of hematoma formation about the spleen as well as active bleeding. Reportedly, in the interval since the previous exam, the patient has undergone an embolectomy of the spleen. On this study however, the spleen does seem smaller and more irregular than on the prior exam and the hemorrhage/hematoma about the spleen has increased in size. On the prior exam, the perisplenic hemorrhage measured approximately 2.8 cm in maximum dimension. On this study, the hemorrhage is now 5.5 cm in maximum dimension. There is also increased density within the hemorrhage indicating that there is active bleeding. The embolectomy coil is seen along the anterior aspect of the spleen. The overall appearance of the abdomen and pelvis itself has not changed significantly. The small perihepatic fluid collection seen previously has resolved, however. The multiple left-sided rib fractures and the fractures of the transverse processes of L2 and L3 on the left seen previously are again evident and not significantly changed. However, there has been an increase in the atelectasis/infiltrate in both lung bases since the prior exam and there is now left-sided pleural effusion measuring nearly 4 cm in depth. There is no sign of a pneumothorax on the left. IMPRESSION: 1. The appearance of the abdomen and pelvis has worsened since the prior study as the spleen does seem smaller and more irregular than on the previous exam. The amount of hemorrhage/hematoma formation about the spleen has also increased and there does appear to be active bleeding. 2. There is no acute abnormality of the abdomen or pelvis noted, otherwise. 3. There has been an increase in the atelectasis/infiltrate in both lung bases and there is now a moderate left pleural effusion present as well. 4. These results were discussed with Joni Boothe APRN, in the ER. CRITICAL FINDING Dictated by: Dictated on workstation # [id number]
[2016-07-13] MEDS ORDERED: morphine INJ 4 MG/ML 1 ML (VIAL/SYRINGE) IV PRN (19:30)
[2016-07-13] MEDS ORDERED: NS IV 1000 ML 1,000 ML IV SCH ×2 (19:30→20:15)
[2016-07-13] MEDS ORDERED: CATHETER FLUSH 10 ML SYR IV PRN (19:45)
--- NOTE | 2016-07-13 20:14 | Consultation ---
History of Present Illness History of Present Illness Patient Consulted On(david/time) 07/13/16 20:05 Date of Admission History of Present Illness Surgery asked to consult regarding Splenic Laceration. HPI: Pt presented to ER with reports of shortness of breath and altered mental status. He was referred to the emergency room by home health. He was discharged from the hospital on 07/07/16 to live with his daughter here in [place] following admission for minimally displaced left rib fractures 8 through 12 1 laceration which required interventional radiology for embolization of splenic arteries near the laceration. Home health presented to his house today to check on him and noticed him to be shaking, short of breath and more confused than over the past few days. Granddaughter is present in the emergency room, she is very pleasant and states that he has fallen twice today because of weakness. Pt states he fell on his "ass", but states he did not fall on his left side again. Pain is minimal, he didn't think it has been getting worse. Timing/Duration: 1-2 Days Severity: Moderate Allergies and Home Medications Allergies Coded Allergies: No Known Drug Allergies (Verified , 07/03/16) Home Medications Citalopram Hydrobromide 10 Mg Tablet 10 MG PO DAILY (Reported) Fenofibrate Nanocrystallized 145 Mg Tablet 145 MG PO DAILY (Reported) Lubiprostone 24 Mcg Capsule 24 MCG PO BID (Reported) Metformin HCl 500 Mg Tablet 500 MG PO BID (Reported) Morphine Sulfate 60 Mg Tablet.er #60 60 MG PO BID Prescribed by: CATHIE PEARL on 07/07/16915 Morphine Sulfate 15 Mg Tablet #60 15 MG PO Q6H PRN PRN PAIN Prescribed by: CATHIE PEARL on 07/07/16915 Pregabalin 225 Mg Capsule 225 MG PO BID (Reported) Sucralfate 1 Gm Tablet 1 GM PO BID (Reported) Past [id number] Hx Patient Social History Alcohol Use: Denies Use Recreational Drug Use: No Smoking Status: Former Smoker Former Smoker/When Quit: Oct 07, 2004 Type Used: Cigarettes Recent Foreign Travel: No Contact w/Someone Who Travel: No Recent Infectious Disease Expo: No Recent Hopitalizations: No Physical Abuse Screen: No Sexual Abuse: No Immunizations Up To Date Date of Pneumonia Vaccine: Oct 12, 2011 Date of Influenza Vaccine: Mar 21, 2016 Seasonal Allergies Seasonal Allergies: No Surgeries HX Surgeries: Yes Surgeries: Coronary Stent, Gallbladder, Orthopedic, Vascular Surgery Respiratory Hx Respiratory Disorders: No Cardiovascular Hx Cardiac Disorders: Yes Cardiac Disorders: Coronary Artery Disease, Heart Attack, Hypertension, Peripheral Vascular Neurological Hx Neurological Disorders: Yes Neurological Disorders: Neuropathy Reproductive System Hx Reproductive Disorders: No Sexually Transmitted Disease: No Genitourinary Hx Genitourinary Disorders: Yes Genitourinary Disorders: UTI-Chronic Gastrointestinal Hx Gastrointestinal Disorders: No Musculoskeletal Hx Musculoskeletal Disorders: Yes Musculoskeletal Disorders: Arthritis Endocrine Hx Endocrine Disorders: Yes Endocrine Disorders: Diabetes, Non-Insulin dep HEENT HX ENT Disorders: No Cancer Hx Cancer: No Psychosocial Hx Psychiatric Problems: Yes Behavioral Health Disorders: Depression Integumentary HX Skin/Integumentary Disorder: No Blood Transfusions Hx Blood Disorders: No Adverse Reaction to a Blood Tr: No Family Medical History Significant Family History: No Pertinent Family Hx, Cancer, Diabetes Family Medial History: Colon cancer G8 BROTHER, Onset:55 FHx: brain tumor G8 SISTER Review of Systems-General Constitutional: dizziness malaise weakness EENTM: No blurred vision, No double vision, No epistaxis, No mouth swelling, No throat swelling Respiratory: No cough, dyspnea on exertionNo hemoptysis Cardiovascular: No chest pain, No edema, No palpitations Gastrointestinal: see HPINo hematemesis, No melena, No vomiting Musculoskeletal: back pain joint pain joint swelling Skin: No change in color, No change in hair/nails, No lesions Psychiatric/Neurological: Denies Paresthesia, Weakness Physical Exam-General Problems Physical Exam Vital Signs Vital Sign - Last 12Hours 07/13/16 15:48 Temp 99.5 Pulse 83 Resp 18 B/P 95/65 Pulse Ox 92 O2 Delivery Nasal Cannula O2 Flow Rate 2 Capillary Refill : Less Than 3 Seconds General Appearance: WD/WN mild distress obese Eyes: Bilateral Eye EOMI, Bilateral Eye PERRL HEENT: pharynx normalNo scleral icterus (R), No scleral icterus (L), other ( poor dentition) Neck: full range of motion supple Respiratory: lungs clear normal breath sounds no respiratory distress Cardiovascular: regular rate, rhythm no edema no murmur Gastrointestinal: normal bowel sounds soft no pulsatile mass distended tenderness (minimal diffusely) Rectal: deferred Back: no vertebral tenderness CVA tenderness (L) Extremities: normal range of motion no pedal edema no calf tenderness 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2, Lymphocytes (%) (Auto) 16, Mean Corpuscular Hemoglobin 27, Mean Corpuscular Hemoglobin Concent 31L, Mean Corpuscular Volume 86, Mean Platelet Volume 8.2, Monocytes # (Auto) 0.7, Monocytes (%) (Auto) 10, Neutrophils # (Auto) 5.1, Neutrophils (%) (Auto) 71, Platelet Count 462H, Potassium Level 3.5L, Red Blood Count 3.23L, Red Cell Distribution Width 14.4, Sodium Level 133L, Total Bilirubin 0.8, Total Protein 6.2L, Urine Bacteria NEGATIVE, Urine Bilirubin NEGATIVE, Urine Casts NONE, Urine Clarity CLEAR, Urine Color YELLOW, Urine Crystals NONE, Urine Culture Indicated NO, Urine Glucose (UA) NEGATIVE, Urine Ketones NEGATIVE, Urine Leukocyte Esterase NEGATIVE , Urine Mucus MODERATEH, Urine Nitrite NEGATIVE, Urine Protein NEGATIVE, Urine RBC RARE, Urine RBC (Auto) 1+H, Urine Specific [place] 1.015L, Urine Urobilinogen 8H, Urine WBC 2-5, Urine pH 6, White Blood Count 7.2 Assessment/Plan Assessment/Plan Assessment/Plan Splenic Laceration - read by radiologist as possible new blood, amount has increased compared to last CT. I defer all reading to radiologist; when I looked it did not appear that the fluid extended into pelvis...seemed to stop. It also appeared as if there was a new fracture of the spleen, not sure if this is due to the embolization or if he re-injured it. His hemoglobin is stable and vitals are stable. Would monitor pt and transfuse if he needs blood, but would try to avoid surgery at this point. Pt has slight dementia and needs to be in a place where he is watched all the time, he cannot go back home. DM, CAD, Arthritis, Neuropathy, HTN: defer to hospitalist to take care of his multiple medical problems Thank you for this consult. DEJAH REBOLLAR DO Jul 13, 2016 20:14
[2016-07-13] MEDS ORDERED: RT-ALBUTEROL/IPRATROPIUM 3 ML (DUONEB) VIAL ONE (21:43)
[2016-07-14 01:40] VITALS: BP 87/52
[2016-07-14] MEDS: RT-ALBUTEROL/IPRATROPIUM 3 ML (DUONEB) VIAL INH SCH ×2 (02:30→10:12)
[2016-07-14 04:20] VITALS: BP 108/55
[2016-07-14 06:29] LABS: BASOPHILS % (AUTO) 1 % (0-10); EOSINOPHILS # (AUTO) 0.3 10^3/uL (0.0-0.3); EOSINOPHILS % (AUTO) 4 % (0-10); LYMPHOCYTES % (AUTO) 19 % (12-44); MEAN CORPUSCULAR HEMOGLOBIN 27 PG (25-34); MEAN CORPUSCULAR HGB CONC 31 G/DL (32-36); MEAN CORPUSCULAR VOLUME 87 FL (80-99); MEAN PLATELET VOLUME 7.9 FL (7.4-10.4); MONOCYTES # (AUTO) 0.6 X 10^3 (0.0-1.0); MONOCYTES % (AUTO) 11 % (0-12); NEUTROPHILS # (AUTO) 3.7 X 10^3 (1.8-7.8); NEUTROPHILS % (AUTO) 66 % (42-75); PLATELET COUNT 444 10^3/uL (130-400); RED BLOOD COUNT 3.08 10^6/uL (4.35-5.85); RED CELL DISTRIBUTION WIDTH 14.5 % (10.0-14.5); WHITE BLOOD COUNT 5.6 10^3/uL (4.3-11.0)
--- NOTE | 2016-07-14 07:59 | Pulmonary Consultation ---
History of Present Illness History of Present Illness Date of Consultation 07/14/16 07:57 Date of Admission History of Present Illness 75 yo presented secondary to worsening SOB and MS changes. She was recently discharged from hospital 07/07/16 and she had minimally displaced left rib fractures 8 through 12 1 laceration which required interventional radiology for embolization of splenic arteries near the laceration. I am consulted for pulmonary mangemtn. Allergies and Home Medications Allergies Coded Allergies: No Known Drug Allergies (Verified , 07/03/16) Home Medications Citalopram Hydrobromide 10 Mg Tablet 10 MG PO DAILY (Reported) Fenofibrate Nanocrystallized 145 Mg Tablet 145 MG PO DAILY (Reported) Liraglutide 0.6 Mg/0.1 Ml Pen.injctr 1.2 MG SQ DAILY (Reported) Lubiprostone 24 Mcg Capsule 24 MCG PO DAILY (Reported) LAST FILLED 04/07/16 #85 Morphine Sulfate 60 Mg Tablet.er 60 MG PO BID (Reported) Morphine Sulfate 15 Mg Tablet 15 MG PO Q6H PRN PRN PAIN (Reported) Polyethylene Glycol 3350 17 Gm Powd.pack 17 GM PO DAILY PRN PRN CONSTIPATION ( Reported) Pregabalin 225 Mg Capsule 225 MG PO BID (Reported) Past Khgxcny-Pymhvl-Kfsphw Hx Patient Social History Alcohol Use: Denies Use Recreational Drug Use: No Smoking Status: Former Smoker Type Used: Cigarettes Former Smoker/When Quit: Oct 07, 2004 Recent Foreign Travel: No Contact w/Someone Who Travel: No Recent Infectious Disease Expo: No Recent Hopitalizations: No Physical Abuse Screen: No Sexual Abuse: No Immunizations Up To Date Date of Pneumonia Vaccine: Oct 12, 2011 Date of Influenza Vaccine: Mar 21, 2016 Seasonal Allergies Seasonal Allergies: No Surgeries HX Surgeries: Yes Surgeries: Coronary Stent, Gallbladder, Orthopedic, Vascular Surgery Respiratory Hx Respiratory Disorders: No Cardiovascular Hx Cardiac Disorders: Yes Cardiac Disorders: Coronary Artery Disease, Heart Attack, Hypertension, Peripheral Vascular Neurological Hx Neurological Disorders: Yes Neurological Disorders: Neuropathy Reproductive System Hx Reproductive Disorders: No Sexually Transmitted Disease: No Genitourinary Hx Genitourinary Disorders: Yes Genitourinary Disorders: UTI-Chronic Gastrointestinal Hx Gastrointestinal Disorders: No Musculoskeletal Hx Musculoskeletal Disorders: Yes Musculoskeletal Disorders: Arthritis Endocrine Hx Endocrine Disorders: Yes Endocrine Disorders: Diabetes, Non-Insulin dep HEENT HX ENT Disorders: No Cancer Hx Cancer: No Psychosocial Hx Psychiatric Problems: Yes Behavioral Health Disorders: Depression Integumentary HX Skin/Integumentary Disorder: No Blood Transfusions Hx Blood Disorders: No Adverse Reaction to a Blood Tr: No Family Medical History Significant Family History: No Pertinent Family Hx, Cancer, Diabetes Family Medial History: Colon cancer G8 BROTHER, Onset:55 FHx: brain tumor G8 SISTER Review of Systems Respiratory: : Cough: Dry: SOB with excertion: Shortness of breath Gastrointestinal: No: Diarrhea, Nausea, Vomiting Neurological: : Confusion: Weakness Exam Exam Vital Signs Date Time Temp Pulse Resp B/P Pulse Ox O2 Delivery O2 Flow Rate FiO2 07/14/16 04:20 98.8 63 20 108/55 97 Nasal Cannula 3.00 07/14/16 02:30 84 3.50 07/14/16 01:40 99.6 75 18 87/52 94 Nasal Cannula 2.00 07/13/16 21:55 2.00 07/13/16 21:01 2.00 07/13/16 20:56 97 07/13/16 18:50 99.5 73 18 98 Nasal Cannula 2 07/13/16 15:48 99.5 83 18 95/65 92 Nasal Cannula 2 I & O 07/14/16 07:00 Intake Total 260 ml Output Total 500 ml Balance -240 ml General Appearance: No Apparent Distress WD/WN Chronically ill HEENT: PERRL/EOMI TMs Normal Neck: Full Range of Motion Normal Inspection Respiratory: No Accessory Muscle Use No Respiratory Distress Decreased Breath Sounds Cardiovascular: Regular Rate, Rhythm Normal Peripheral Pulses Capillary Refill: Less Than 3 Seconds Gastrointestinal: normal bowel sounds soft no pulsatile mass distended tenderness (minimal diffusely) Extremity: Normal Inspection Other (+2 pitting edema bilateral lower cavity) Neurologic/Psychiatric: Alert Other (confused conversation, states that he hurts everywhere.) Skin: Normal Color Warm/Dry Results Lab Laboratory Tests 07/13/16 16:08 07/14/16 06:09 Assessment/Plan Assessment/Plan splenic laceration with active bleeding Small LLL effusion - will discuss with radiology -Will hold off on Abx for now BINA TSAI DO Jul 14, 2016 07:59
[2016-07-14] MEDS ORDERED: NS W/KCL 20 MEQ/L 1,000 ML IV SCH (08:00)
[2016-07-14 08:08] VITALS: BP 104/60
[2016-07-14] MEDS ORDERED: POLYETHYLENE GLYCOL 17 GM (MIRALAX) PACK PO NR (11:30)
[2016-07-14] MEDS ORDERED: MORP15TA PO (11:31)
[2016-07-14] MEDS ORDERED: POLY17PO6 PO (11:31)
[2016-07-14] MEDS ORDERED: MORP60TA52 PO (11:31)
[2016-07-14] MEDS ORDERED: LIRA0.6P3 SQ (11:31)
[2016-07-14] MEDS ORDERED: LUBI24CA6 PO (11:31)
--- NOTE | 2016-07-14 11:37 | Short Stay Summary-Hospitalist ---
HPI History of Present Illness: HPI/Chief Complaint The patient is a 75-year-old white male who was hospitalized here from June 29 after suffering a fall at home with multiple broken ribs and a splenic laceration. This did not require surgery and he was discharged to swing bed for further physical therapy from July 03. His performance was marginal at best and it had been recommended that he go to a halfway however he didn 't agree. His family accompanied him to the emergency room last evening and allowed that his performance had been poor with multiple falls at home and they were unable to care for him any longer. In the emergency room his hemoglobin remained the same as at discharge. CT scan of the abdomen suggested that the hematoma from the splenic laceration was slightly larger. Dr. Garcia examined him and recommended overnight observation. As his hemoglobin remains exactly the same as at admission he was ready for halfway placement. He complains to the nurses rather bitterly that he's not had a bowel movement in 8 days. Source: patient, RN/MD, EMS Exam Limitations: no limitations Date Seen 07/14/16 Attending Physician Nicholas Lieberman MD PCP Hellen Tomas MD Referring Physician Date of Admission Jul 13, 2016 at 18:22 Home Medications & Allergies Home Medications Reviewed patient Home Medication Reconciliation Form Allergies Coded Allergies: No Known Drug Allergies (Verified , 07/03/16) Past Wifwrzp-Umgana-Zoikkc Hx Patient Social History Alcohol Use: Denies Use Recreational Drug Use: No Smoking Status: Former Smoker Former smoker/When Quit: Oct 07, 2004 Type Used: Cigarettes Physical Abuse Screen: No Sexual Abuse: No Recent Foreign Travel: No Contact w/other who traveled: Yes Recent Hopitalizations: No Recent Infectious Disease Expo: No Immunizations Up To Date Date of Pneumonia Vaccine: Oct 12, 2011 Date of Influenza Vaccine: Mar 21, 2016 Seasonal Allergies Seasonal Allergies: No Surgeries HX Surgeries: Yes Surgeries: Coronary Stent, Gallbladder, Orthopedic, Vascular Surgery Respiratory Hx Respiratory Disorders: No Cardiovascular Hx Cardiovascular Disorders: Yes Cardiac Disorders: Coronary Artery Disease, Heart Attack, Hypertension, Peripheral Vascular Neurological Hx Neurological Disorders: Yes Neurological Disorders: Neuropathy Reproductive System Hx Reproductive Disorders: No Sexually Transmitted Disease: No Genitourinary Hx Genitourinary Disorders: Yes Genitourinary Disorders: UTI-Chronic Gastrointestinal Hx Gastrointestinal Disorders: No Musculoskeletal Hx Musculoskeletal Disorders: Yes Musculoskeletal Disorders: Arthritis Endocrine Hx Endocrine Disorders: Yes Endocrine Disorders: Diabetes, Non-Insulin dep HEENT HX ENT Disorders: No Cancer Hx Cancer: No Psychosocial Hx Psychiatric Problems: Yes Behavioral Health Disorders: Depression Integumentary HX Skin/Integumentary Disorder: No Blood Transfusions Hx Blood Disorders: No Adverse Reaction to a Blood Tr: No Family Medical History Significant Family History: No Pertinent Family Hx, Cancer, Diabetes Family Hx: Colon cancer G8 BROTHER, Onset:55 FHx: brain tumor G8 SISTER Review of Systems Constitutional: see HPI EENTM: no symptoms reported Respiratory: no symptoms reported Cardiovascular: no symptoms reported Gastrointestinal: constipation (reports 8 days without a bowel movement) Genitourinary: frequency hesitancy Musculoskeletal: muscle weakness Skin: no symptoms reported Psychiatric/Neurological: No Symptoms Reported Physical Exam Physical Exam Vital Signs Vital Sign - Last 12Hours 07/13/16 15:48 Temp 99.5 Pulse 83 Resp 18 B/P 95/65 Pulse Ox 92 O2 Delivery Nasal Cannula O2 Flow Rate 2 Capillary Refill : Less Than 3 Seconds General Appearance: Other (quite grumpy and obsessed about bowel habits) Eyes: Bilateral Eye Normal Inspection Neck: Full Range of Motion Normal Inspection Non Tender Supple Carotid Bruit Cardiovascular: Regular Rate, Rhythm No Edema No Gallop No JVD No Murmur Normal Peripheral Pulses Gastrointestinal: Normal Bowel Sounds No Organomegaly No Pulsatile Mass Non Tender Soft Neurologic/Psychiatric: Alert Oriented x3 No Motor/Sensory Deficits Normal Mood/Affect Skin: Normal Color Warm/Dry Lymphatic: No Adenopathy Results Results/Procedures Lab Short Stay Diagnosis Discharge Diagnosis-Short Stay Admission Diagnosis Repeated falling at home. 2.recent fall at home with laceration of spleen and subsequent bleeding and anemia Final Discharge Diagnosis Repeated falling at home/inability to perform the activities of daily care. 2.recent fall with multiple fractured ribs and splenic laceration. 3.stable degree of splenic bleed Conclusion Plan longterm placement Clinical Quality Measures DVT/VTE Risk/Contraindication: Risk Factor Score Per Nursin RFS Level Per Nursing on Admit: 3=High NICHOLAS LIEBERMAN MD Jul 14, 2016 11:37 NICHOLAS LIEBERMAN MD Jul 14, 2016 11:37
[2016-07-14 12:00] VITALS: BP 107/54
[2016-07-14] MEDS ORDERED: morphine IMMEDIATE RELEASE 15 MG TABLET PO PRN (13:00)
[2016-07-14] MEDS ORDERED: POLYETHYLENE GLYCOL 17 GM (MIRALAX) PACK PO PRN (13:00)
[2016-07-14 16:00] VITALS: BP 108/62
[2016-07-15] MEDS ORDERED: LUBIPROSTONE 24 MCG CAP (AMITIZA) NON-FORMULARY PO SCH (09:00)
== END 2016-07-14 13:04 ==
LOC: EDUNIT# 15:45 → ER 15:46 → UNDOADMOB 18:22 → 4TH 18:22
PROVIDERS: ADMIT Internal Medicine; ATTEND Internal Medicine
DX: S36.039A Unspecified laceration of spleen, initial encounter (principal); S22.42XD Multiple fractures of ribs, left side, subsequent encounter for fracture with routine healing; J90 Pleural effusion, not elsewhere classified; R29.6 Repeated falls; D64.9 Anemia, unspecified; R53.1 Weakness; F03.90 Unspecified dementia, unspecified severity, without behavioral disturbance, psychotic disturbance, mood disturbance, and anxiety; I25.10 Atherosclerotic heart disease of native coronary artery without angina pectoris; I10 Essential (primary) hypertension; E11.9 Type 2 diabetes mellitus without complications; M19.90 Unspecified osteoarthritis, unspecified site; G62.9 Polyneuropathy, unspecified; Z87.891 Personal history of nicotine dependence; Z95.5 Presence of coronary angioplasty implant and graft; W19.XXXA Unspecified fall, initial encounter; Y92.009 Unspecified place in unspecified non-institutional (private) residence as the place of occurrence of the external cause
CPT/HCPCS: 36415; 71010; 74177; 80053; 81000; 85025; 94640; 94664; 94760; G0378

== ENCOUNTER 2016-08-06 15:11 | Emergency (ER) | payer MEDICARE, MEDICAID ==
[~2016-08-06] VITALS: Ht 182.9 cm; Wt 99.8 kg
[~2016-08-06 15:11] MED LIST changes: +CITA10TA7 PO; +FENO145T20 PO; +LIRA0.6P3 SQ; +LUBI24CA6 PO; +METF500T4 PO; +POLY17PO6 PO; +PREG225C PO
--- OUTSIDE RECORDS SUMMARY | 2016-08-06 15:20 | XMS REPORT | Continuity of Care Document ---
Author Author [facility] Organization [facility] Address Unknown Phone Unavailable Allergies Active Description Code Type Severity Reaction Onset Reported/Identified Relationship to Patient Clinical Status Yes No Known Allergies Drug Allergy 06/06/2012 Yes No Known Drug Allergies Drug Allergy 06/06/2012 Yes No Known Food Allergies Food Allergy 06/06/2012 Yes No Known Drug Allergies [id number] Drug Allergy Unknown N/ A 07/03/2016 Medications Problems Date Dx Coded Attending Type Code Diagnosis Diagnosed By 05/20/1599 MAIKEL STAPLES APRN Ot E11.621 TYPE 2 DIABETES MELLITUS WITH FOOT ULCER 05/20/1599 MAIKEL STAPLES APRN Ot I25.10 ATHSCL HEART DISEASE OF [place] CORONARY 05/20/1599 MAIKEL STAPLES APRN Ot L97.512 NON-PRS CHRONIC ULCER OTH PRT RIGHT FOOT 05/20/1599 MAIKEL STAPLES APRN Ot S91.204A UNSP OPN WND RIGHT LESSER TOE(S) W DAMAG 11/16/2009 Ot 338.29 11/16/2009 Ot 356.9 11/16/2009 Ot 729.5 12/16/2009 Ot 338.29 12/16/2009 Ot 354.9 12/16/2009 Ot 355.8 12/16/2009 Ot 729.5 01/02/2010 Ot 250.00 01/02/2010 Ot 707.14 01/15/2010 Ot 211.3 01/15/2010 Ot 530.81 01/15/2010 Ot 531.90 01/15/2010 Ot V67.09 01/17/2010 Ot 250.60 01/17/2010 Ot 357.2 01/17/2010 Ot 401.9 02/25/2010 Ot 250.60 02/25/2010 Ot 272.1 02/25/2010 Ot 337.1 02/25/2010 Ot 414.01 02/25/2010 Ot 414.8 02/25/2010 Ot 426.3 02/25/2010 Ot 443.9 02/25/2010 Ot 458.0 02/25/2010 Ot 715.90 02/25/2010 Ot 722.6 02/25/2010 Ot 780.79 02/25/2010 Ot V15.82 02/25/2010 Ot V45.82 02/25/2010 Ot V58.69 03/29/2010 Ot 338.29 03/29/2010 Ot V58.69 04/07/2010 Ot 250.00 04/07/2010 Ot 719.41 04/07/2010 Ot 789.09 04/07/2010 Ot V58.69 04/15/2010 Ot 327.23 04/29/2010 Ot 356.9 04/29/2010 Ot V58.69 05/28/2010 Ot 250.00 05/28/2010 Ot 726.12 05/28/2010 Ot 727.61 05/28/2010 Ot 728.89 05/28/2010 Ot V58.69 08/20/2010 Ot 250.00 08/20/2010 Ot 726.0 08/20/2010 Ot V58.69 08/28/2010 Ot 719.41 08/28/2010 Ot V57.1 08/28/2010 Ot V58.49 10/20/2010 Ot 719.41 JOINT PAIN-SHLDER 10/20/2010 Ot V57.1 PHYSICAL THERAPY NEC 10/20/2010 Ot V58.49 OTHER SPECIFIED AFTERCARE FOLLOWING SURG 01/25/2011 Ot 305.90 DRUG ABUSE NEC-UNSPEC 01/25/2011 Ot V65.2 PERSON FEIGNING ILLNESS 03/27/2011 Ot 455.0 INT HEMORRHOID W/O COMPL 03/27/2011 Ot 455.3 EXT HEMORRHOID W/O COMPL 03/27/2011 Ot 530.11 REFLUX ESOPHAGITIS 03/27/2011 Ot 535.40 OTH SPECIFIED GASTRITIS,W/O MENTION OF H 03/27/2011 Ot 553.3 DIAPHRAGMATIC HERNIA 03/27/2011 Ot 787.99 OTHER GI SYSTEM SYMPTOMS 03/27/2011 Ot V12.72 PERSONAL HISTORY OF COLONIC POLYPS 06/03/2011 Ot 250.00 DIAB QAMAR WO COMPL, TYPE II OR UNSPEC TY 06/03/2011 Ot 272.0 PURE HYPERCHOLESTEROLEM 06/03/2011 Ot 414.01 CORONARY ATHEROSCLEROSIS OF [place] CORON 06/03/2011 Ot 726.0 ADHESIVE CAPSULIT SHLDER 06/03/2011 Ot V58.63 LONG-TERM(CURRENT)USE OF ANTIPLATELET/AN 06/03/2011 Ot V58.67 LONG-TERM (CURRENT) USE OF INSULIN 06/03/2011 Ot V58.69 OT MED,LT,CURRENT USE 06/25/2011 Ot 787.03 VOMITING ALONE 06/25/2011 Ot 789.09 ABDOMINAL PAIN, OTHER SPECIFIED SITE 08/04/2011 Ot 719.41 JOINT PAIN-SHLDER 08/04/2011 Ot V57.1 PHYSICAL THERAPY NEC 08/04/2011 Ot V58.49 OTHER SPECIFIED AFTERCARE FOLLOWING SURG 10/14/2011 Ot 250.00 DIAB QAMAR WO COMPL, TYPE II OR UNSPEC TY 10/14/2011 Ot 272.4 HYPERLIPIDEMIA NEC/NOS 10/14/2011 Ot 414.01 CORONARY ATHEROSCLEROSIS OF [place] CORON 10/14/2011 Ot 414.8 CHR ISCHEMIC HRT DIS NEC 10/14/2011 Ot 424.1 AORTIC VALVE DISORDER 10/14/2011 Ot 715.91 OSTEOARTHROS NOS-SHLDER 10/14/2011 Ot 786.09 RESPIRATORY ABNORM NEC 10/14/2011 Ot 786.59 CHEST PAIN NEC 10/14/2011 Ot V15.81 HX OF PAST NONCOMPLIANCE 10/14/2011 Ot V15.82 HISTORY OF TOBACCO USE 10/14/2011 Ot V45.82 PERCUTANEOUS TRANSLUM CORON ANGIOPLASTY 10/14/2011 Ot V58.63 LONG-TERM(CURRENT)USE OF ANTIPLATELET/AN 10/14/2011 Ot V58.69 OT MED,LT,CURRENT USE 10/29/2011 Ot 780.96 GENERALIZED PAIN 11/09/2011 Ot 250.00 DIAB QAMAR WO COMPL, TYPE II OR UNSPEC TY 11/09/2011 Ot 338.29 OTHER CHRONIC PAIN 11/09/2011 Ot 356.9 IDIO PERIPH NEURPTHY NOS 11/09/2011 Ot 401.9 HYPERTENSION NOS 11/24/2011 Ot V57.1 PHYSICAL THERAPY NEC 11/24/2011 Ot V58.78 AFTERCARE POST SURGERY MUSCULOSKELETAL S 12/15/2011 Ot 250.00 DIAB QAMAR WO COMPL, TYPE II OR UNSPEC TY 12/15/2011 Ot 272.4 HYPERLIPIDEMIA NEC/NOS 12/15/2011 Ot 414.01 CORONARY ATHEROSCLEROSIS OF [place] CORON 12/15/2011 Ot 414.8 CHR ISCHEMIC HRT DIS NEC 12/15/2011 Ot 424.1 AORTIC VALVE DISORDER 12/15/2011 Ot 530.81 ESOPHAGEAL REFLUX 12/15/2011 Ot 695.89 ERYTHEMATOUS COND NEC 12/15/2011 Ot 786.09 RESPIRATORY ABNORM NEC 12/15/2011 Ot 786.59 CHEST PAIN NEC 12/15/2011 Ot V15.82 HISTORY OF TOBACCO USE 12/15/2011 Ot V45.82 PERCUTANEOUS TRANSLUM CORON ANGIOPLASTY 12/15/2011 Ot V58.63 LONG-TERM(CURRENT)USE OF ANTIPLATELET/AN 12/15/2011 Ot V58.66 LONG-TERM (CURRENT) USE OF ASPIRIN 12/15/2011 Ot V58.69 OTH MED,LT,CURRENT USE 01/05/2012 Ot 250.60 DIAB W NEURO MANIFEST, TYPE II OR UNSPEC 01/05/2012 Ot 401.9 HYPERTENSION NOS 01/05/2012 Ot 414.00 CORON ATHEROSCLER NOS TYPE VESSEL, NATIV 01/05/2012 Ot 682.7 CELLULITIS OF FOOT 01/05/2012 Ot 707.15 ULCER OF OTHER PART OF FOOT 01/05/2012 Ot V45.81 AORTOCORONARY BYPASS 06/06/2012 Xu Daniel MD Final 250.00 DM2/NOS UNCOMP NSU 06/06/2012 Xu Daniel MD Final 272.4 HYPERLIPIDEMIA NEC NOS 06/06/2012 Xu Daniel MD Final 278.00 OBESITY NOS 06/06/2012 Xu Daniel MD Final 327.23 OBSTRUCTIVE SLEEP APNEA 06/06/2012 Xu Daniel MD Final 412 OLD MYOCARDIAL INFARCT 06/06/2012 Xu Daniel MD Final 414.01 COR -TRIBAL VESSEL 06/06/2012 Xu Daniel MD Final 716.15 TRAUM ARTHROPATHY-PELVIS 06/06/2012 Xu Daniel MD Final V03.82 STREP PNEUMONIAE VACCINE 06/06/2012 Xu Daniel MD Final V85.32 BMI 32.0-32.9 ADULT 10/03/2012 Ot V58.61 ANTICOAGULANTS,LT,CURRENT USE 10/03/2012 Ot V58.83 ENCOUNTER FOR THERAPEUTIC DRUG MONITORIN 10/17/2014 EDDIE GA MD Ot 490 BRONCHITIS NOS 10/17/2014 EDDIE GA MD Ot 780.60 FEVER, UNSPECIFIED 10/17/2014 EDDIE GA MD Ot V15.82 HISTORY OF TOBACCO USE 10/17/2014 HARMEET BUSTAMANTE, EDDIE A Ot V58.69 [facility],CURRENT USE 10/17/2014 Ot 272.4 10/17/2014 Ot 413.9 10/17/2014 Ot 414.01 10/17/2014 Ot 425.4 10/17/2014 Ot 786.05 10/17/2014 Ot V58.69 10/17/2014 Ot V72.63 10/17/2014 Ot V72.81 10/17/2014 Ot V74.8 10/17/2014 Ot 272.4 10/17/2014 Ot 414.01 10/17/2014 Ot V58.69 10/17/2014 Ot 727.61 10/17/2014 Ot V72.83 10/17/2014 Ot V74.8 10/17/2014 Ot 726.0 10/17/2014 Ot V74.8 10/17/2014 Ot V78.3 10/17/2014 Ot 726.0 10/17/2014 Ot V72.81 10/17/2014 Ot V74.8 10/17/2014 Ot 396.3 10/17/2014 Ot 414.00 10/17/2014 Ot 414.8 10/17/2014 Ot 429.3 10/17/2014 Ot V58.61 10/17/2014 Ot V58.83 10/17/2014 PATRICIA SOOD VOLUNTEER MANAGER Ot 250.00 10/17/2014 PATRICIA SOOD VOLUNTEER MANAGER Ot 272.4 10/17/2014 PATRICIA SOOD VOLUNTEER MANAGER Ot 414.00 10/17/2014 PATRICIA SOOD VOLUNTEER MANAGER Ot 447.9 06/03/2015 Ot 727.61 06/03/2015 Ot V72.83 06/03/2015 Ot V74.8 06/03/2015 Ot 726.0 06/03/2015 Ot V74.8 06/03/2015 Ot V78.3 06/03/2015 Ot 726.0 06/03/2015 Ot V72.81 06/03/2015 Ot V74.8 06/03/2015 Ot 396.3 06/03/2015 Ot 414.00 06/03/2015 Ot 414.8 06/03/2015 Ot 429.3 06/03/2015 Ot V58.61 06/03/2015 Ot V58.83 06/03/2015 BAIPATRICIA DIALLO L VOLUNTEER MANAGER Ot 250.00 06/03/2015 BAIMA, PATRICIA L VOLUNTEER MANAGER Ot 272.4 06/03/2015 BAIMA, PATRICIA L VOLUNTEER MANAGER Ot 414.00 06/03/2015 BAIMA, PATRICIA L VOLUNTEER MANAGER Ot 447.9 06/03/2015 PREM BENNETT MAXIMINO L Ot H61.21 IMPACTED CERUMEN, RIGHT EAR 06/28/2015 Ot 396.3 06/28/2015 Ot 414.00 06/28/2015 Ot 414.8 06/28/2015 Ot 429.3 06/28/2015 Ot V58.61 06/28/2015 Ot V58.83 06/28/2015 BAIYOEL, PATRICIA L VOLUNTEER MANAGER Ot 250.00 06/28/2015 BAIMA, PATRICIA L VOLUNTEER MANAGER Ot 272.4 06/28/2015 BAIMA, PATRICIA L VOLUNTEER MANAGER Ot 414.00 06/28/2015 BAIMA, PATRICIA L VOLUNTEER MANAGER Ot 447.9 03/08/2016 Ot 726.0 ADHESIVE CAPSULIT SHLDER 03/08/2016 Ot V72.81 [id number] CARDIOVASCULAR 03/08/2016 Ot V74.8 SCREEN-BACTERIAL DIS NEC 03/08/2016 Ot 396.3 MITRAL/AORTIC AMAURI INSUFF 03/08/2016 Ot 414.00 CORON ATHEROSCLER NOS TYPE VESSEL, NATIV 03/08/2016 Ot 414.8 CHR ISCHEMIC HRT DIS NEC 03/08/2016 Ot 429.3 CARDIOMEGALY 03/08/2016 Ot V58.61 ANTICOAGULANTS,LT,CURRENT USE 03/08/2016 Ot V58.83 ENCOUNTER FOR THERAPEUTIC DRUG MONITORIN 03/08/2016 BAIELDER DIALLOHER L VOLUNTEER MANAGER Ot 250.00 DIAB QAMAR WO COMPL, TYPE II OR UNSPEC TY 03/08/2016 BAIMA, PATRICIA L VOLUNTEER MANAGER Ot 272.4 HYPERLIPIDEMIA NEC/NOS 03/08/2016 BAIMA, PATRICIA L VOLUNTEER MANAGER Ot 414.00 CORON ATHEROSCLER NOS TYPE VESSEL, NATIV 03/08/2016 BAIYOEL, PATRICIA L VOLUNTEER MANAGER Ot 447.9 ARTERIAL DISEASE NOS 03/08/2016 RICHIE BUSTAMANTE, LUIS A Arora Ot K59.00 CONSTIPATION, UNSPECIFIED 03/08/2016 RICHIE BUSTAMANTE, LUIS A Arora Ot Z53.21 PROC/TRTMT NOT CRD OUT D/T PT LV BEF SEE 03/10/2016 RICHIE BUSTAMANTE, LUIS A Arora Ot K59.00 CONSTIPATION, UNSPECIFIED 03/10/2016 RICHIE BUSTAMANTE, LUIS A Arora Ot Z53.21 PROC/TRTMT NOT CRD OUT D/T PT LV BEF SEE 05/07/2016 Ot 396.3 MITRAL/AORTIC AMAURI INSUFF 05/07/2016 Ot 414.00 CORON ATHEROSCLER NOS TYPE VESSEL, NATIV 05/07/2016 Ot 414.8 CHR ISCHEMIC HRT DIS NEC 05/07/2016 Ot 429.3 CARDIOMEGALY 05/07/2016 Ot V58.61 ANTICOAGULANTS,LT,CURRENT USE 05/07/2016 Ot V58.83 ENCOUNTER FOR THERAPEUTIC DRUG MONITORIN 05/07/2016 BAIMA, PATRICIA L VOLUNTEER MANAGER Ot 250.00 DIAB QAMAR WO COMPL, TYPE II OR UNSPEC TY 05/07/2016 BAIMA, PATRICIA L VOLUNTEER MANAGER Ot 272.4 HYPERLIPIDEMIA NEC/NOS 05/07/2016 BAIMA, PATRICIA L VOLUNTEER MANAGER Ot 414.00 CORON ATHEROSCLER NOS TYPE VESSEL, NATIV 05/07/2016 BAIMA, PATRICIA L VOLUNTEER MANAGER Ot 447.9 ARTERIAL DISEASE NOS 05/19/2016 Ot 726.0 ADHESIVE CAPSULIT SHLDER 05/19/2016 Ot V72.81 [id number] CARDIOVASCULAR 05/19/2016 Ot V74.8 SCREEN-BACTERIAL DIS NEC 05/19/2016 Ot 396.3 MITRAL/AORTIC AMAURI INSUFF 05/19/2016 Ot 414.00 CORON ATHEROSCLER NOS TYPE VESSEL, NATIV 05/19/2016 Ot 414.8 CHR ISCHEMIC HRT DIS NEC 05/19/2016 Ot 429.3 CARDIOMEGALY 05/19/2016 Ot V58.61 ANTICOAGULANTS,LT,CURRENT USE 05/19/2016 Ot V58.83 ENCOUNTER FOR THERAPEUTIC DRUG MONITORIN 05/19/2016 BAIMA, PATRICIA L VOLUNTEER MANAGER Ot 250.00 DIAB QAMAR WO COMPL, TYPE II OR UNSPEC TY 05/19/2016 BAIMA, PATRICIA L VOLUNTEER MANAGER Ot 272.4 HYPERLIPIDEMIA NEC/NOS 05/19/2016 BAIMA, PATRICIA L VOLUNTEER MANAGER Ot 414.00 CORON ATHEROSCLER NOS TYPE VESSEL, NATIV 05/19/2016 BAIMA, PATRICIA L VOLUNTEER MANAGER Ot 447.9 ARTERIAL DISEASE NOS 05/19/2016 BEL, MAIKEL R RECORDS MANAGEMENT COORDINATOR Ot E11.621 TYPE 2 DIABETES MELLITUS WITH FOOT ULCER 05/19/2016 MAIKEL STAPLES RECORDS MANAGEMENT COORDINATOR Ot E11.621 TYPE 2 DIABETES MELLITUS WITH FOOT ULCER 05/19/2016 MAIKEL STAPLES RECORDS MANAGEMENT COORDINATOR Ot I25.10 ATHSCL HEART DISEASE OF [place] CORONARY 05/19/2016 MAIKEL STAPLES RECORDS MANAGEMENT COORDINATOR Ot L97.512 NON-PRS CHRONIC ULCER OTH PRT RIGHT FOOT 06/09/2016 MAIKEL STAPLES RECORDS MANAGEMENT COORDINATOR Ot E11.621 TYPE 2 DIABETES MELLITUS WITH FOOT ULCER 06/09/2016 MAIKEL STAPLES RECORDS MANAGEMENT COORDINATOR Ot I25.10 ATHSCL HEART DISEASE OF [place] CORONARY 06/09/2016 MAIKEL STAPLES RECORDS MANAGEMENT COORDINATOR Ot L97.512 NON-PRS CHRONIC ULCER OTH PRT RIGHT FOOT 06/09/2016 MAIKEL STAPLES RECORDS MANAGEMENT COORDINATOR Ot E11.621 TYPE 2 DIABETES MELLITUS WITH FOOT ULCER 06/09/2016 MAIKEL STAPLES RECORDS MANAGEMENT COORDINATOR Ot I25.10 ATHSCL HEART DISEASE OF [place] CORONARY 06/09/2016 MAIKEL STAPLES RECORDS MANAGEMENT COORDINATOR Ot L97.512 NON-PRS CHRONIC ULCER OTH PRT RIGHT FOOT 06/09/2016 MAIKEL STAPLES RECORDS MANAGEMENT COORDINATOR Ot S91.204A UNSP OPN WND RIGHT LESSER TOE(S) W DAMAG 06/18/2016 MAIKEL STAPLES RECORDS MANAGEMENT COORDINATOR Ot E11.621 TYPE 2 DIABETES MELLITUS WITH FOOT ULCER 06/18/2016 MAIKEL STAPLES RECORDS MANAGEMENT COORDINATOR Ot I25.10 ATHSCL HEART DISEASE OF [place] CORONARY 06/18/2016 MAIKEL STAPLES RECORDS MANAGEMENT COORDINATOR Ot L97.512 NON-PRS CHRONIC ULCER OTH PRT RIGHT FOOT 06/18/2016 MAIKEL STAPLES RECORDS MANAGEMENT COORDINATOR Ot S91.204A UNSP OPN WND RIGHT LESSER TOE(S) W DAMAG 06/18/2016 MAIKEL STAPLES RECORDS MANAGEMENT COORDINATOR Ot E11.621 TYPE 2 DIABETES MELLITUS WITH FOOT ULCER 06/18/2016 MAIKEL STAPLES RECORDS MANAGEMENT COORDINATOR Ot I25.10 ATHSCL HEART DISEASE OF [place] CORONARY 06/18/2016 MAIKEL STAPLES RECORDS MANAGEMENT COORDINATOR Ot L97.512 NON-PRS CHRONIC ULCER OTH PRT RIGHT FOOT 06/29/2016 Ot 726.0 ADHESIVE CAPSULIT SHLDER 06/29/2016 Ot V72.81 [id number] CARDIOVASCULAR 06/29/2016 Ot V74.8 SCREEN-BACTERIAL DIS NEC 06/29/2016 Ot 396.3 MITRAL/AORTIC AMAURI INSUFF 06/29/2016 Ot 414.00 CORON ATHEROSCLER NOS TYPE VESSEL, NATIV 06/29/2016 Ot 414.8 CHR ISCHEMIC HRT DIS NEC 06/29/2016 Ot 429.3 CARDIOMEGALY 06/29/2016 Ot V58.61 ANTICOAGULANTS,LT,CURRENT USE 06/29/2016 Ot V58.83 ENCOUNTER FOR THERAPEUTIC DRUG MONITORIN 06/29/2016 PATRICIA SOOD VOLUNTEER MANAGER Ot 250.00 DIAB QAMAR WO COMPL, TYPE II OR UNSPEC TY 06/29/2016 PATRICIA SOOD L VOLUNTEER MANAGER Ot 272.4 HYPERLIPIDEMIA NEC/NOS 06/29/2016 PATRICIA SOOD L VOLUNTEER MANAGER Ot 414.00 CORON ATHEROSCLER NOS TYPE VESSEL, NATIV 06/29/2016 PATRICIA SOOD VOLUNTEER MANAGER Ot 447.9 ARTERIAL DISEASE NOS 06/29/2016 MAIKEL STAPLES RECORDS MANAGEMENT COORDINATOR Ot E11.621 TYPE 2 DIABETES MELLITUS WITH FOOT ULCER 06/29/2016 MAIKEL STAPLES APRN Ot I25.10 ATHSCL HEART DISEASE OF [place] CORONARY 06/29/2016 MAIKEL STAPLES RECORDS MANAGEMENT COORDINATOR Ot L97.512 NON-PRS CHRONIC ULCER OTH PRT RIGHT FOOT 06/30/2016 DEJAH REBOLLAR DO Ot E11.42 TYPE 2 DIABETES MELLITUS WITH DIABETIC P 06/30/2016 DEJAH REBOLLAR DO Ot E11.51 TYPE 2 DIABETES W DIABETIC PERIPHERAL AN 06/30/2016 DEJAH REBOLLAR DO Ot F32.9 MAJOR DEPRESSIVE DISORDER, SINGLE EPISOD 06/30/2016 DEJAH REBOLLAR DO Ot I10 ESSENTIAL (PRIMARY) HYPERTENSION 06/30/2016 DEJAH REBOLLAR DO Ot I25.10 ATHSCL HEART DISEASE OF [place] CORONARY 06/30/2016 DEJAH REBOLLAR DO Ot I25.2 OLD MYOCARDIAL INFARCTION 06/30/2016 DEJAH REBOLLAR DO Ot M19.90 UNSPECIFIED OSTEOARTHRITIS, UNSPECIFIED 06/30/2016 DEJAH REBOLLAR DO Ot S22.42XA MULTIPLE FRACTURES OF RIBS, LEFT SIDE, I 06/30/2016 DEJAH REBOLLAR DO Ot S36.039A UNSPECIFIED LACERATION OF SPLEEN, INITIA 06/30/2016 DEJAH REBOLLAR DO Ot W18.2XXA FALL IN (INTO) SHOWER OR EMPTY BATHTUB, 06/30/2016 DEJAH REBOLLAR DO B Ot Y92.002 BATHRM OF [facility] 06/30/2016 DEJAH REBOLLAR DO B Ot Z95.5 PRESENCE OF CORONARY ANGIOPLASTY IMPLANT 06/30/2016 DEJAH REBOLLAR DO B Ot Z95.820 PERIPHERAL VASCULAR ANGIOPLASTY STATUS W 06/30/2016 DEJAH REBOLLAR DO B Ot E11.42 TYPE 2 DIABETES MELLITUS WITH DIABETIC P 06/30/2016 JHON REBOLLAR DOIC B Ot E11.51 TYPE 2 DIABETES W DIABETIC PERIPHERAL AN 06/30/2016 JHON REBOLLAR DOIC B Ot F32.9 MAJOR DEPRESSIVE DISORDER, SINGLE EPISOD 06/30/2016 JHON REBOLLAR DOIC B Ot I10 ESSENTIAL (PRIMARY) HYPERTENSION 06/30/2016 JHON REBOLLAR DOIC B Ot I25.10 ATHSCL HEART DISEASE OF [place] CORONARY 06/30/2016 DEJAH REBOLLAR DO B Ot I25.2 OLD MYOCARDIAL INFARCTION 06/30/2016 DEJAH REBOLLAR DO B Ot M19.90 UNSPECIFIED OSTEOARTHRITIS, UNSPECIFIED 06/30/2016 JHON REBOLLAR DOIC B Ot S22.42XA MULTIPLE FRACTURES OF RIBS, LEFT SIDE, I 06/30/2016 DEJAH REBOLLAR DO Ot S36.039A UNSPECIFIED LACERATION OF SPLEEN, INITIA 06/30/2016 DEJAH REBOLLAR DO B Ot W18.2XXA FALL IN (INTO) SHOWER OR EMPTY BATHTUB, 06/30/2016 DEJAH REBOLLAR DO Ot Y92.002 BATHRM OF [facility] 06/30/2016 DEJAH REBOLLAR DO B Ot Z95.5 PRESENCE OF CORONARY ANGIOPLASTY IMPLANT 06/30/2016 DEJAH REBOLLAR DO B Ot Z95.820 PERIPHERAL VASCULAR ANGIOPLASTY STATUS W 07/01/2016 DEJAH REBOLLAR DO B Ot E11.42 TYPE 2 DIABETES MELLITUS WITH DIABETIC P 07/01/2016 DEJAH REBOLLAR DO B Ot E11.51 TYPE 2 DIABETES W DIABETIC PERIPHERAL AN 07/01/2016 JHON REBOLLAR DOIC B Ot F32.9 MAJOR DEPRESSIVE DISORDER, SINGLE EPISOD 07/01/2016 JHON REBOLLAR DOIC B Ot I10 ESSENTIAL (PRIMARY) HYPERTENSION 07/01/2016 DEJAH REBOLLAR DO B Ot I25.10 ATHSCL HEART DISEASE OF [place] CORONARY 07/01/2016 ZIOLAJACKELIN CHAMBERSDEJAH B Ot I25.2 OLD MYOCARDIAL INFARCTION 07/01/2016 ZOILAJACKELIN CHAMBERSDEJAH B Ot M19.90 UNSPECIFIED OSTEOARTHRITIS, UNSPECIFIED 07/01/2016 KETURAH CHAMBERSJHONIC B Ot S22.42XA MULTIPLE FRACTURES OF RIBS, LEFT SIDE, I 07/01/2016 ZOILAJACKELIN CHAMBERSDEJAH Ot S36.039A UNSPECIFIED LACERATION OF SPLEEN, INITIA 07/01/2016 KETURAH CHAMBERSDEJAH B Ot W18.2XXA FALL IN (INTO) SHOWER OR EMPTY BATHTUB, 07/01/2016 ZOILAJACKELIN CHAMBERSDEJAH Ot Y92.002 BATHRM OF [facility] 07/01/2016 KETURAH DEJAH Ot Z95.5 PRESENCE OF CORONARY ANGIOPLASTY IMPLANT 07/01/2016 ZOILAJACKELIN CHAMBERSDEJAH Ot Z95.820 PERIPHERAL VASCULAR ANGIOPLASTY STATUS W 07/02/2016 KETURAH DEJAH B Ot E11.42 TYPE 2 DIABETES MELLITUS WITH DIABETIC P 07/02/2016 ZOILAJACKELIN CHAMBERSDEJAH B Ot E11.51 TYPE 2 DIABETES W DIABETIC PERIPHERAL AN 07/02/2016 DEJAH REBOLLAR DO Ot F32.9 MAJOR DEPRESSIVE DISORDER, SINGLE EPISOD 07/02/2016 JHON REBOLLAR DOIC B Ot I10 ESSENTIAL (PRIMARY) HYPERTENSION 07/02/2016 KETURAH DEJAH B Ot I25.10 ATHSCL HEART DISEASE OF [place] CORONARY 07/02/2016 ZOILAJACKELIN CHAMBERSDEJAH Ot I25.2 OLD MYOCARDIAL INFARCTION 07/02/2016 KETURAH DEJAH B Ot M19.90 UNSPECIFIED OSTEOARTHRITIS, UNSPECIFIED 07/02/2016 ZOILAJACKELIN CHAMBERSDEJAH B Ot S22.42XA MULTIPLE FRACTURES OF RIBS, LEFT SIDE, I 07/02/2016 KETURAH DEJAH Ot S36.039A UNSPECIFIED LACERATION OF SPLEEN, INITIA 07/02/2016 ZOILAJACKELIN CHAMBERSDEJAH B Ot W18.2XXA FALL IN (INTO) SHOWER OR EMPTY BATHTUB, 07/02/2016 DEJAH REBOLLAR DO Ot Y92.002 BATHRM OF [facility] 07/02/2016 DEJAH REBOLLAR DO Ot Z95.5 PRESENCE OF CORONARY ANGIOPLASTY IMPLANT 07/02/2016 DEJAH REBOLLAR DO Ot Z95.820 PERIPHERAL VASCULAR ANGIOPLASTY STATUS W 07/02/2016 DEJAH REBOLLAR DO Ot E11.42 TYPE 2 DIABETES MELLITUS WITH DIABETIC P 07/02/2016 DEJAH REBOLLAR DO Ot E11.51 TYPE 2 DIABETES W DIABETIC PERIPHERAL AN 07/02/2016 DEJAH REBOLLAR DO Ot F32.9 MAJOR DEPRESSIVE DISORDER, SINGLE EPISOD 07/02/2016 DEJAH REBOLLAR DO Ot I10 ESSENTIAL (PRIMARY) HYPERTENSION 07/02/2016 DEJAH REBOLLAR DO Ot I25.10 ATHSCL HEART DISEASE OF [place] CORONARY 07/02/2016 DEJAH REBOLLAR DO Ot I25.2 OLD MYOCARDIAL INFARCTION 07/02/2016 DEJAH REBOLLAR DO Ot M19.90 UNSPECIFIED OSTEOARTHRITIS, UNSPECIFIED 07/02/2016 DEJAH REBOLLAR DO Ot S22.42XA MULTIPLE FRACTURES OF RIBS, LEFT SIDE, I 07/02/2016 DEJAH REBOLLAR DO Ot S36.039A UNSPECIFIED LACERATION OF SPLEEN, INITIA 07/02/2016 DEJAH REBOLLAR DO Ot W18.2XXA FALL IN (INTO) SHOWER OR EMPTY BATHTUB, 07/02/2016 DEJAH REBOLLAR DO Ot Y92.[address] [facility] 07/02/2016 DEJAH REBOLLAR DO Ot Z95.5 PRESENCE OF CORONARY ANGIOPLASTY IMPLANT 07/02/2016 DEJAH REBOLLAR DO Ot Z95.820 PERIPHERAL VASCULAR ANGIOPLASTY STATUS W 07/02/2016 DEJAH REBOLLAR DO Ot E11.42 TYPE 2 DIABETES MELLITUS WITH DIABETIC P 07/02/2016 DEJAH REBOLLAR DO Ot E11.51 TYPE 2 DIABETES W DIABETIC PERIPHERAL AN 07/02/2016 DEJAH REBOLLAR DO Ot E83.39 OTHER DISORDERS OF PHOSPHORUS METABOLISM 07/02/2016 DEJAH REBOLLAR DO Ot E87.6 HYPOKALEMIA 07/02/2016 DEJAH REBOLLAR DO Ot F32.9 MAJOR DEPRESSIVE DISORDER, SINGLE EPISOD 07/02/2016 DEJAH REBOLLAR DO Ot I10 ESSENTIAL (PRIMARY) HYPERTENSION 07/02/2016 DEJAH REBOLLAR DO Ot I25.10 ATHSCL HEART DISEASE OF [place] CORONARY 07/02/2016 DEJAH REBOLLAR DO Ot I25.2 OLD MYOCARDIAL INFARCTION 07/02/2016 DEJAH REBOLLAR DO Ot M19.90 UNSPECIFIED OSTEOARTHRITIS, UNSPECIFIED 07/02/2016 DEJAH REBOLLAR DO Ot S22.42XA MULTIPLE FRACTURES OF RIBS, LEFT SIDE, I 07/02/2016 DEJAH REBOLLAR DO Ot S36.039A UNSPECIFIED LACERATION OF SPLEEN, INITIA 07/02/2016 DEJAH REBOLLAR DO Ot W18.2XXA FALL IN (INTO) SHOWER OR EMPTY BATHTUB, 07/02/2016 DEJAH REBOLLAR DO Ot Y92.002 BATHRM OF [facility] 07/02/2016 DEJAH REBOLLAR DO Ot Z95.5 PRESENCE OF CORONARY ANGIOPLASTY IMPLANT 07/02/2016 DEJAH REBOLLAR DO Ot Z95.820 PERIPHERAL VASCULAR ANGIOPLASTY STATUS W 07/03/2016 DEJAH REBOLLAR DO Ot E11.42 TYPE 2 DIABETES MELLITUS WITH DIABETIC P 07/03/2016 DEJAH REBOLLAR DO Ot E11.51 TYPE 2 DIABETES W DIABETIC PERIPHERAL AN 07/03/2016 DEJAH REBOLLAR DO Ot E83.39 OTHER DISORDERS OF PHOSPHORUS METABOLISM 07/03/2016 DEJAH REBOLLAR DO Ot E87.6 HYPOKALEMIA 07/03/2016 DEJAH REBOLLAR DO Ot F32.9 MAJOR DEPRESSIVE DISORDER, SINGLE EPISOD 07/03/2016 DEJAH REBOLLAR DO Ot I10 ESSENTIAL (PRIMARY) HYPERTENSION 07/03/2016 DEJAH REBOLLAR DO Ot I25.10 ATHSCL HEART DISEASE OF [place] CORONARY 07/03/2016 DEJAH REBOLLAR DO Ot I25.2 OLD MYOCARDIAL INFARCTION 07/03/2016 DEJAH REBOLLAR DO Ot M19.90 UNSPECIFIED OSTEOARTHRITIS, UNSPECIFIED 07/03/2016 DEJAH REBOLLAR DO Ot S22.42XA MULTIPLE FRACTURES OF RIBS, LEFT SIDE, I 07/03/2016 DEJAH REBOLLAR DO Ot S36.039A UNSPECIFIED LACERATION OF SPLEEN, INITIA 07/03/2016 DEJAH REBOLLAR DO Ot W18.2XXA FALL IN (INTO) SHOWER OR EMPTY BATHTUB, 07/03/2016 DEJAH REBOLLAR DO Ot Y92.[address] [facility] SNGL 07/03/2016 DEJAH REBOLLAR DO Ot Z95.5 PRESENCE OF CORONARY ANGIOPLASTY IMPLANT 07/03/2016 DEJAH REBOLLAR DO, Ot Z95.820 PERIPHERAL VASCULAR ANGIOPLASTY STATUS W 07/03/2016 DEJAH REBOLLAR DO Ot D64.9 ANEMIA, UNSPECIFIED 07/03/2016 DEJAH REBOLLAR DO Ot E11.42 TYPE 2 DIABETES MELLITUS WITH DIABETIC P 07/03/2016 DEJAH REBOLLAR DO Ot E11.51 TYPE 2 DIABETES W DIABETIC PERIPHERAL AN 07/03/2016 DEJAH REBOLLAR DO Ot E83.39 OTHER DISORDERS OF PHOSPHORUS METABOLISM 07/03/2016 DEJAH REBOLLAR DO Ot E87.6 HYPOKALEMIA 07/03/2016 DEJAH REBOLLAR DO Ot F32.9 MAJOR DEPRESSIVE DISORDER, SINGLE EPISOD 07/03/2016 DEJAH REBOLLAR DO Ot I10 ESSENTIAL (PRIMARY) HYPERTENSION 07/03/2016 DEJAH REBOLLAR DO Ot I11.0 HYPERTENSIVE HEART DISEASE WITH HEART FA 07/03/2016 DEJAH REBOLLAR DO Ot I25.10 ATHSCL HEART DISEASE OF [place] CORONARY 07/03/2016 DEJAH REBOLLAR DO Ot I25.2 OLD MYOCARDIAL INFARCTION 07/03/2016 DEJAH REBOLLAR DO Ot I25.5 ISCHEMIC CARDIOMYOPATHY 07/03/2016 DEJAH REBOLLAR DO Ot I50.22 CHRONIC SYSTOLIC (CONGESTIVE) HEART FAIL 07/03/2016 DEJAH REBOLLAR DO Ot I65.23 OCCLUSION AND STENOSIS OF BILATERAL REAVES 07/03/2016 DEJAH REBOLLAR DO Ot M19.90 UNSPECIFIED OSTEOARTHRITIS, UNSPECIFIED 07/03/2016 DEJAH REBOLLAR DO Ot R41.89 OTH SYMPTOMS AND SIGNS W COGNITIVE FUNCT 07/03/2016 DEJAH REBOLLAR DO, Ot R42 DIZZINESS AND GIDDINESS 07/03/2016 DEJAH REBOLLAR DO Ot R53.1 WEAKNESS 07/03/2016 DEJAH REBOLLAR DO Ot S22.42XA MULTIPLE FRACTURES OF RIBS, LEFT SIDE, I 07/03/2016 DEJAH REBOLLAR DO Ot S36.039A UNSPECIFIED LACERATION OF SPLEEN, INITIA 07/03/2016 DEJAH REBOLLAR DO Ot W18.2XXA FALL IN (INTO) SHOWER OR EMPTY BATHTUB, 07/03/2016 DEJAH REBOLLAR DO Ot Y92.002 BATHRM OF [facility] NON-INSTITUT RESDNCE SNGL 07/03/2016 DEJAH REBOLLAR DO Ot Y99.8 OTHER EXTERNAL CAUSE STATUS 07/03/2016 JHON REBOLLAR DOHUGO Pulido Ot Z95.5 PRESENCE OF CORONARY ANGIOPLASTY IMPLANT 07/03/2016 KETURAH CHAMBERS DEJAH Ashok Ot Z95.820 PERIPHERAL VASCULAR ANGIOPLASTY STATUS W 07/03/2016 Ot V58.61 ANTICOAGULANTS,LT,CURRENT USE 07/03/2016 Ot V58.83 ENCOUNTER FOR THERAPEUTIC DRUG MONITORIN 07/07/2016 CATHIE PEARL DO Ot D50.0 IRON DEFICIENCY ANEMIA SECONDARY TO BLOO 07/07/2016 CATHIE PEARL DO Ot E11.42 TYPE 2 DIABETES MELLITUS WITH DIABETIC P 07/07/2016 CATHIE PEARL DO Ot E11.51 TYPE 2 DIABETES W DIABETIC PERIPHERAL AN 07/07/2016 CATHIE PEARL DO Ot E87.6 HYPOKALEMIA 07/07/2016 CATHIE PEARL DO Ot F09 UNSP MENTAL DISORDER DUE TO KNOWN PHYSIO 07/07/2016 CATHIE PEARL DO Ot F32.9 MAJOR DEPRESSIVE DISORDER, SINGLE EPISOD 07/07/2016 CATHIE PEARL DO Ot I11.0 HYPERTENSIVE HEART DISEASE WITH HEART FA 07/07/2016 CATHIE PEARL DO Ot I25.10 ATHSCL HEART DISEASE OF [place] CORONARY 07/07/2016 CATHIE PEARL DO Ot I25.5 ISCHEMIC CARDIOMYOPATHY 07/07/2016 CATHIE PEARL DO Ot I50.22 CHRONIC SYSTOLIC (CONGESTIVE) HEART FAIL 07/07/2016 CATHIE PEARL DO Ot I65.23 OCCLUSION AND STENOSIS OF BILATERAL REAVES 07/07/2016 CATHIE PEARL DO Ot M19.90 UNSPECIFIED OSTEOARTHRITIS, UNSPECIFIED 07/07/2016 CATHIE PEARL DO Ot R41.89 OTH SYMPTOMS AND SIGNS W COGNITIVE FUNCT 07/07/2016 CATHIE PEARL DO Ot R50.9 FEVER, UNSPECIFIED 07/07/2016 CATHIE PEARL DO Ot R53.81 OTHER MALAISE 07/07/2016 DELFINO PEARL DOI Ot S22.42XD MULTIPLE FX OF RIBS, LEFT SIDE, SUBS FOR 07/07/2016 RYANNE CHAMBERS CATHIE Ot S36.039D UNSPECIFIED LACERATION OF SPLEEN, SUBSEQ 07/07/2016 RYANNE CHAMBERSCATHIE Ot W18.2XXD FALL IN (INTO) SHOWER OR EMPTY BATHTUB, 07/07/2016 RYANNE DO CATHIE Ot Y92.002 BATHRM OF [facility] NONINSTITUT RESDNCE SNGL 07/07/2016 RYANNE CATHIE CHAMBERS Ot Y99.8 OTHER EXTERNAL CAUSE STATUS 07/07/2016 PEARLCATHIE MOSLEY DO Ot Z95.5 PRESENCE OF CORONARY ANGIOPLASTY IMPLANT 07/07/2016 CATHIE PEARL DO Ot Z95.820 PERIPHERAL VASCULAR ANGIOPLASTY STATUS W 07/14/2016 ALIZE LIEBERMAN MD Ot D64.9 ANEMIA, UNSPECIFIED 07/14/2016 ALIZE LIEBERMAN MD Ot E11.9 TYPE 2 DIABETES MELLITUS WITHOUT COMPLIC 07/14/2016 ALIZE LIEBERMAN MD Ot F03.90 UNSPECIFIED DEMENTIA WITHOUT BEHAVIORAL 07/14/2016 ALIZE LIEBERMAN MD Ot G62.9 POLYNEUROPATHY, UNSPECIFIED 07/14/2016 ALIZE LIEBERMAN MD Ot I10 ESSENTIAL (PRIMARY) HYPERTENSION 07/14/2016 ALIZE LIEBERMAN MD Ot I25.10 ATHSCL HEART DISEASE OF [place] CORONARY 07/14/2016 ALIZE LIEBERMAN MD Ot J90 PLEURAL EFFUSION, NOT ELSEWHERE CLASSIFI 07/14/2016 ALIZE LIEBERMAN MD Ot M19.90 UNSPECIFIED OSTEOARTHRITIS, UNSPECIFIED 07/14/2016 ALIZE LIEBERMAN MD Ot R29.6 REPEATED FALLS 07/14/2016 ALIZE LIEBERMAN MD Ot R53.1 WEAKNESS 07/14/2016 ALIZE LIEBERMAN MD Ot S22.42XD MULTIPLE FX OF RIBS, LEFT SIDE, SUBS FOR 07/14/2016 ALIZE LIEBERMAN MD Ot S36.039A UNSPECIFIED LACERATION OF SPLEEN, INITIA 07/14/2016 ALIZE LIEBERMAN MD Ot W19.XXXA UNSPECIFIED FALL, INITIAL ENCOUNTER 07/14/2016 ALIZE LIEBERMAN MD Ot Y92.[address] [facility] [address] IN [facility] NON-INSTITUT ( PRIVATE 07/14/2016 LUISANA BUSTAMANTE, ALIZE Burciaga Ot Z87.891 PERSONAL HISTORY OF NICOTINE DEPENDENCE 07/14/2016 LUISANA BUSTAMANTE, ALIZE Burciaga Ot Z95.5 PRESENCE OF CORONARY ANGIOPLASTY IMPLANT Procedures Code Description Performed By Performed On 45.13 OTHER ENDOSCOPY OF SM INTEST 06/20/2009 45.23 COLONOSCOPY 06/20 79.15 CLOSED RED-INT FIX FEMUR 08/30/2009 81.51 TOTAL HIP REPLACEMENT Xu Daniel MD 06/06/2012 [id number] OCCLUSION OF SPLENIC ARTERY WITH INTRALU 06/29/2016 [id number] FLUOROSCOPY OF HEPATIC ARTERY USING LOW 06/29/2016 [id number] FLUOROSCOPY OF SPLENIC ARTERIES USING LO 06/29/2016 [id number] FLUOROSCOPY OF PELVIC ARTERIES USING LOW 06/29/2016 Results Test Result Range Hemoglobin A1c - 05/19/16 14:09 Hemoglobin A1c 5.4 % 4.5-6.2 Complete blood count (CBC) with automated white blood cell (WBC) differential - 06/29/16 03:20 Blood leukocytes automated count (number/volume) 7.7 10*3/ uL 4.3-11.0 Blood erythrocytes automated count (number/volume) 4.31 10*6 /uL 4.35-5.85 Venous blood hemoglobin measurement (mass/volume) 12.1 g/dL 13.3-17.7 Blood hematocrit (volume fraction) 37 % 40-54 Automated erythrocyte mean corpuscular volume 86 [foz_us] 80-99 Automated erythrocyte mean corpuscular hemoglobin (mass per erythrocyte) 28 pg 25-34 Automated erythrocyte mean corpuscular hemoglobin concentration measurement ( mass/volume) 33 g/dL 32-36 Automated erythrocyte distribution width ratio 13.2 % 10.0-14.5 Automated blood platelet count (count/volume) 312 10*3/uL 130-400 Automated blood platelet mean volume measurement 7.7 [foz_us ] 7.4-10.4 Automated blood neutrophils/100 leukocytes 59 % 42-75 Automated blood lymphocytes/100 leukocytes 28 % 12-44 Blood monocytes/100 leukocytes 9 % 0-12 Automated blood eosinophils/100 leukocytes 3 % 0-10 Automated blood basophils/100 leukocytes 1 % 0-10 Blood neutrophils automated count (number/volume) 4.6 10*3 1.8-7.8 Blood lymphocytes automated count (number/volume) 2.2 10*3 1.0-4.0 Blood monocytes automated count (number/volume) 0.7 10*3 0.0-1.0 Automated eosinophil count 0.3 10*3/uL 0.0-0.3 Automated blood basophil count (count/volume) 0.0 10*3/uL 0.0-0.1 Comprehensive metabolic panel - 06/29/16 03:20 Serum or plasma sodium measurement (moles/volume) 137 mmol/ L 135-145 Serum or plasma potassium measurement (moles/volume) 3.8 mmol/L 3.6-5.0 Serum or plasma chloride measurement (moles/volume) 99 mmol/ L 98-107 Carbon dioxide 29 mmol/L 21-32 Serum or plasma anion gap determination (moles/volume) 9 mmol/L 5-14 Serum or plasma urea nitrogen measurement (mass/volume) 33 mg/dL 7-18 Serum or plasma creatinine measurement (mass/volume) 1.24 mg /dL 0.60-1.30 Serum or plasma urea nitrogen/creatinine mass ratio 27 NRG Serum or plasma creatinine measurement with calculation of estimated glomerular filtration rate 57 NRG Serum or plasma glucose measurement (mass/volume) 130 mg/dL 70-105 Serum or plasma calcium measurement (mass/volume) 9.1 mg/dL 8.5-10.1 Serum or plasma total bilirubin measurement (mass/volume) 0.4 mg/dL 0.1-1.0 Serum or plasma alkaline phosphatase measurement (enzymatic activity/volume) 74 U/L 40-136 Serum or plasma aspartate aminotransferase measurement (enzymatic activity/ volume) 21 U/L 5-34 Serum or plasma alanine aminotransferase measurement (enzymatic activity/volume ) 20 U/L 0-55 Serum or plasma protein measurement (mass/volume) 7.1 g/dL 6.4-8.2 Serum or plasma albumin measurement (mass/volume) 4.0 g/dL 3.2-4.5 Magnesium - 06/29/16 03:20 Magnesium 2.3 mg/dL 1.8-2.4 Serum or plasma troponin i.cardiac measurement (mass/volume) - 06/29/16 03:20 Serum or plasma troponin i.cardiac measurement (mass/volume) < ng/mL <0.30 Serum or plasma ethanol measurement (mass/volume) - 06/29/16 03:20 Serum or plasma ethanol measurement (mass/volume) < mg/dL <10 Blood type T Indirect antibody screen panel - 06/29/16 04:55 ABO+Rh group AP NRG Transfusion band number [id number] NRG Blood group antibody screen NEGATIVE NRG Whole blood hemoglobin and hematocrit panel - 06/29/16 06:01 Venous blood hemoglobin measurement (mass/volume) 11.6 g/dL 13.3-17.7 Blood hematocrit (volume fraction) 36 % 40-54 Venous blood hemoglobin measurement (mass/volume) - 06/29/16 13:54 Venous blood hemoglobin measurement (mass/volume) 9.3 g/dL 13.3-17.7 Arterial blood gas measurement - 06/29/16 21:45 Blood pCO2 41 mm[Hg] 35-45 Blood pO2 69 mm[Hg] 79-93 Arterial blood bicarbonate measurement (moles/volume) 25 mmol/L 23-27 Arterial blood base excess by calculation 1.0 mmol/L -2.5-2.5 Arterial blood oxygen saturation measurement 95 % 94-100 * Inhaled oxygen flow rate ROOM AIR NRG Arterial blood pH measurement with patient temperature correction 7.42 7.37-7.43 Arterial blood carbon dioxide, total measurement (moles/volume) 26.5 mmol/L 21.0-31.0 Body site RT RADIAL NRG Assessment of wrist artery patency prior to arterial puncture YES-POS NRG Setting of ventilation mode NO NRG Measurement of body temperature 100.3 NRG Capillary blood glucose measurement by glucometer (mass/volume) - 06/30/16 01: 18 Capillary blood glucose measurement by glucometer (mass/volume) 211 mg/dL 70-110 Complete blood count (CBC) with automated white blood cell (WBC) differential - 06/30/16 03:50 Blood leukocytes automated count (number/volume) 11.6 10*3/ uL 4.3-11.0 Blood erythrocytes automated count (number/volume) 3.10 10*6 /uL 4.35-5.85 Venous blood hemoglobin measurement (mass/volume) 8.7 g/dL 13.3-17.7 Blood hematocrit (volume fraction) 27 % 40-54 Automated erythrocyte mean corpuscular volume 87 [foz_us] 80-99 Automated erythrocyte mean corpuscular hemoglobin (mass per erythrocyte) 28 pg 25-34 Automated erythrocyte mean corpuscular hemoglobin concentration measurement ( mass/volume) 32 g/dL 32-36 Automated erythrocyte distribution width ratio 13.4 % 10.0-14.5 Automated blood platelet count (count/volume) 286 10*3/uL 130-400 Automated blood platelet mean volume measurement 8.1 [foz_us ] 7.4-10.4 Automated blood neutrophils/100 leukocytes 83 % 42-75 Automated blood lymphocytes/100 leukocytes 8 % 12-44 Blood monocytes/100 leukocytes 8 % 0-12 Automated blood eosinophils/100 leukocytes 0 % 0-10 Automated blood basophils/100 leukocytes 0 % 0-10 Blood neutrophils automated count (number/volume) 9.7 10*3 1.8-7.8 Blood lymphocytes automated count (number/volume) 1.0 10*3 1.0-4.0 Blood monocytes automated count (number/volume) 1.0 10*3 0.0-1.0 Automated eosinophil count 0.0 10*3/uL 0.0-0.3 Automated blood basophil count (count/volume) 0.0 10*3/uL 0.0-0.1 Whole blood basic metabolic panel - 06/30/16 03:50 Serum or plasma sodium measurement (moles/volume) 139 mmol/ L 135-145 Serum or plasma potassium measurement (moles/volume) 3.9 mmol/L 3.6-5.0 Serum or plasma chloride measurement (moles/volume) 106 mmol /L 98-107 Carbon dioxide 24 mmol/L 21-32 Serum or plasma anion gap determination (moles/volume) 9 mmol/L 5-14 Serum or plasma urea nitrogen measurement (mass/volume) 26 mg/dL 7-18 Serum or plasma creatinine measurement (mass/volume) 1.02 mg /dL 0.60-1.30 Serum or plasma urea nitrogen/creatinine mass ratio 25 NRG Serum or plasma creatinine measurement with calculation of estimated glomerular filtration rate > NRG Serum or plasma glucose measurement (mass/volume) 172 mg/dL 70-105 Serum or plasma calcium measurement (mass/volume) 8.5 mg/dL 8.5-10.1 Serum or plasma phosphate measurement (mass/volume) - 06/30/16 03:50 Serum or plasma phosphate measurement (mass/volume) 2.2 mg/ dL 2.3-4.7 Magnesium - 06/30/16 03:50 Magnesium 2.1 mg/dL 1.8-2.4 Capillary blood glucose measurement by glucometer (mass/volume) - 06/30/16 12: 32 Capillary blood glucose measurement by glucometer (mass/volume) 146 mg/dL 70-110 Capillary blood glucose measurement by glucometer (mass/volume) - 06/30/16 18: 10 Capillary blood glucose measurement by glucometer (mass/volume) 173 mg/dL 70-110 Capillary blood glucose measurement by glucometer (mass/volume) - 07/01/16 00: 13 Capillary blood glucose measurement by glucometer (mass/volume) 166 mg/dL 70-110 Complete blood count (CBC) with automated white blood cell (WBC) differential - 07/01/16 03:55 Blood leukocytes automated count (number/volume) 13.6 10*3/ uL 4.3-11.0 Blood erythrocytes automated count (number/volume) 2.96 10*6 /uL 4.35-5.85 Venous blood hemoglobin measurement (mass/volume) 8.3 g/dL 13.3-17.7 Blood hematocrit (volume fraction) 26 % 40-54 Automated erythrocyte mean corpuscular volume 87 [foz_us] 80-99 Automated erythrocyte mean corpuscular hemoglobin (mass per erythrocyte) 28 pg 25-34 Automated erythrocyte mean corpuscular hemoglobin concentration measurement ( mass/volume) 32 g/dL 32-36 Automated erythrocyte distribution width ratio 13.3 % 10.0-14.5 Automated blood platelet count (count/volume) 249 10*3/uL 130-400 Automated blood platelet mean volume measurement 8.1 [foz_us ] 7.4-10.4 Automated blood neutrophils/100 leukocytes 85 % 42-75 Automated blood lymphocytes/100 leukocytes 7 % 12-44 Blood monocytes/100 leukocytes 8 % 0-12 Automated blood eosinophils/100 leukocytes 0 % 0-10 Automated blood basophils/100 leukocytes 0 % 0-10 Blood neutrophils automated count (number/volume) 11.7 10*3 1.8-7.8 Blood lymphocytes automated count (number/volume) 0.9 10*3 1.0-4.0 Blood monocytes automated count (number/volume) 1.1 10*3 0.0-1.0 Automated eosinophil count 0.0 10*3/uL 0.0-0.3 Automated blood basophil count (count/volume) 0.0 10*3/uL 0.0-0.1 Whole blood basic metabolic panel - 07/01/16 03:55 Serum or plasma sodium measurement (moles/volume) 139 mmol/ L 135-145 Serum or plasma potassium measurement (moles/volume) 3.5 mmol/L 3.6-5.0 Serum or plasma chloride measurement (moles/volume) 108 mmol /L 98-107 Carbon dioxide 21 mmol/L 21-32 Serum or plasma anion gap determination (moles/volume) 10 mmol/L 5-14 Serum or plasma urea nitrogen measurement (mass/volume) 20 mg/dL 7-18 Serum or plasma creatinine measurement (mass/volume) 0.84 mg /dL 0.60-1.30 Serum or plasma urea nitrogen/creatinine mass ratio 24 NRG Serum or plasma creatinine measurement with calculation of estimated glomerular filtration rate > NRG Serum or plasma glucose measurement (mass/volume) 155 mg/dL 70-105 Serum or plasma calcium measurement (mass/volume) 8.2 mg/dL 8.5-10.1 Serum or plasma phosphate measurement (mass/volume) - 07/01/16 03:55 Serum or plasma phosphate measurement (mass/volume) 1.6 mg/ dL 2.3-4.7 Magnesium - 07/01/16 03:55 Magnesium 1.8 mg/dL 1.8-2.4 Blood manual differential performed detection - 07/01/16 03:55 Blood monocytes/100 leukocytes 7 % NRG Manual blood segmented neutrophils/100 leukocytes 87 % NRG Blood band neutrophils/100 leukocytes 0 % NRG Manual blood lymphocytes/100 leukocytes 6 % NRG Manual eosinophils/100 leukocytes in nose 0 % NRG Manual blood basophils/100 leukocytes 0 % NRG Blood poikilocytosis detection by light microscopy SLIGHT NRG Blood hypochromia detection by light microscopy SLIGHT NRG Capillary blood glucose measurement by glucometer (mass/volume) - 07/01/16 06: 38 Capillary blood glucose measurement by glucometer (mass/volume) 143 mg/dL 70-110 Capillary blood glucose measurement by glucometer (mass/volume) - 07/01/16 11: 25 Capillary blood glucose measurement by glucometer (mass/volume) 133 mg/dL 70-110 Capillary blood glucose measurement by glucometer (mass/volume) - 07/01/16 18: 49 Capillary blood glucose measurement by glucometer (mass/volume) 157 mg/dL 70-110 Capillary blood glucose measurement by glucometer (mass/volume) - 07/01/16 22: 15 Capillary blood glucose measurement by glucometer (mass/volume) 166 mg/dL 70-110 Complete urinalysis with reflex to culture - 07/01/16 22:30 Urine color determination YELLOW NRG Urine clarity determination CLEAR NRG Urine pH measurement by test strip 6.5 5 -9 Specific gravity of urine by test strip 1.015 1.016-1.022 Urine protein assay by test strip, semi-quantitative 1+ NEGATIVE Urine glucose detection by automated test strip 4+ NEGATIVE Erythrocytes detection in urine sediment by light microscopy 1+ NEGATIVE Urine ketones detection by automated test strip NEGATIVE NEGATIVE Urine nitrite detection by test strip NEGATIVE NEGATIVE Urine total bilirubin detection by test strip NEGATIVE NEGATIVE Urine urobilinogen measurement by automated test strip (mass/volume) NORMAL NORMAL Urine leukocyte esterase detection by dipstick NEGATIVE NEGATIVE Automated urine sediment erythrocyte count by microscopy (number/high power field) [HPF] NRG Automated urine sediment leukocyte count by microscopy (number/high power field ) [HPF] NRG Bacteria detection in urine sediment by light microscopy NONE NRG Squamous epithelial cells detection in urine sediment by light microscopy RARE NRG Crystals detection in urine sediment by light microscopy NONE NRG Casts detection in urine sediment by light microscopy NONE NRG Mucus detection in urine sediment by light microscopy NEGATIVE NRG Complete urinalysis with reflex to culture NO NRG Complete blood count (CBC) with automated white blood cell (WBC) differential - 07/02/16 03:25 Blood leukocytes automated count (number/volume) 11.5 10*3/ uL 4.3-11.0 Blood erythrocytes automated count (number/volume) 2.93 10*6 /uL 4.35-5.85 Venous blood hemoglobin measurement (mass/volume) 8.2 g/dL 13.3-17.7 Blood hematocrit (volume fraction) 25 % 40-54 Automated erythrocyte mean corpuscular volume 86 [foz_us] 80-99 Automated erythrocyte mean corpuscular hemoglobin (mass per erythrocyte) 28 pg 25-34 Automated erythrocyte mean corpuscular hemoglobin concentration measurement ( mass/volume) 33 g/dL 32-36 Automated erythrocyte distribution width ratio 13.4 % 10.0-14.5 Automated blood platelet count (count/volume) 250 10*3/uL 130-400 Automated blood platelet mean volume measurement 8.5 [foz_us ] 7.4-10.4 Automated blood neutrophils/100 leukocytes 83 % 42-75 Automated blood lymphocytes/100 leukocytes 9 % 12-44 Blood monocytes/100 leukocytes 8 % 0-12 Automated blood eosinophils/100 leukocytes 0 % 0-10 Automated blood basophils/100 leukocytes 0 % 0-10 Blood neutrophils automated count (number/volume) 9.5 10*3 1.8-7.8 Blood lymphocytes automated count (number/volume) 1.0 10*3 1.0-4.0 Blood monocytes automated count (number/volume) 0.9 10*3 0.0-1.0 Automated eosinophil count 0.0 10*3/uL 0.0-0.3 Automated blood basophil count (count/volume) 0.0 10*3/uL 0.0-0.1 Blood blood smear finding identification by light microscopy YES [facility] Whole blood basic metabolic panel - 07/02/16 03:25 Serum or plasma sodium measurement (moles/volume) 136 mmol/ L 135-145 Serum or plasma potassium measurement (moles/volume) 3.2 mmol/L 3.6-5.0 Serum or plasma chloride measurement (moles/volume) 105 mmol /L 98-107 Carbon dioxide 22 mmol/L 21-32 Serum or plasma anion gap determination (moles/volume) 9 mmol/L 5-14 Serum or plasma urea nitrogen measurement (mass/volume) 19 mg/dL 7-18 Serum or plasma creatinine measurement (mass/volume) 0.80 mg /dL 0.60-1.30 Serum or plasma urea nitrogen/creatinine mass ratio 24 [facility] Serum or plasma creatinine measurement with calculation of estimated glomerular filtration rate > [facility] Serum or plasma glucose measurement (mass/volume) 150 mg/dL 70-105 Serum or plasma calcium measurement (mass/volume) 8.3 mg/dL 8.5-10.1 Serum or plasma phosphate measurement (mass/volume) - 07/02/16 03:25 Serum or plasma phosphate measurement (mass/volume) 2.1 mg/ dL 2.3-4.7 Magnesium - 07/02/16 03:25 Magnesium 1.8 mg/dL 1.8-2.4 Capillary blood glucose measurement by glucometer (mass/volume) - 07/02/16 06: 21 Capillary blood glucose measurement by glucometer (mass/volume) 162 mg/dL 70-110 Capillary blood glucose measurement by glucometer (mass/volume) - 07/02/16 11: 55 Capillary blood glucose measurement by glucometer (mass/volume) 180 mg/dL 70-110 Capillary blood glucose measurement by glucometer (mass/volume) - 07/02/16 17: 53 Capillary blood glucose measurement by glucometer (mass/volume) 134 mg/dL 70-110 Capillary blood glucose measurement by glucometer (mass/volume) - 07/03/16 00: 07 Capillary blood glucose measurement by glucometer (mass/volume) 210 mg/dL 70-110 Complete blood count (CBC) with automated white blood cell (WBC) differential - 07/03/16 04:30 Blood leukocytes automated count (number/volume) 8.2 10*3/ uL 4.3-11.0 Blood erythrocytes automated count (number/volume) 2.81 10*6 /uL 4.35-5.85 Venous blood hemoglobin measurement (mass/volume) 7.8 g/dL 13.3-17.7 Blood hematocrit (volume fraction) 24 % 40-54 Automated erythrocyte mean corpuscular volume 85 [foz_us] 80-99 Automated erythrocyte mean corpuscular hemoglobin (mass per erythrocyte) 28 pg 25-34 Automated erythrocyte mean corpuscular hemoglobin concentration measurement ( mass/volume) 33 g/dL 32-36 Automated erythrocyte distribution width ratio 13.3 % 10.0-14.5 Automated blood platelet count (count/volume) 267 10*3/uL 130-400 Automated blood platelet mean volume measurement 8.6 [foz_us ] 7.4-10.4 Automated blood neutrophils/100 leukocytes 76 % 42-75 Automated blood lymphocytes/100 leukocytes 13 % 12-44 Blood monocytes/100 leukocytes 9 % 0-12 Automated blood eosinophils/100 leukocytes 2 % 0-10 Automated blood basophils/100 leukocytes 0 % 0-10 Blood neutrophils automated count (number/volume) 6.2 10*3 1.8-7.8 Blood lymphocytes automated count (number/volume) 1.1 10*3 1.0-4.0 Blood monocytes automated count (number/volume) 0.7 10*3 0.0-1.0 Automated eosinophil count 0.1 10*3/uL 0.0-0.3 Automated blood basophil count (count/volume) 0.0 10*3/uL 0.0-0.1 Whole blood basic metabolic panel - 07/03/16 04:30 Serum or plasma sodium measurement (moles/volume) 134 mmol/ L 135-145 Serum or plasma potassium measurement (moles/volume) 3.2 mmol/L 3.6-5.0 Serum or plasma chloride measurement (moles/volume) 105 mmol /L 98-107 Carbon dioxide 20 mmol/L 21-32 Serum or plasma anion gap determination (moles/volume) 9 mmol/L 5-14 Serum or plasma urea nitrogen measurement (mass/volume) 19 mg/dL 7-18 Serum or plasma creatinine measurement (mass/volume) 0.71 mg /dL 0.60-1.30 Serum or plasma urea nitrogen/creatinine mass ratio 27 NRG Serum or plasma creatinine measurement with calculation of estimated glomerular filtration rate > NRG Serum or plasma glucose measurement (mass/volume) 128 mg/dL 70-105 Serum or plasma calcium measurement (mass/volume) 8.2 mg/dL 8.5-10.1 Serum or plasma phosphate measurement (mass/volume) - 07/03/16 04:30 Serum or plasma phosphate measurement (mass/volume) 2.2 mg/ dL 2.3-4.7 Magnesium - 07/03/16 04:30 Magnesium 1.9 mg/dL 1.8-2.4 Capillary blood glucose measurement by glucometer (mass/volume) - 07/03/16 11: 56 Capillary blood glucose measurement by glucometer (mass/volume) 146 mg/dL 70-110 Capillary blood glucose measurement by glucometer (mass/volume) - 07/03/16 17: 46 Capillary blood glucose measurement by glucometer (mass/volume) 147 mg/dL 70-110 Capillary blood glucose measurement by glucometer (mass/volume) - 07/03/16 23: 56 Capillary blood glucose measurement by glucometer (mass/volume) 179 mg/dL 70-110 Capillary blood glucose measurement by glucometer (mass/volume) - 07/04/16 05: 03 Capillary blood glucose measurement by glucometer (mass/volume) 149 mg/dL 70-110 Capillary blood glucose measurement by glucometer (mass/volume) - 07/04/16 12: 10 Capillary blood glucose measurement by glucometer (mass/volume) 176 mg/dL 70-110 Capillary blood glucose measurement by glucometer (mass/volume) - 07/04/16 18: 14 Capillary blood glucose measurement by glucometer (mass/volume) 143 mg/dL 70-110 Capillary blood glucose measurement by glucometer (mass/volume) - 07/05/16 00: 01 Capillary blood glucose measurement by glucometer (mass/volume) 150 mg/dL 70-110 Capillary blood glucose measurement by glucometer (mass/volume) - 07/05/16 06: 27 Capillary blood glucose measurement by glucometer (mass/volume) 155 mg/dL 70-110 Capillary blood glucose measurement by glucometer (mass/volume) - 07/05/16 12: 03 Capillary blood glucose measurement by glucometer (mass/volume) 167 mg/dL 70-110 Capillary blood glucose measurement by glucometer (mass/volume) - 07/05/16 17: 55 Capillary blood glucose measurement by glucometer (mass/volume) 177 mg/dL 70-110 Capillary blood glucose measurement by glucometer (mass/volume) - 07/06/16 00: 27 Capillary blood glucose measurement by glucometer (mass/volume) 202 mg/dL 70-110 Automated blood complete blood count (hemogram) panel - 07/06/16 04:08 Blood leukocytes automated count (number/volume) 8.3 10*3/ uL 4.3-11.0 Blood erythrocytes automated count (number/volume) 2.97 10*6 /uL 4.35-5.85 Venous blood hemoglobin measurement (mass/volume) 8.3 g/dL 13.3-17.7 Blood hematocrit (volume fraction) 26 % 40-54 Automated erythrocyte mean corpuscular volume 86 [foz_us] 80-99 Automated erythrocyte mean corpuscular hemoglobin (mass per erythrocyte) 28 pg 25-34 Automated erythrocyte mean corpuscular hemoglobin concentration measurement ( mass/volume) 33 g/dL 32-36 Automated erythrocyte distribution width ratio 14.5 % 10.0-14.5 Automated blood platelet count (count/volume) 424 10*3/uL 130-400 Automated blood platelet mean volume measurement 8.7 [foz_us ] 7.4-10.4 Whole blood basic metabolic panel - 07/06/16 04:08 Serum or plasma sodium measurement (moles/volume) 138 mmol/ L 135-145 Serum or plasma potassium measurement (moles/volume) 3.3 mmol/L 3.6-5.0 Serum or plasma chloride measurement (moles/volume) 109 mmol /L 98-107 Carbon dioxide 21 mmol/L 21-32 Serum or plasma anion gap determination (moles/volume) 8 mmol/L 5-14 Serum or plasma urea nitrogen measurement (mass/volume) 18 mg/dL 7-18 Serum or plasma creatinine measurement (mass/volume) 0.77 mg /dL 0.60-1.30 Serum or plasma urea nitrogen/creatinine mass ratio 23 NRG Serum or plasma creatinine measurement with calculation of estimated glomerular filtration rate > NRG Serum or plasma glucose measurement (mass/volume) 145 mg/dL 70-105 Serum or plasma calcium measurement (mass/volume) 8.6 mg/dL 8.5-10.1 IRON TEST - 07/06/16 04:45 Serum or plasma iron measurement (mass/volume) 16 % 40-180 Capillary blood glucose measurement by glucometer (mass/volume) - 07/06/16 12: 05 Capillary blood glucose measurement by glucometer (mass/volume) 134 mg/dL 70-110 Capillary blood glucose measurement by glucometer (mass/volume) - 07/06/16 19: 01 Capillary blood glucose measurement by glucometer (mass/volume) 203 mg/dL 70-110 Capillary blood glucose measurement by glucometer (mass/volume) - 07/07/16 00: 55 Capillary blood glucose measurement by glucometer (mass/volume) 122 mg/dL 70-110 Complete blood count (CBC) with automated white blood cell (WBC) differential - 07/07/16 04:30 Blood leukocytes automated count (number/volume) 7.4 10*3/ uL 4.3-11.0 Blood erythrocytes automated count (number/volume) 3.08 10*6 /uL 4.35-5.85 Venous blood hemoglobin measurement (mass/volume) 8.3 g/dL 13.3-17.7 Blood hematocrit (volume fraction) 27 % 40-54 Automated erythrocyte mean corpuscular volume 86 [foz_us] 80-99 Automated erythrocyte mean corpuscular hemoglobin (mass per erythrocyte) 27 pg 25-34 Automated erythrocyte mean corpuscular hemoglobin concentration measurement ( mass/volume) 31 g/dL 32-36 Automated erythrocyte distribution width ratio 14.5 % 10.0-14.5 Automated blood platelet count (count/volume) 440 10*3/uL 130-400 Automated blood platelet mean volume measurement 8.2 [foz_us ] 7.4-10.4 Automated blood neutrophils/100 leukocytes 72 % 42-75 Automated blood lymphocytes/100 leukocytes 15 % 12-44 Blood monocytes/100 leukocytes 9 % 0-12 Automated blood eosinophils/100 leukocytes 4 % 0-10 Automated blood basophils/100 leukocytes 1 % 0-10 Blood neutrophils automated count (number/volume) 5.3 10*3 1.8-7.8 Blood lymphocytes automated count (number/volume) 1.1 10*3 1.0-4.0 Blood monocytes automated count (number/volume) 0.7 10*3 0.0-1.0 Automated eosinophil count 0.3 10*3/uL 0.0-0.3 Automated blood basophil count (count/volume) 0.0 10*3/uL 0.0-0.1 Comprehensive metabolic panel - 07/07/16 04:30 Serum or plasma sodium measurement (moles/volume) 136 mmol/ L 135-145 Serum or plasma potassium measurement (moles/volume) 3.5 mmol/L 3.6-5.0 Serum or plasma chloride measurement (moles/volume) 105 mmol /L 98-107 Carbon dioxide 22 mmol/L 21-32 Serum or plasma anion gap determination (moles/volume) 9 mmol/L 5-14 Serum or plasma urea nitrogen measurement (mass/volume) 16 mg/dL 7-18 Serum or plasma creatinine measurement (mass/volume) 0.79 mg /dL 0.60-1.30 Serum or plasma urea nitrogen/creatinine mass ratio 20 NRG Serum or plasma creatinine measurement with calculation of estimated glomerular filtration rate > NRG Serum or plasma glucose measurement (mass/volume) 121 mg/dL 70-105 Serum or plasma calcium measurement (mass/volume) 8.4 mg/dL 8.5-10.1 Serum or plasma total bilirubin measurement (mass/volume) 0.7 mg/dL 0.1-1.0 Serum or plasma alkaline phosphatase measurement (enzymatic activity/volume) 91 U/L 40-136 Serum or plasma aspartate aminotransferase measurement (enzymatic activity/ volume) 90 U/L 5-34 Serum or plasma alanine aminotransferase measurement (enzymatic activity/volume ) 122 U/L 0-55 Serum or plasma protein measurement (mass/volume) 6.0 g/dL 6.4-8.2 Serum or plasma albumin measurement (mass/volume) 3.0 g/dL 3.2-4.5 Capillary blood glucose measurement by glucometer (mass/volume) - 07/07/16 14: 24 Capillary blood glucose measurement by glucometer (mass/volume) 119 mg/dL 70-110 Complete blood count (CBC) with automated white blood cell (WBC) differential - 07/13/16 16:08 Blood leukocytes automated count (number/volume) 7.2 10*3/ uL 4.3-11.0 Blood erythrocytes automated count (number/volume) 3.23 10*6 /uL 4.35-5.85 Venous blood hemoglobin measurement (mass/volume) 8.7 g/dL 13.3-17.7 Blood hematocrit (volume fraction) 28 % 40-54 Automated erythrocyte mean corpuscular volume 86 [foz_us] 80-99 Automated erythrocyte mean corpuscular hemoglobin (mass per erythrocyte) 27 pg 25-34 Automated erythrocyte mean corpuscular hemoglobin concentration measurement ( mass/volume) 31 g/dL 32-36 Automated erythrocyte distribution width ratio 14.4 % 10.0-14.5 Automated blood platelet count (count/volume) 462 10*3/uL 130-400 Automated blood platelet mean volume measurement 8.2 [foz_us ] 7.4-10.4 Automated blood neutrophils/100 leukocytes 71 % 42-75 Automated blood lymphocytes/100 leukocytes 16 % 12-44 Blood monocytes/100 leukocytes 10 % 0-12 Automated blood eosinophils/100 leukocytes 3 % 0-10 Automated blood basophils/100 leukocytes 1 % 0-10 Blood neutrophils automated count (number/volume) 5.1 10*3 1.8-7.8 Blood lymphocytes automated count (number/volume) 1.2 10*3 1.0-4.0 Blood monocytes automated count (number/volume) 0.7 10*3 0.0-1.0 Automated eosinophil count 0.2 10*3/uL 0.0-0.3 Automated blood basophil count (count/volume) 0.0 10*3/uL 0.0-0.1 Complete urinalysis with reflex to culture - 07/13/16 16:08 Urine color determination YELLOW NRG Urine clarity determination CLEAR NRG Urine pH measurement by test strip 6 5- 9 Specific gravity of urine by test strip 1.015 1.016-1.022 Urine protein assay by test strip, semi-quantitative NEGATIVE NEGATIVE Urine glucose detection by automated test strip NEGATIVE NEGATIVE Erythrocytes detection in urine sediment by light microscopy 1+ NEGATIVE Urine ketones detection by automated test strip NEGATIVE NEGATIVE Urine nitrite detection by test strip NEGATIVE NEGATIVE Urine total bilirubin detection by test strip NEGATIVE NEGATIVE Urine urobilinogen measurement by automated test strip (mass/volume) 8 mg/dL NORMAL Urine leukocyte esterase detection by dipstick NEGATIVE NEGATIVE Automated urine sediment erythrocyte count by microscopy (number/high power field) RARE NRG Automated urine sediment leukocyte count by microscopy (number/high power field ) [HPF] NRG Bacteria detection in urine sediment by light microscopy NEGATIVE NRG Crystals detection in urine sediment by light microscopy NONE NRG Casts detection in urine sediment by light microscopy NONE NRG Mucus detection in urine sediment by light microscopy MODERATE NRG Complete urinalysis with reflex to culture NO [facility] Comprehensive metabolic panel - 07/13/16 16:08 Serum or plasma sodium measurement (moles/volume) 133 mmol/ L 135-145 Serum or plasma potassium measurement (moles/volume) 3.5 mmol/L 3.6-5.0 Serum or plasma chloride measurement (moles/volume) 98 mmol/ L 98-107 Carbon dioxide 28 mmol/L 21-32 Serum or plasma anion gap determination (moles/volume) 7 mmol/L 5-14 Serum or plasma urea nitrogen measurement (mass/volume) 12 mg/dL 7-18 Serum or plasma creatinine measurement (mass/volume) 1.01 mg /dL 0.60-1.30 Serum or plasma urea nitrogen/creatinine mass ratio 12 NRG Serum or plasma creatinine measurement with calculation of estimated glomerular filtration rate > NRG Serum or plasma glucose measurement (mass/volume) 140 mg/dL 70-105 Serum or plasma calcium measurement (mass/volume) 8.4 mg/dL 8.5-10.1 Serum or plasma total bilirubin measurement (mass/volume) 0.8 mg/dL 0.1-1.0 Serum or plasma alkaline phosphatase measurement (enzymatic activity/volume) 86 U/L 40-136 Serum or plasma aspartate aminotransferase measurement (enzymatic activity/ volume) 26 U/L 5-34 Serum or plasma alanine aminotransferase measurement (enzymatic activity/volume ) 38 U/L 0-55 Serum or plasma protein measurement (mass/volume) 6.2 g/dL 6.4-8.2 Serum or plasma albumin measurement (mass/volume) 2.9 g/dL 3.2-4.5 Complete blood count (CBC) with automated white blood cell (WBC) differential - 07/14/16 06:09 Blood leukocytes automated count (number/volume) 5.6 10*3/ uL 4.3-11.0 Blood erythrocytes automated count (number/volume) 3.08 10*6 /uL 4.35-5.85 Venous blood hemoglobin measurement (mass/volume) 8.4 g/dL 13.3-17.7 Blood hematocrit (volume fraction) 27 % 40-54 Automated erythrocyte mean corpuscular volume 87 [foz_us] 80-99 Automated erythrocyte mean corpuscular hemoglobin (mass per erythrocyte) 27 pg 25-34 Automated erythrocyte mean corpuscular hemoglobin concentration measurement ( mass/volume) 31 g/dL 32-36 Automated erythrocyte distribution width ratio 14.5 % 10.0-14.5 Automated blood platelet count (count/volume) 444 10*3/uL 130-400 Automated blood platelet mean volume measurement 7.9 [foz_us ] 7.4-10.4 Automated blood neutrophils/100 leukocytes 66 % 42-75 Automated blood lymphocytes/100 leukocytes 19 % 12-44 Blood monocytes/100 leukocytes 11 % 0-12 Automated blood eosinophils/100 leukocytes 4 % 0-10 Automated blood basophils/100 leukocytes 1 % 0-10 Blood neutrophils automated count (number/volume) 3.7 10*3 1.8-7.8 Blood lymphocytes automated count (number/volume) 1.0 10*3 1.0-4.0 Blood monocytes automated count (number/volume) 0.6 10*3 0.0-1.0 Automated eosinophil count 0.3 10*3/uL 0.0-0.3 Automated blood basophil count (count/volume) 0.0 10*3/uL 0.0-0.1 Encounters ACCT No. Visit Date/Time Discharge Status Pt. Type Provider Facility Loc./Unit Complaint [id number] 06/06/2012 09:06:00 2011 14:14:00 DIS Inpatient María BUSTAMANTE, Xu Suarez [address]
--- NOTE | 2016-08-06 15:45 | ED Fall/Injury ---
General Chief Complaint: Trauma-Non Activation Stated Complaint: FALL Nursing Triage Note: PT STATES HE HAS BEEN FALLING A LOT LATELY. GRAND-DAUGHTER AND DPOA STATES PT FELL AND BROKE SOME RIBS AND SPLEEN IN EARLY JUN 2016. PT JUST LEFT VIA [facility] [place] ON 08/03/16. GRAND-DAUGHTER STATES IT SEEMS LIKE HE BLACKED OUT TODAY. Source: patient Exam Limitations: no limitations History of Present Illness Time seen by provider: 15:42 Initial Comments To ER conveyed by his granddaughter with reports of frequent falls. 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 He reports to me that he's been "passing out" over the past 2 weeks which causes him to fall. He denies shortness of breath, abdominal pain or general weakness. He just got out of the [facility] for rehabilitation. Primary care provider is Dr. Rodriguez whom I believe practices in [facility]. Granddaughter states that he's been living with her for the past few days and has been taking more than prescribed of his morphine pills in the evenings. She states he was suicidal today and attempted to walk out of her house into traffic because he states he would not go back into via [facility], the only alternative was to . She states that he forgets that he falls and is increasingly confused. Occurred: just prior to arrival Severity: moderate Context: fainted Loss of Consciousness: no loss of consciousness Allergies and Home Medications Allergies Coded Allergies: No Known Drug Allergies (Verified , 07/03/16) Home Medications Citalopram Hydrobromide 10 Mg Tablet 10 MG PO DAILY (Reported) Fenofibrate Nanocrystallized 145 Mg Tablet 145 MG PO DAILY (Reported) Liraglutide 0.6 Mg/0.1 Ml Pen.injctr 1.2 MG SQ DAILY (Reported) Lubiprostone 24 Mcg Capsule 24 MCG PO DAILY (Reported) LAST FILLED 04/07/16 #85 Morphine Sulfate 60 Mg Tablet.er 60 MG PO BID (Reported) Morphine Sulfate 15 Mg Tablet 15 MG PO Q6H PRN PRN PAIN (Reported) Polyethylene Glycol 3350 17 Gm Powd.pack 17 GM PO DAILY PRN PRN CONSTIPATION ( Reported) Pregabalin 225 Mg Capsule 225 MG PO BID (Reported) Constitutional: see HPI Eyes: No Symptoms Reported Ears, Nose, Mouth, Throat: no symptoms reported Respiratory: no symptoms reported Cardiovascular: no symptoms reported Genitourinary: no symptoms reported Musculoskeletal: no symptoms reported Skin: no symptoms reported Psychiatric/Neurological: No Symptoms Reported Past Abhtwer-Ablrjo-Uiemuo Hx Patient Social History Alcohol Use: Denies Use Recreational Drug Use: No Smoking Status: Former Smoker Type Used: Cigarettes Former Smoker/When Quit: Oct 07, 2004 Recent Foreign Travel: No Contact w/Someone Who Travel: No Recent Infectious Disease Expo: No Recent Hopitalizations: Yes (REHAB FROM 07/2016) Immunizations Up To Date Date of Pneumonia Vaccine: Oct 12, 2011 Date of Influenza Vaccine: Mar 21, 2016 Seasonal Allergies Seasonal Allergies: No Surgeries HX Surgeries: Yes (SPLEENECTOMY) Surgeries: Coronary Stent, Gallbladder, Orthopedic, Vascular Surgery Respiratory Hx Respiratory Disorders: No Cardiovascular Hx Cardiac Disorders: Yes Cardiac Disorders: Coronary Artery Disease, Heart Attack, Hypertension, Peripheral Vascular Neurological Hx Neurological Disorders: Yes Neurological Disorders: Neuropathy Reproductive System Hx Reproductive Disorders: No Sexually Transmitted Disease: No Genitourinary Hx Genitourinary Disorders: Yes Genitourinary Disorders: UTI-Chronic Gastrointestinal Hx Gastrointestinal Disorders: No Musculoskeletal Hx Musculoskeletal Disorders: Yes Musculoskeletal Disorders: Arthritis Endocrine Hx Endocrine Disorders: Yes Endocrine Disorders: Diabetes, Non-Insulin dep HEENT HX ENT Disorders: No Cancer Hx Cancer: No Psychosocial Hx Psychiatric Problems: Yes Behavioral Health Disorders: Depression Integumentary HX Skin/Integumentary Disorder: No Blood Transfusions Hx Blood Disorders: No Adverse Reaction to a Blood Tr: No Family Medical History Significant Family History: No Pertinent Family Hx, Cancer, Diabetes Family Medial History: Colon cancer G8 BROTHER, Onset:55 FHx: brain tumor G8 SISTER Physical Exam Vital Signs Vital Sign - Last 12Hours 08/06/16 15:22 Temp 98.3 Pulse 76 Resp 18 B/P 108/69 Pulse Ox 94 O2 Delivery Room Air Capillary Refill : Less Than 3 Seconds General Appearance: WD/WN no apparent distress HEENT: PERRL/EOMI normal ENT inspection Neck: non-tender full range of motion Cardiovascular: regular rate, rhythm no murmur Respiratory: normal breath sounds no respiratory distress no accessory muscle use Gastrointestinal: normal bowel sounds non tender soft other (no abdominal ecchymosis) Extremities: normal range of motion non-tender Neurologic/Psychiatric: alert normal mood/affect oriented x 3 Skin: normal color warm/dry Manasa Coma Score Best Eye Response: (4) Open Spontaneously Best Verbal Response: (5) Oriented Best Motor Response: (6) Obeys Commands Manasa Total: 15 Progress/Results/Core Measures Results/Orders Lab Results Laboratory Tests Test 08/06/16 15:40 08/06/16 15:50 Range/Units Ur Tricyclic Antidepressants Screen NEGATIVE NEGATIVE Urine Amphetamines Screen NEGATIVE NEGATIVE Urine Bacteria NEGATIVE /HPF Urine Barbiturates Screen NEGATIVE NEGATIVE Urine Benzodiazepines Screen NEGATIVE NEGATIVE Urine Bilirubin NEGATIVE NEGATIVE Urine Cannabinoids Screen NEGATIVE NEGATIVE Urine Casts NONE /LPF Urine Clarity CLEAR Urine Cocaine Screen NEGATIVE NEGATIVE Urine Color YELLOW Urine Crystals NONE /LPF Urine Culture Indicated NO Urine Glucose (UA) NEGATIVE NEGATIVE Urine Ketones NEGATIVE NEGATIVE Urine Leukocyte Esterase NEGATIVE NEGATIVE Urine Methadone Screen NEGATIVE NEGATIVE Urine Methamphetamines Screen NEGATIVE NEGATIVE Urine Mucus NEGATIVE /LPF Urine Nitrite NEGATIVE NEGATIVE Urine Opiates Screen POSITIVE H NEGATIVE Urine Oxycodone Screen NEGATIVE NEGATIVE Urine Phencyclidine Screen NEGATIVE NEGATIVE Urine Propoxyphene Screen NEGATIVE NEGATIVE Urine Protein NEGATIVE NEGATIVE Urine RBC 0-2 /HPF Urine RBC (Auto) 1+ H NEGATIVE Urine Specific [place] 1.010 L 1.016-1.022 Urine Urobilinogen NORMAL NORMAL MG/DL Urine WBC RARE /HPF Urine pH 7 5-9 Activated Partial Thromboplast Time 36 H 24-35 SEC Alanine Aminotransferase (ALT/SGPT) 10 0-55 U/L Albumin 3.5 3.2-4.5 G/DL Alkaline Phosphatase 62 40-136 U/L Anion Gap 6 5-14 MMOL/L Aspartate Amino Transf (AST/SGOT) 21 5-34 U/L B-Type Natriuretic Peptide 57.2 <100.0 PG/ML BUN/Creatinine Ratio 24 Basophils # (Auto) 0.0 0.0-0.1 10^3/uL Basophils (%) (Auto) 1 0-10 % Blood Urea Nitrogen 23 H 7-18 MG/DL Calcium Level 9.2 8.5-10.1 MG/DL Carbon Dioxide Level 27 21-32 MMOL/L Chloride Level 102 98-107 MMOL/L Creatinine 0.97 0.60-1.30 MG/DL Eosinophils # (Auto) 0.2 0.0-0.3 10^3/uL Eosinophils (%) (Auto) 4 0-10 % Estimat Glomerular Filtration Rate > 60 Glucose Level 85 70-105 MG/DL Hematocrit 36 L 40-54 % Hemoglobin 11.4 L 13.3-17.7 G/DL INR Comment 1.1 0.8-1.4 Lymphocytes # (Auto) 2.0 1.0-4.0 X 10^3 Lymphocytes (%) (Auto) 34 12-44 % Mean Corpuscular Hemoglobin 26 25-34 PG Mean Corpuscular Hemoglobin Concent 32 32-36 G/DL Mean Corpuscular Volume 83 80-99 FL Mean Platelet Volume 8.1 7.4-10.4 FL Monocytes # (Auto) 0.5 0.0-1.0 X 10^3 Monocytes (%) (Auto) 9 0-12 % Neutrophils # (Auto) 3.1 1.8-7.8 X 10^3 Neutrophils (%) (Auto) 53 42-75 % Platelet Count 349 130-400 10^3/uL Potassium Level 4.6 3.6-5.0 MMOL/L Prothrombin Time 13.9 12.2-14.7 SEC Red Blood Count 4.39 4.35-5.85 10^6/uL Red Cell Distribution Width 14.7 H 10.0-14.5 % Serum Alcohol < 10 <10 MG/DL Sodium Level 135 135-145 MMOL/L Thyroid Stimulating Hormone (TSH) 0.77 0.35-4.94 UIU/ML Total Bilirubin 0.5 0.1-1.0 MG/DL Total Protein 7.0 6.4-8.2 G/DL White Blood Count 5.8 4.3-11.0 10^3/uL My Orders Orders-MELVI MIX APRN Ua Culture If Indicated (08/06/16 15:33) Cbc With Automated Diff (08/06/16 15:33) Comprehensive Metabolic Panel (08/06/16 15:33) Saline Lock/Iv-Start (08/06/16 15:33) Chest Pa/Lat (2 View) (08/06/16 15:45) Thyroid Stimulating Hormone (08/06/16 15:45) Protime With Inr (08/06/16 15:45) Partial Thromboplastin Time (08/06/16 15:45) Drug Screen Stat (Urine) (08/06/16 15:45) Alcohol (08/06/16 15:45) Ekg Tracing (08/06/16 15:51) Ct Abdomen/Pelvis W (08/06/16 15:56) BNP (08/06/16 15:57) Iohexol Injection (Omnipaque 350 Mg/Ml 1 (08/06/16 16:15) Ns (Ivpb) (Sodium Chloride 0.9% Ivpb Bag (08/06/16 16:15) Rx-Nitroglycerin Sl Tabs (Rx-Nitrostat S (08/06/16 16:30) Medications Given in ED Current Medications Medications Dose Ordered Sig/Max Route Start Time Stop Time Status Last Admin Dose Admin Iohexol 100 ml ONCE ONCE IV 08/06/16 16:15 08/06/16 16:16 DC 08/06/16 16:18 100 ML Sodium Chloride 100 ml ONCE ONCE IV 08/06/16 16:15 08/06/16 16:16 DC 08/06/16 16:18 80 ML Vital Signs/I&O Vital Sign - Last 12Hours 08/06/16 15:22 Temp 98.3 Pulse 76 Resp 18 B/P 108/69 Pulse Ox 94 O2 Delivery Room Air Blood Pressure Mean: 82 Diagnostic Imaging Diagonstic Imaging: Xray Plain Films/CT/US/NM/MRI: chest Comments NAME: SHAYLA FUNK BellaDati REC#: [id number] PT STATUS: REG ER : 1940 PHYSICIAN: MELVI MIX APRN ADMIT DATE: 08/06/16/ER Draft Date of Exam:08/06/16 CHEST PA/LAT (2 VIEW) INDICATION: Injury from a fall. PA and lateral chest. FINDINGS: There is a small left pleural effusion. Lungs are clear. There is no pneumothorax. IMPRESSION: Small left pleural effusion. No change compared to exam dated 07/13/2016. Dictated on workstation # [id number] Dict: 08/06/16 1629 Trans: 08/06/16 1632 [id number] Interpreted by: GISELLE MATA Electronically signed by: NAME: SHAYLA FUNK BellaDati REC#: [id number] PT STATUS: REG ER : 1940 PHYSICIAN: MELVI MIX APRN ADMIT DATE: 08/06/16/ER Draft Date of Exam:08/06/16 CT ABDOMEN/PELVIS W PROCEDURE: CT abdomen and pelvis with contrast. TECHNIQUE: Multiple contiguous axial images were obtained through the abdomen and pelvis after administration of intravenous contrast. INDICATION: Fall. History of splenic injury. COMPARISON: 07/13/2016 and 06/29/2016. FINDINGS: There is a febii-pe-xcczulzs left pleural effusion and mild left basilar atelectasis, appearing slightly increased compared to the previous study. The right lung demonstrates minimal atelectasis at the lung base. There is a iivjsrso-ie-kjsrw subacute subcapsular hematoma in the spleen along its lateral aspect measuring 7.9 x 10 x 11.3 cm compared to 13 x 10.1 x 14 cm on 07/13/2016. There is no active extravasation of contrast seen. There are coils noted along the anterior aspect of the splenic hilar vessel branches laterally and inferiorly near the location of active extravasation of contrast based on CT scan of 06/29/2016. No evidence of active bleeding at this point. 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 There is no fluid collection or air-fluid level seen to suggest superimposed abscess formation. The liver, the adrenal glands, the pancreas, and cholecystectomy clips are seen with no significant abnormality. The kidneys have symmetric enhancement and contrast excretion. The abdominal aorta is normal in caliber. No para-aortic significantly enlarged lymph nodes are seen. There is beam hardening artifact from right hip replacement seen. There is laxity of the anterior abdominal wall musculature with diastasis of the recti above the level of the umbilicus in the anterior abdominal wall. IMPRESSION: 1. Beazhbll-ft-oduzv subacute subcapsular splenic hematoma, slightly smaller in size compared to 07/13/2016. No active extravasation of contrast seen. 2. Stable to slightly enlarged cvnim-vx-akkbdybk left pleural effusion with associated left basilar atelectasis. Dictated on workstation # [id number] Dict: 08/06/16 1638 Trans: 08/06/16 1655 [id number] Interpreted by: ELIZABETH PEREZ MD was 8.4. Currently today is 11.4. 1703-[facility] [place] [facility] notified of patient's complaints. I'm awaiting a phone call back from Radha Box, to come screen the patient 1904- Dr. Hanson has accepted the patient to [facility] at [facility] where the patient has been transferred via Megan Contreras Impression Impression: Primary Impression: Recurrent falls Additional Impression: Feeling like committing suicide Disposition: 65 XFER TO PSYCH HOSP/UNIT Condition: Stable Departure-Patient Inst. Referrals: Hellen KRAMER MD (PCP/Family) Primary Care Physician MELVI MIX APRN Aug 06, 2016 15:45
[2016-08-06 15:55] LABS: BILIRUBIN,URINE NEGATIVE (NEGATIVE); KETONES,URINE NEGATIVE (NEGATIVE); LEUKOCYTE ESTERASE ,URINE NEGATIVE (NEGATIVE); NITRITE,URINE NEGATIVE (NEGATIVE); PH,URINE 7 (5-9); PROTEIN,URINE NEGATIVE (NEGATIVE); UROBILINOGEN,URINE NORMAL (NORMAL)
[2016-08-06 16:05] LABS: WBC,URINE RARE /HPF
[2016-08-06 16:08] LABS: BASOPHILS % (AUTO) 1 % (0-10); EOSINOPHILS # (AUTO) 0.2 10^3/uL (0.0-0.3); EOSINOPHILS % (AUTO) 4 % (0-10); LYMPHOCYTES % (AUTO) 34 % (12-44); MEAN CORPUSCULAR HEMOGLOBIN 26 PG (25-34); MEAN CORPUSCULAR HGB CONC 32 G/DL (32-36); MEAN CORPUSCULAR VOLUME 83 FL (80-99); MEAN PLATELET VOLUME 8.1 FL (7.4-10.4); MONOCYTES # (AUTO) 0.5 X 10^3 (0.0-1.0); MONOCYTES % (AUTO) 9 % (0-12); NEUTROPHILS # (AUTO) 3.1 X 10^3 (1.8-7.8); NEUTROPHILS % (AUTO) 53 % (42-75); PLATELET COUNT 349 10^3/uL (130-400); RED BLOOD COUNT 4.39 10^6/uL (4.35-5.85); RED CELL DISTRIBUTION WIDTH 14.7 % (10.0-14.5); WHITE BLOOD COUNT 5.8 10^3/uL (4.3-11.0)
[2016-08-06 16:14] LABS: INR 1.1 (0.8-1.4); PROTHROMBIN TIME PATIENT 13.9 SEC (12.2-14.7)
[2016-08-06] MEDS ORDERED: IOHEXOL 350 MG/ML 100 ML (OMNIPAQUE 350) VIAL IV ONE (16:15)
[2016-08-06] MEDS ORDERED: NS 100 ML (IVPB) BAG IV ONE (16:15)
[2016-08-06 16:26] LABS: ALANINE AMINOTRANSFERASE 10 U/L (0-55); ALBUMIN 3.5 G/DL (3.2-4.5); ANION GAP 6 MMOL/L (5-14); ASPARTATE AMINO TRANSFERASE 21 U/L (5-34); BILIRUBIN,TOTAL 0.5 MG/DL (0.1-1.0); BLOOD UREA NITROGEN 23 MG/DL (7-18); BUN/CREATININE RATIO 24; CALCIUM 9.2 MG/DL (8.5-10.1); CARBON DIOXIDE 27 MMOL/L (21-32); CHLORIDE 102 MMOL/L (98-107); CREATININE SERUM 0.97 MG/DL (0.60-1.30); GFR ESTIMATED > 60; GLUCOSE 85 MG/DL (70-105); POTASSIUM 4.6 MMOL/L (3.6-5.0); SODIUM 135 MMOL/L (135-145)
[2016-08-06 16:27] LABS: ALCOHOL < 10 MG/DL (<10)
[2016-08-06] MEDS ORDERED: RX-NITROGLYCERIN 0.4 MG TAB BTL 25'S SL STA (16:30)
--- NOTE | 2016-08-06 16:32 | Diagnostic Imaging Report ---
INDICATION: Injury from a fall. PA and lateral chest. FINDINGS: There is a small left pleural effusion. Lungs are clear. There is no pneumothorax. IMPRESSION: Small left pleural effusion. No change compared to exam dated 07/13/2016. Dictated by: Dictated on workstation # [id number]
[2016-08-06 16:46] LABS: THYROID STIMULATING HORMONE 0.77 UIU/ML (0.35-4.94)
--- NOTE | 2016-08-06 16:55 | Diagnostic Imaging Report ---
PROCEDURE: CT abdomen and pelvis with contrast. TECHNIQUE: Multiple contiguous axial images were obtained through the abdomen and pelvis after administration of intravenous contrast. INDICATION: Fall. History of splenic injury. COMPARISON: 07/13/2016 and 06/29/2016. FINDINGS: There is a opegm-qg-ngakscek left pleural effusion and mild left basilar atelectasis, appearing slightly increased compared to the previous study. The right lung demonstrates minimal atelectasis at the lung base. There is a ubqrwmjp-ih-yfjhk subacute subcapsular hematoma in the spleen along its lateral aspect measuring 7.9 x 10 x 11.3 cm compared to 13 x 10.1 x 14 cm on 07/13/2016. There is no active extravasation of contrast seen. There are coils noted along the anterior aspect of the splenic hilar vessel branches laterally and inferiorly near the location of active extravasation of contrast based on CT scan of 06/29/2016. No evidence of active bleeding at this point. 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 There is no fluid collection or air-fluid level seen to suggest superimposed abscess formation. The liver, the adrenal glands, the pancreas, and cholecystectomy clips are seen with no significant abnormality. The kidneys have symmetric enhancement and contrast excretion. The abdominal aorta is normal in caliber. No para-aortic significantly enlarged lymph nodes are seen. There is beam hardening artifact from right hip replacement seen. There is laxity of the anterior abdominal wall musculature with diastasis of the recti above the level of the umbilicus in the anterior abdominal wall. IMPRESSION: 1. Qdscszor-tp-ocftd subacute subcapsular splenic hematoma, slightly smaller in size compared to 07/13/2016. No active extravasation of contrast seen. 2. Stable to slightly enlarged rtgjo-nq-lpipchwy left pleural effusion with associated left basilar atelectasis. Dictated by: Dictated on workstation # [id number]
[2016-08-06 19:00] VITALS: BP 118/66
== END 2016-08-06 19:00 ==
LOC: EDUNIT# 15:11 → ER 15:13
DX: R45.851 Suicidal ideations (principal); R41.0 Disorientation, unspecified; J90 Pleural effusion, not elsewhere classified; R29.6 Repeated falls; I25.10 Atherosclerotic heart disease of native coronary artery without angina pectoris; E11.9 Type 2 diabetes mellitus without complications; I10 Essential (primary) hypertension; Z87.891 Personal history of nicotine dependence
CPT/HCPCS: 36415; 71020; 74177; 80053; 80306; 80320; 81000; 83880; 84443; 85025; 85610; 85730; 93005